=== PATIENT | female | born 1955 | race Caucasian/White ===

== ENCOUNTER 2019-02-14 23:35 | Inpatient (IN) | payer MEDICARE ==
[~2019-02-14] VITALS: Ht 152.4 cm; Wt 71.3 kg
[2019-02-15] MEDS ORDERED: MAG HYDROX/AL HYDROX/SIMETH 30 ML ORAL.SUSP PO PRN (00:15)
[2019-02-15] MEDS ORDERED: METHYL SALICYLATE/MENTHOL TOPICAL OINTMENT 57GM TUBE. TP PRN (00:15)
[2019-02-15] MEDS ORDERED: MAGNESIUM HYDROXIDE 2,400 MG/30 ML ORAL.SUSP. PO PRN (00:15)
[2019-02-15] MEDS ORDERED: ACETAMINOPHEN 325 MG TABLET PO PRN (00:15)
[2019-02-15 00:24] VITALS: BP 159/78
[2019-02-15 05:59] VITALS: BP 149/72
[2019-02-15] MEDS: HALOPERIDOL LACT 5 MG/ML VIAL. IM SCH (09:51)
[2019-02-15 13:02] LABS: BASO % 0 % (0-3); EOS % 0 % (0-3); LYMPH % 21 % (24-48); MEAN CORPUSCULAR HEMOGLOBIN 31 pg (25-35); MEAN CORPUSCULAR HGB CONC 33 g/dL (31-37); MEAN CORPUSCULAR VOLUME 92 fL (79-100); MONO # 0.5 x10^3/uL (0.0-1.1); MONO % 5 % (0-9); NEUT # 7.1 x10^3uL (1.8-7.7); NEUT % 74 % (31-73); PLATELET COUNT 295 x10^3/uL (140-400); RED BLOOD COUNT 4.56 x10^6/uL (3.50-5.40); RED CELL DISTRIBUTION WIDTH 13.3 % (11.5-14.5); WHITE BLOOD COUNT 9.6 x10^3/uL (4.0-11.0)
[2019-02-15 13:10] LABS: ALBUMIN 3.8 g/dL (3.4-5.0); CALCIUM 9.4 mg/dL (8.5-10.1); CREATININE 0.7 mg/dL (0.6-1.0); GFR 84.8; MAGNESIUM 2.2 mg/dL (1.8-2.4); POTASSIUM 3.9 mmol/L (3.5-5.1); TOTAL BILIRUBIN 0.3 mg/dL (0.2-1.0); TOTAL PROTEIN 7.8 g/dL (6.4-8.2)
[2019-02-15 16:07] LABS: BILIRUBIN,URINE NEG (NEG); CLARITY,URINE CLEAR; COLOR,URINE YELLOW; GLUCOSE,URINE NEG (NEG)
[2019-02-15 16:08] LABS: BACTERIA,URINE 0 /HPF (0-FEW); NITRITE,URINE NEG (NEG); RBC,URINE OCC /HPF (0-2); SQUAMOUS EPITHELIAL CELL,UR FEW /LPF; UROBILINOGEN,URINE 0.2 mg/dL (0.2 mg/dL)
[2019-02-15 16:24] VITALS: BP 156/88
[2019-02-15 17:06] LABS: THYROXINE 7.8 ug/dL (4.5-12.0)
[2019-02-15 21:03] LABS: THYROID STIM HORMONE (TSH) 1.295 uIU/mL (0.358-3.740)
--- NOTE | 2019-02-15 21:27 | HP ---
ADMIT DATE: 02/14/2019 This note covers elements not covered in my initial note of 02/15. IDENTIFYING DATA: The patient is a 63-year-old female referred to us from [facility] Emergency Room after she presented there from home via EMS after the police was called as the patient was withholding medications from her elderly mother. It was deemed that the patient was a potential danger and there is an order restraining her from returning to the home. She does have a history of schizoaffective disorder, bipolar type and has not been taking her psychotropics for several months and not going for her treatment to the [facility]. She has also failed a prior inpatient hospitalization at [facility], Psychiatry Unit and they refused to take her back because of her noncompliance with treatment and they felt they were unable to care for her given her level of psychosis, agitation, elopement. The patient was refusing to allow home health to enter the house, was found to have a large quantity of matches at the bottom of the stairs and the family were unsure of the intent. She was delusional, paranoid, making sexually inappropriate behaviors in the ambulance on the way there. CHIEF COMPLAINT: "No." I sat with the patient in her room for some time, but she is paranoid, psychotic, had a fixed stare, refused to answer any questions. I had also been called as an emergency early this morning as the patient was extremely psychotic, unmanageable. Her sister, Talita White, is her guardian. We got a consent from her and the patient requested intramuscular medications and she was started on Haldol 5 mg IM, Ativan 0.5 mg IM daily since oral psychotropics have been ineffective. HISTORY OF PRESENT ILLNESS: The patient has a long history of schizoaffective disorder, bipolar type treated at the [facility]. Those records will be requested, but at the time of this dictation, I have reviewed records from [facility]. In the past when she was hospitalized there at one point, she was treated on Seroquel, Effexor, Depakote and lithium, but as noted, she is noncompliant with the psychotropics recently. She has had significant sleep and appetite changes and behaviors that have been deemed dangerous as noted above. Reportedly, there is an order of protection and no trespassing order filed against the patient by the sister and the parents DPOA that she cannot return home. PAST MEDICAL HISTORY: Noncontributory. ALLERGIES: CODEINE, SULFADIAZINE and she is allergic to MILK-CONTAINING PRODUCTS and MONOSODIUM GLUTAMATE. CURRENT PSYCHOTROPICS: As noted, Haldol 5 mg IM daily started this morning together with Ativan 0.5 mg IM daily. PAST PSYCHIATRIC HISTORY: She has had several stays at other psych facilities including [facility], [facility], [facility]. Records will be requested from all of these. FAMILY HISTORY: Noncontributory. SOCIAL HISTORY: No history of alcohol, drug abuse, physical, sexual or elder abuse. She is not known to be a perpetrator from the information I have at this time. ASSETS: Supportive sister who is her guardian, medically reasonably healthy. REACTION TO HOSPITALIZATION: The patient resistive, but not forthcoming talking about her response to this. MENTAL STATUS EXAMINATION: The patient was seen individually on evening of 02/15. She refused to answer orientation questions, sat across the room for me for an extended period of time, refusing to answer question with a fixed stare, seemed paranoid, psychotic. No active suicidal or homicidal ideation. Attention span is short. Language function is intact. Intellect is average. Insight is poor. Judgment is impaired. IMPRESSION: Schizoaffective disorder, bipolar type mixed with psychotic features; anxiety disorder, unspecified; impulse control disorder, unspecified. Rest diagnoses as above. PLAN: Admit to Geropsychiatry Unit at [facility]. I will see the patient daily individually from a psychiatric standpoint. Request past records. Continue the IM medications for now. Consider Depo preparations. Estimated length of stay 10-12 days. DISPOSITION: Since she cannot return home, placement will need to be arranged. QIANA MARTEL MD DR: KOSTA/kuldip JOB#: [id number] / [id number]
--- NOTE | 2019-02-15 22:29 | PDOC ---
Exam Note: Johny Note: Please also refer to the separate dictated note~for this date of service dictated separately. Discussed the patient with Nursing staff reviewed the chart.~Reviewed interim history and current functioning. Reviewed vital signs,~Labs/ Radiology~and current medications noted below. Continue current treatment with the changes noted in the dictated addendum note Assessment: Vital Signs/I&O: Vital Signs Date Time Temp Pulse Resp B/P (MAP) Pulse Ox O2 Delivery O2 Flow Rate FiO2 02/15/19 16:24 97.8 104 20 156/88 (110) 98 02/15/19 05:59 Room Air Labs: Laboratory Tests Test 02/15/19 12:40 02/15/19 14:20 White Blood Count 9.6 x10^3/uL (4.0-11.0) Red Blood Count 4.56 x10^6/uL (3.50-5.40) Hemoglobin 14.0 g/dL (12.0-15.5) Hematocrit 42.0 % (36.0-47.0) Mean Corpuscular Volume 92 fL (79-100) Mean Corpuscular Hemoglobin 31 pg (25-35) Mean Corpuscular Hemoglobin Concent 33 g/dL (31-37) Red Cell Distribution Width 13.3 % (11.5-14.5) Platelet Count 295 x10^3/uL (140-400) Neutrophils (%) (Auto) 74 % (31-73) H Lymphocytes (%) (Auto) 21 % (24-48) L Monocytes (%) (Auto) 5 % (0-9) Eosinophils (%) (Auto) 0 % (0-3) Basophils (%) (Auto) 0 % (0-3) Neutrophils # (Auto) 7.1 x10^3uL (1.8-7.7) Lymphocytes # (Auto) 2.0 x10^3/uL (1.0-4.8) Monocytes # (Auto) 0.5 x10^3/uL (0.0-1.1) Eosinophils # (Auto) 0.0 x10^3/uL (0.0-0.7) Basophils # (Auto) 0.0 x10^3/uL (0.0-0.2) Sodium Level 139 mmol/L (136-145) Potassium Level 3.9 mmol/L (3.5-5.1) Chloride Level 103 mmol/L (98-107) Carbon Dioxide Level 26 mmol/L (21-32) Anion Gap 10 (6-14) Blood Urea Nitrogen 13 mg/dL (7-20) Creatinine 0.7 mg/dL (0.6-1.0) Estimated GFR (Cockcroft-Gault) 84.8 BUN/Creatinine Ratio 19 (6-20) Glucose Level 153 mg/dL (70-99) H Calcium Level 9.4 mg/dL (8.5-10.1) Magnesium Level 2.2 mg/dL (1.8-2.4) Iron Level 46 ug/dL (50-170) L Total Iron Binding Capacity 359 ug/dL (250-450) Iron Saturation 13 % (15-34) L Total Bilirubin 0.3 mg/dL (0.2-1.0) Aspartate Amino Transferase (AST) 21 U/L (15-37) Alanine Aminotransferase (ALT) 34 U/L (14-59) Alkaline Phosphatase 122 U/L (46-116) H Total Protein 7.8 g/dL (6.4-8.2) Albumin 3.8 g/dL (3.4-5.0) Albumin/Globulin Ratio 1.0 (1.0-1.7) Triglycerides Level 80 mg/dL (0-150) Cholesterol Level 212 mg/dL (0-200) H LDL Cholesterol, Calculated 145 mg/dL (0-100) H VLDL Cholesterol, Calculated 16 mg/dL (0-40) Non-HDL Cholesterol Calculated 161 mg/dL (0-129) H HDL Cholesterol 51 mg/dL (40-60) Cholesterol/HDL Ratio 4.0 Thyroid Stimulating Hormone (TSH) 1.295 uIU/mL (0.358-3.740) Thyroxine (T4) 7.8 ug/dL (4.5-12.0) Total Triiodothyronine (TT3) 133 ng/dL (71-180) Urine Collection Type Unknown Urine Color Yellow Urine Clarity Clear Urine pH 7.0 Urine Specific Ogden 1.020 Urine Protein Neg (NEG-TRACE) Urine Glucose (UA) Neg mg/dL (NEG) Urine Ketones (Stick) 15 mg/dL (NEG) Urine Blood Trace (NEG) Urine Nitrite Neg (NEG) Urine Bilirubin Neg (NEG) Urine Urobilinogen Dipstick 0.2 mg/dL (0.2 mg/dL) Urine Leukocyte Esterase Neg (NEG) Urine RBC Occ /HPF (0-2) Urine WBC 1-4 /HPF (0-4) Urine Squamous Epithelial Cells Few /LPF Urine Bacteria 0 /HPF (0-FEW) Current Medications: Meds: Current Medications Medications (Trade) Dose Ordered Sig/Victorino Route PRN Reason Start Time Stop Time Status Last Admin Dose Admin Haloperidol Lactate (Haldol) 5 mg DAILY IM 02/15/19 09:45 02/15/19 09:55 Lorazepam (Ativan Inj) 0.5 mg DAILY IM 02/15/19 09:45 02/15/19 09:55 I have reviewed the current psychotropics carefully including drug interactions. Risk benefit ratio favors no change other than as noted in my dictated progress note. Diagnosis: Problems: (1) Anxiety disorder (2) Bipolar affective disorder, mixed (3) Bipolar affective, mixed, sev w/ psych (4) Major depressive disorder, recurrent episode (5) Impulse control disorder QIANA MARTEL MD Feb 15, 2019 22:29
[2019-02-16 01:10] LABS: HEMOGLOBIN A1C 5.7 % (4.8-5.6)
[2019-02-16 05:42] VITALS: BP 141/73
[2019-02-16] MEDS: HALOPERIDOL LACT 5 MG/ML VIAL. IM SCH (09:21)
[2019-02-16 16:06] VITALS: BP 153/86
[2019-02-16] MEDS: CHOLECALCIFEROL (VITAMIN D3) 50,000 UNIT CAPSULE PO SCH (17:05)
--- NOTE | 2019-02-17 00:21 | CONS ---
DATE OF CONSULTATION: REASON FOR CONSULTATION: Medical management. HISTORY OF PRESENT ILLNESS: The patient is a 63-year-old female patient who was admitted on account of not taking her medication for several months, withholding medication from elderly mother, not allow home health to enter the house, found to have large quantity of matches at the bottom of the stairs, family unsure of the intent. She is delusional, paranoid, making sexually inappropriate behaviors in the Emergency Room, in ambulance on the way here, all this in a background of schizoaffective disorder with psychosis and bipolar disorder, mixed. PAST MEDICAL HISTORY: Unobtainable. The patient refused to answer any question. PAST PSYCHIATRIC HISTORY: Significant for schizophrenia, bipolar with depression. PAST SURGICAL HISTORY: Unobtainable as the patient is refusing to answer any questions. ALLERGIES: She is allergic to MONOSODIUM GLUTAMATE, MILK CONTAINING PRODUCTS, CODEINE AND SULFADIAZINE. We actually do not know the medication that she takes at home. Apparently, she has been admitted to different psychiatric units before. She apparently was admitted to [facility], [facility] and another center in [place] for inpatient psychiatric treatment, although I do not have any records from there. FAMILY HISTORY: Unobtainable. SOCIAL HISTORY: She apparently lives with her elderly mother. She is not forthcoming with any information. PHYSICAL EXAMINATION: GENERAL: On examining her today, she was sitting comfortably in her chair, in no apparent respiratory distress. There was no pallor, jaundice, cyanosis or thyromegaly. No jugular venous distention. No limb edema. VITAL SIGNS: Her heart rate was 80, blood pressure 153/86, temperature was 98.1, respiratory rate was 20 and oxygen saturation was 97%. She seemed to be medically stable. NEUROLOGIC: She walks without an assistance or assistive devices. LABORATORY DATA: Showed that her serum sodium was 139, potassium 3.9, chloride 103, bicarbonate 26, anion gap of 10, BUN 13, creatinine 0.7, estimated GFR was 84 mL per minute. Her glucose was 153, calcium was 9.4, magnesium 2.2. Her total bilirubin, AST, ALT, alkaline phosphatase were normal. Total protein was 7.8, albumin was 3.8. Her white cell count was 9600, hemoglobin 14, hematocrit 42, MCV 92 and platelet count 295,000. Her serum triglycerides were 80, total cholesterol 212, LDL cholesterol 145, VLDL was 16, HDL cholesterol 51, cholesterol to HDL cholesterol ratio was 4. Her 25-hydroxy vitamin D was 24, which is low. Her TSH, total T4 and total T3 are all within normal ranges. Her serum iron is slightly low at 46, TIBC is high at 359 and iron saturation was 13%. Her hemoglobin A1c was 5.7%. Her urinalysis showed the urine was yellow, clear with a pH of 7, specific gravity of 1.020. The urine was negative for protein, glucose. It was trace of ketones, trace of blood, negative for nitrite and leukocyte esterase. There are occasional rbc's, 1-4 wbc's and very few bacteria. Her treponema pallidum antibodies are nonreactive. IMPRESSION: In summary, this is a 63-year-old female patient who was admitted on account of not taking her medication for several months, withholding medication from elderly mother, not allow home health to enter house, found to have large quantity of matches at the bottom of the stairs, family unsure of the intent. She is delusional, paranoid, making sexually inappropriate behavior in the Emergency Room and in ambulance the way here. All this in a background of schizoaffective disorder with psychosis, bipolar disorder, mixed. It is difficult to obtain any information from her. She is not forthcoming with any information. She apparently was admitted in different places at [facility] or [facility] in [facility]. We would order medical record from all these centers to get more information about her medically apart from vitamin D deficiency and she is otherwise stable. Her blood sugar was slightly high; however, this is random blood sugar, not fasting particular. I will obviously follow all her lab works and obviously once medical record become available, I will review them and make any necessary recommendation. Thank you, Dr. Madsen for allowing me to participate in the care of this patient. EMILIANO OROZCO MD DR: SANDY/kuldip JOB#: [id number] / [id number]
[2019-02-17 05:43] VITALS: BP 142/75
--- NOTE | 2019-02-17 08:50 | PDOC ---
Exam Note: Johny Note: Late entry for DOS 02/16/2019. Please also refer to the separate dictated note~for this date of service dictated separately.~Patient seen individually. Discussed the patient with Nursing staff reviewed the chart.~Reviewed interim history and current functioning. Reviewed vital signs,~Labs/ Radiology~and current medications noted below. Continue current treatment with the changes noted in the dictated addendum note Assessment: Vital Signs/I&O: Vital Signs Date Time Temp Pulse Resp B/P (MAP) Pulse Ox O2 Delivery O2 Flow Rate FiO2 02/17/19 05:43 97.4 110 20 142/75 (97) 100 Room Air I & O 02/16/19 02/16/19 02/17/19 14:59 22:59 06:59 Intake Total 600 ml 240 ml 100 ml Balance 600 ml 240 ml 100 ml Current Medications: Meds: Current Medications Medications (Trade) Dose Ordered Sig/Victorino Route PRN Reason Start Time Stop Time Status Last Admin Dose Admin Vitamin D (Vitamin D3) 50,000 unit WEEKLY PO 02/16/19 16:45 02/16/19 17:05 I have reviewed the current psychotropics carefully including drug interactions. Risk benefit ratio favors no change other than as noted in my dictated progress note. Diagnosis: Problems: (1) Anxiety disorder (2) Bipolar affective disorder, mixed (3) Bipolar affective, mixed, sev w/ psych (4) Major depressive disorder, recurrent episode (5) Impulse control disorder QIANA MARTEL MD Feb 17, 2019 08:50
[2019-02-17] MEDS: HALOPERIDOL LACT 5 MG/ML VIAL. IM SCH (09:07)
[2019-02-17] MEDS ORDERED: CHOLECALCIFEROL (VITAMIN D3) 50,000 UNIT CAPSULE PO ONE (13:00)
[2019-02-17 15:43] VITALS: BP 141/79
[2019-02-17] MEDS: risperiDONE ORAL 1 MG/ML 30ml BOTTLE. SL SCH (20:33)
--- NOTE | 2019-02-17 22:24 | PDOC ---
Exam Note: Johny Note: Please also refer to the separate dictated note~for this date of service dictated separately.~Patient seen individually. Discussed the patient with Nursing staff reviewed the chart.~Reviewed interim history and current functioning. Reviewed vital signs,~Labs/ Radiology~and current medications noted below. Continue current treatment with the changes noted in the dictated addendum note Assessment: Vital Signs/I&O: Vital Signs Date Time Temp Pulse Resp B/P (MAP) Pulse Ox O2 Delivery O2 Flow Rate FiO2 02/17/19 15:43 97.8 101 20 141/79 (99) 98 Room Air I & O 02/16/19 02/16/19 02/17/19 15:00 23:00 07:00 Intake Total 600 ml 240 ml 100 ml Balance 600 ml 240 ml 100 ml Current Medications: Meds: Current Medications Medications (Trade) Dose Ordered Sig/Victorino Route PRN Reason Start Time Stop Time Status Last Admin Dose Admin Vitamin D (Vitamin D3) 50,000 unit 1X ONCE PO 02/17/19 13:00 02/17/19 13:01 DC 02/17/19 13:26 Risperidone (RisperDAL) 1 mg QHS SL 02/17/19 21:00 02/17/19 20:34 I have reviewed the current psychotropics carefully including drug interactions. Risk benefit ratio favors no change other than as noted in my dictated progress note. Diagnosis: Problems: (1) Anxiety disorder (2) Bipolar affective disorder, mixed (3) Bipolar affective, mixed, sev w/ psych (4) Major depressive disorder, recurrent episode (5) Impulse control disorder QIANA MARTEL MD Feb 17, 2019 22:23
--- NOTE | 2019-02-18 00:52 | PN ---
DATE: 02/16/2019 PSYCHIATRIC PROGRESS NOTE This late entry, 02/16, covers elements not covered in my initial note. SUBJECTIVE: I met with the patient in the evening of 02/16. Per nursing report, the patient remains quite delusional and psychotic. She made a statement to the nursing staff "I can't take medications, I'm ." Nursing staff reassured her that this was her perception rather than reality. When nursing staff asked orientation questions as I did, she responded back "do you know where you are." Most of the morning, she was staring at the wall looking out of the window, quite psychotic, but much more interactive and talkative as I met with her in the evening. She slept 7 hours previous night, did receive her IM Haldol and Ativan. REVIEW OF SYSTEMS: No CV, , pulmonary, eye, ENT system symptoms on review. I met with her at length in her room. MENTAL STATUS EXAM: Oriented to herself and situation. Speech much more verbal with me, less paranoid. Abstraction fair, computation impaired, language function intact, attention span short. Mood and affect withdrawn. I reviewed past records from [facility] and a diagnosis of schizoaffective disorder, bipolar type, with psychotic features, and treatment at different times on Seroquel, Effexor, Depakote, lithium, amongst others. No active suicidal or homicidal ideation. Still psychotic as I assessed in the evening. LABORATORY DATA: Reviewed. IMPRESSION: Schizoaffective disorder, bipolar type, mixed with psychotic features; anxiety disorder, unspecified; impulse control disorder, unspecified. PLAN: Continue Haldol and Ativan IM scheduled daily given the reasons noted previously. May consider Risperdal Consta given her significant noncompliance with treatment. We will consider starting her on Depakote as well as she is more cooperative with taking her psychotropics. We will await past psychiatric records from [facility]. I have carefully evaluated her psychotropics, drug interactions, risk/benefit ratio correlating it with past treatments. We will make further changes as clinically indicated. QIANA MARTEL MD DR: KOSTA/kuldip JOB#: [id number] / [id number]
[2019-02-18 06:27] VITALS: BP 129/79
[2019-02-18] MEDS: HALOPERIDOL LACT 5 MG/ML VIAL. IM SCH (09:31)
[2019-02-18 15:48] VITALS: BP 136/75
[2019-02-18] MEDS: risperiDONE ORAL 1 MG/ML 30ml BOTTLE. SL SCH (20:46)
--- NOTE | 2019-02-18 21:55 | PDOC ---
Exam Note: Johny Note: Please also refer to the separate dictated note~for this date of service dictated separately.~Patient seen individually. Discussed the patient with Nursing staff reviewed the chart.~Reviewed interim history and current functioning. Reviewed vital signs,~Labs/ Radiology~and current medications noted below. Continue current treatment with the changes noted in the dictated addendum note Assessment: Vital Signs/I&O: Vital Signs Date Time Temp Pulse Resp B/P (MAP) Pulse Ox O2 Delivery O2 Flow Rate FiO2 02/18/19 15:48 96.9 106 18 136/75 (95) 98 02/17/19 15:43 Room Air I & O 02/17/19 02/17/19 02/18/19 15:00 23:00 07:00 Intake Total 720 ml 240 ml 0 ml Balance 720 ml 240 ml 0 ml Current Medications: I have reviewed the current psychotropics carefully including drug interactions. Risk benefit ratio favors no change other than as noted in my dictated progress note. Diagnosis: Problems: (1) Anxiety disorder (2) Bipolar affective disorder, mixed (3) Bipolar affective, mixed, sev w/ psych (4) Major depressive disorder, recurrent episode (5) Impulse control disorder QIANA MARTEL MD Feb 18, 2019 21:55
--- NOTE | 2019-02-19 00:57 | PN ---
DATE: 02/17/2019 This late entry, 02/17/2019, covers elements not covered in my initial note. SUBJECTIVE: I met with the patient in the evening of 02/17/2019. The patient slept 5-1/2 hours previous night. She did come out and sit in the day room, which is quite an improvement for her, attended groups, but only spoken monosyllabic responses. She is still delusional, psychotic, believes she is , and refused vitamin D. Later, when nursing staff stated they might have to syringe it for her, she accepted it. She still receives IM Haldol 5 mg, Ativan 0.5 mg daily, and I have reviewed her past psychiatric records from the [facility] Psychiatry service and past treatments included Invega Sustenna and Haldol Decanoate 100 mg IM and then Zyprexa 10 mg daily along with lithium and Depakote as mood stabilizers at different times. REVIEW OF SYSTEMS: No CV, , pulmonary, eye, ENT system symptoms on review. Reliability somewhat poor due to her paranoia. I met with her at some length in her room. MENTAL STATUS EXAM: Oriented to herself and situation, though she is quite dismissive in questions of orientation I asked of her. Abstraction fair, computation impaired, language function intact, attention span short. Mood and affect somewhat withdrawn, still paranoid, psychotic, but better than before. Verbally little more interactive. LABORATORY DATA: Reviewed. IMPRESSION: Schizoaffective disorder, bipolar type, mixed with psychotic features; psychotic disorder, unspecified; mild cognitive impairment. Rest unchanged. PLAN: We will go ahead and start Risperdal 1 mg daily. Continue the scheduled Haldol IM and Ativan IM for now. Consider Depakote as a mood stabilizer, increase the Risperdal gradually as tolerated and ultimately stop the daily IM Haldol, Ativan and consider Risperdal Consta at some point depending on her compliance with oral psychotropics. MAN Suri MARTEL MD DR: KOSTA/kuldip JOB#: [id number] / [id number]
[2019-02-19 06:10] VITALS: BP 138/81
[2019-02-19] MEDS: HALOPERIDOL LACT 5 MG/ML VIAL. IM SCH (09:28)
[2019-02-19 15:48] VITALS: BP 131/72
[2019-02-19] MEDS: risperiDONE ORAL 1 MG/ML 30ml BOTTLE. SL SCH (20:38)
--- NOTE | 2019-02-19 22:07 | PDOC ---
Exam Note: Johny Note: Please also refer to the separate dictated note~for this date of service dictated separately.~Patient seen individually. Discussed the patient with Nursing staff reviewed the chart.~Reviewed interim history and current functioning. Reviewed vital signs,~Labs/ Radiology~and current medications noted below. Continue current treatment with the changes noted in the dictated addendum note Assessment: Vital Signs/I&O: Vital Signs Date Time Temp Pulse Resp B/P (MAP) Pulse Ox O2 Delivery O2 Flow Rate FiO2 02/19/19 15:48 97.4 104 18 131/72 (91) 98 Room Air I & O 02/18/19 02/18/19 02/19/19 15:00 23:00 07:00 Intake Total 600 ml 360 ml 0 ml Balance 600 ml 360 ml 0 ml Current Medications: I have reviewed the current psychotropics carefully including drug interactions. Risk benefit ratio favors no change other than as noted in my dictated progress note. Diagnosis: Problems: (1) Anxiety disorder (2) Bipolar affective disorder, mixed (3) Bipolar affective, mixed, sev w/ psych (4) Major depressive disorder, recurrent episode (5) Impulse control disorder QIANA MARTEL MD Feb 19, 2019 22:07
[2019-02-20 05:22] VITALS: BP 125/81
[2019-02-20] MEDS: HALOPERIDOL LACT 5 MG/ML VIAL. IM SCH (07:56)
[2019-02-20] MEDS: risperiDONE MICROSPHERES 25 MG/2 ML DISP.SYRIN. IM SCH (09:00)
[2019-02-20 15:29] VITALS: BP 131/80
[2019-02-20] MEDS: risperiDONE ORAL 1 MG/ML 30ml BOTTLE. SL SCH (20:44)
[2019-02-20] MEDS: DIVALPROEX ER 500 MG TAB.ER.24H PO SCH ×2 (20:44→20:47)
[2019-02-20] MEDS: DIVALPROEX 125 MG CAP.SPRINK PO SCH (21:07)
--- NOTE | 2019-02-20 22:12 | PDOC ---
Exam Note: Johny Note: Please also refer to the separate dictated note~for this date of service dictated separately.~Patient seen individually. Discussed the patient with Nursing staff reviewed the chart.~Reviewed interim history and current functioning. Reviewed vital signs,~Labs/ Radiology~and current medications noted below. Continue current treatment with the changes noted in the dictated addendum note Assessment: Vital Signs/I&O: Vital Signs Date Time Temp Pulse Resp B/P (MAP) Pulse Ox O2 Delivery O2 Flow Rate FiO2 02/20/19 15:29 98.4 111 22 131/80 (97) 98 02/20/19 05:22 Room Air I & O 02/19/19 02/19/19 02/20/19 15:00 23:00 07:00 Intake Total 1200 ml 240 ml 0 ml Balance 1200 ml 240 ml 0 ml Current Medications: Meds: Current Medications Medications (Trade) Dose Ordered Sig/Victorino Route PRN Reason Start Time Stop Time Status Last Admin Dose Admin Risperidone (RisperDAL CONSTA) 25 mg Q2WKS IM 02/20/19 09:00 02/20/19 09:59 Divalproex Sodium (Depakote Er) 500 mg QHS PO 02/20/19 21:00 02/20/19 20:50 DC 02/20/19 20:44 Divalproex Sodium (Depakote Sprinkles) 500 mg HS PO 02/20/19 21:00 02/20/19 21:07 I have reviewed the current psychotropics carefully including drug interactions. Risk benefit ratio favors no change other than as noted in my dictated progress note. Diagnosis: Problems: (1) Anxiety disorder (2) Bipolar affective disorder, mixed (3) Bipolar affective, mixed, sev w/ psych (4) Major depressive disorder, recurrent episode (5) Impulse control disorder QIANA MARTEL MD Feb 20, 2019 22:12
--- NOTE | 2019-02-20 22:50 | PN ---
DATE: 02/18/2019 This late entry, 02/18/2019, covers elements not covered in my initial note. SUBJECTIVE: I met with the patient in the evening of 02/18/2019. The patient slept 8-1/4 hours previous night. She has been somewhat withdrawn, isolative in her room, spending time with another patient, staring at floor at times, psychotic. At one point, she was found on the floor, doing yoga. When I questioned her on this, she states she learned it in [place]. She took her bedtime Risperdal with encouragement. REVIEW OF SYSTEMS: No CV, , pulmonary, eye, ENT system symptoms on review. MENTAL STATUS EXAM: Oriented to herself and situation. Speech has some latency, coherent, often responses monosyllabic. Abstraction fair, computation impaired, language function intact, attention span short. Mood and affect somewhat withdrawn. LABORATORY DATA: Reviewed. IMPRESSION: Unchanged from initial note. PLAN: No change from initial note. QIANA MARTEL MD DR: KOSTA/kuldip JOB#: [id number] / [id number]
--- NOTE | 2019-02-20 23:00 | PN ---
DATE: 02/19/2019 This last entry 02/19 covers elements not covered in my initial note. SUBJECTIVE: I met with the patient evening of 02/19. The patient was also staffed at treatment team meeting with the entire team in the morning. Average sleep is about 6-1/4 hours, appetite 75-100%. She is reluctantly intermittently compliant with her psychotropics. She remains psychotic, somewhat withdrawn, less so than before. REVIEW OF SYSTEMS: No CV, , pulmonary, eye, ENT system symptoms on review. MENTAL STATUS EXAM: Oriented to herself, situation. Speech moderate latency, often responses monosyllabic. Abstraction fair. Computation impaired. Language function intact. Mood and affect is withdrawn. LABORATORY DATA: Reviewed. IMPRESSION: Unchanged from initial note. PLAN: No change from initial note. MAN Suri MARTEL MD DR: KOSTA/kuldip JOB#: [id number] / [id number]
[2019-02-21 05:41] VITALS: BP 144/75
[2019-02-21] MEDS: HALOPERIDOL LACT 5 MG/ML VIAL. IM SCH (08:11)
[2019-02-21 15:50] VITALS: BP 120/63
[2019-02-21] MEDS: DIVALPROEX 125 MG CAP.SPRINK PO SCH (19:54)
[2019-02-21] MEDS: risperiDONE ORAL 1 MG/ML 30ml BOTTLE. SL SCH (19:54)
--- NOTE | 2019-02-21 22:01 | PDOC ---
Exam Note: Johny Note: Please also refer to the separate dictated note~for this date of service dictated separately.~Patient seen individually. Discussed the patient with Nursing staff reviewed the chart.~Reviewed interim history and current functioning. Reviewed vital signs,~Labs/ Radiology~and current medications noted below. Continue current treatment with the changes noted in the dictated addendum note Assessment: Vital Signs/I&O: Vital Signs Date Time Temp Pulse Resp B/P (MAP) Pulse Ox O2 Delivery O2 Flow Rate FiO2 02/21/19 15:50 97.2 100 18 120/63 (82) 99 02/20/19 05:22 Room Air I & O 02/20/19 02/20/19 02/21/19 15:00 23:00 07:00 Intake Total 720 ml 480 ml 0 ml Balance 720 ml 480 ml 0 ml Current Medications: I have reviewed the current psychotropics carefully including drug interactions. Risk benefit ratio favors no change other than as noted in my dictated progress note. Diagnosis: Problems: (1) Anxiety disorder (2) Bipolar affective disorder, mixed (3) Bipolar affective, mixed, sev w/ psych (4) Major depressive disorder, recurrent episode (5) Impulse control disorder QIANA MARTEL MD Feb 21, 2019 22:01
[2019-02-22 06:40] VITALS: BP 120/75
[2019-02-22] MEDS: HALOPERIDOL LACT 5 MG/ML VIAL. IM SCH (07:49)
[2019-02-22 16:05] VITALS: BP 121/78
[2019-02-22] MEDS ORDERED: DIVALPROEX ER 250 MG TAB.ER.24H. PO SCH (21:00)
--- NOTE | 2019-02-22 21:05 | PDOC ---
Exam Note: Johny Note: Please also refer to the separate dictated note~for this date of service dictated separately.~Patient seen individually. Discussed the patient with Nursing staff reviewed the chart.~Reviewed interim history and current functioning. Reviewed vital signs,~Labs/ Radiology~and current medications noted below. Continue current treatment with the changes noted in the dictated addendum note Assessment: Vital Signs/I&O: Vital Signs Date Time Temp Pulse Resp B/P (MAP) Pulse Ox O2 Delivery O2 Flow Rate FiO2 02/22/19 16:05 98.4 108 20 121/78 (92) 98 Room Air I & O 02/21/19 02/21/19 02/22/19 14:59 22:59 06:59 Intake Total 600 ml 240 ml Balance 600 ml 240 ml Current Medications: I have reviewed the current psychotropics carefully including drug interactions. Risk benefit ratio favors no change other than as noted in my dictated progress note. Diagnosis: Problems: (1) Anxiety disorder (2) Bipolar affective disorder, mixed (3) Bipolar affective, mixed, sev w/ psych (4) Major depressive disorder, recurrent episode (5) Impulse control disorder QIANA MARTEL MD Feb 22, 2019 21:05
[2019-02-22] MEDS: risperiDONE ORAL 1 MG/ML 30ml BOTTLE. SL SCH (21:35)
--- NOTE | 2019-02-22 22:28 | PN ---
DATE: 02/20/2019 PSYCHIATRIC PROGRESS NOTE This late entry, 02/20/2019, covers elements not covered in my initial note. SUBJECTIVE: I met with the patient in the evening of 02/20/2019. The patient slept 7-1/4 hours previous night. She has been coming out for her meals, which is an improvement. Did receive her Risperdal Consta on 02/20/2019, slept 7-1/4 hours. REVIEW OF SYSTEMS: No CV, , pulmonary, eye, ENT system symptoms on review. MENTAL STATUS EXAM: Oriented to herself and situation. Speech moderate latency, often responses monosyllabic. Abstraction fair, computation impaired, language function intact. Mood and affect withdrawn, still spends much time in her room, but less so than before. LABORATORY DATA: Reviewed. IMPRESSION: Unchanged from initial note. PLAN: Start Depakote 500 mg p.o. at bedtime. Check CBC, CMP, valproic acid level in 3 days. Continue rest of the psychotropics. QIANA MARTEL MD DR: KOSTA/kuldip JOB#: [id number] / [id number]
--- NOTE | 2019-02-22 22:30 | PN ---
DATE: 02/21/2019 PSYCHIATRIC PROGRESS NOTE This late entry of 02/21/2019 covers the elements not covered in my initial note. SUBJECTIVE: I met with the patient in the evening of 02/21/2019. The patient slept 7-1/2 hours previous night. The patient remains somewhat withdrawn, took her Depakote in pudding, received IM Haldol and Ativan earlier in the day on 02/21/2019. REVIEW OF SYSTEMS: No CV, , pulmonary, eye system symptoms on review. MENTAL STATUS EXAM: Oriented to herself and situation. Speech moderate latency, often responses monosyllabic. Abstraction fair, computation impaired, language function intact, attention span short. Mood and affect withdrawn, but less so than before. LABORATORY DATA: Reviewed. IMPRESSION: Schizoaffective disorder, bipolar type, mixed with psychotic features; psychotic disorder, unspecified. Rest unchanged, mild cognitive impairment. PLAN: Continue current psychotropics including the Risperdal Consta, oral Risperdal 1 mg at bedtime, may stop the IM Haldol and Ativan in due course. Continue Depakote. Adjust to reach therapeutic level with full set of labs and valproic acid level on 02/23/2019. QIANA MARTEL MD DR: KOSTA/kuldip JOB#: [id number] / [id number]
[2019-02-23 06:39] VITALS: BP 121/71
[2019-02-23] MEDS: HALOPERIDOL LACT 5 MG/ML VIAL. IM SCH (08:48)
[2019-02-23] MEDS: CHOLECALCIFEROL (VITAMIN D3) 50,000 UNIT CAPSULE PO SCH (08:49)
[2019-02-23 09:49] LABS: ALBUMIN 3.2 g/dL (3.4-5.0); ALBUMIN/GLOBULIN RATIO 0.8 (1.0-1.7); CALCIUM 9.6 mg/dL (8.5-10.1); CREATININE 0.9 mg/dL (0.6-1.0); GFR 63.4; POTASSIUM 3.9 mmol/L (3.5-5.1); TOTAL BILIRUBIN 0.3 mg/dL (0.2-1.0); TOTAL PROTEIN 7.1 g/dL (6.4-8.2)
[2019-02-23 09:50] LABS: BASO % 0 % (0-3); EOS % 0 % (0-3); HEMATOCRIT 41.1 % (36.0-47.0); HEMOGLOBIN 13.9 g/dL (12.0-15.5); LYMPH # 1.6 x10^3/uL (1.0-4.8); LYMPH % 22 % (24-48); MEAN CORPUSCULAR HEMOGLOBIN 31 pg (25-35); MEAN CORPUSCULAR HGB CONC 34 g/dL (31-37); MEAN CORPUSCULAR VOLUME 92 fL (79-100); MONO # 0.4 x10^3/uL (0.0-1.1); MONO % 5 % (0-9); NEUT # 5.3 x10^3uL (1.8-7.7); NEUT % 72 % (31-73); PLATELET COUNT 274 x10^3/uL (140-400); RED BLOOD COUNT 4.45 x10^6/uL (3.50-5.40); RED CELL DISTRIBUTION WIDTH 13.4 % (11.5-14.5); WHITE BLOOD COUNT 7.3 x10^3/uL (4.0-11.0)
[2019-02-23 10:17] LABS: VAL ACID 33 mcg/mL (50-100)
[2019-02-23 15:50] VITALS: BP 141/83
[2019-02-23] MEDS: risperiDONE ORAL 1 MG/ML 30ml BOTTLE. SL SCH (20:20)
[2019-02-23] MEDS: DIVALPROEX ER 500 MG TAB.ER.24H PO SCH (20:27)
--- NOTE | 2019-02-23 22:25 | PDOC ---
Exam Note: Johny Note: Please also refer to the separate dictated note~for this date of service dictated separately.~Patient seen individually. Discussed the patient with Nursing staff reviewed the chart.~Reviewed interim history and current functioning. Reviewed vital signs,~Labs/ Radiology~and current medications noted below. Continue current treatment with the changes noted in the dictated addendum note Assessment: Vital Signs/I&O: Vital Signs Date Time Temp Pulse Resp B/P (MAP) Pulse Ox O2 Delivery O2 Flow Rate FiO2 02/23/19 15:50 97.4 120 20 141/83 (102) 98 02/23/19 06:39 Room Air I & O 02/22/19 02/22/19 02/23/19 14:59 22:59 06:59 Intake Total 480 ml 240 ml 100 ml Balance 480 ml 240 ml 100 ml Labs: Laboratory Tests Test 02/23/19 09:15 White Blood Count 7.3 x10^3/uL (4.0-11.0) Red Blood Count 4.45 x10^6/uL (3.50-5.40) Hemoglobin 13.9 g/dL (12.0-15.5) Hematocrit 41.1 % (36.0-47.0) Mean Corpuscular Volume 92 fL (79-100) Mean Corpuscular Hemoglobin 31 pg (25-35) Mean Corpuscular Hemoglobin Concent 34 g/dL (31-37) Red Cell Distribution Width 13.4 % (11.5-14.5) Platelet Count 274 x10^3/uL (140-400) Neutrophils (%) (Auto) 72 % (31-73) Lymphocytes (%) (Auto) 22 % (24-48) L Monocytes (%) (Auto) 5 % (0-9) Eosinophils (%) (Auto) 0 % (0-3) Basophils (%) (Auto) 0 % (0-3) Neutrophils # (Auto) 5.3 x10^3uL (1.8-7.7) Lymphocytes # (Auto) 1.6 x10^3/uL (1.0-4.8) Monocytes # (Auto) 0.4 x10^3/uL (0.0-1.1) Eosinophils # (Auto) 0.0 x10^3/uL (0.0-0.7) Basophils # (Auto) 0.0 x10^3/uL (0.0-0.2) Sodium Level 136 mmol/L (136-145) Potassium Level 3.9 mmol/L (3.5-5.1) Chloride Level 102 mmol/L (98-107) Carbon Dioxide Level 24 mmol/L (21-32) Anion Gap 10 (6-14) Blood Urea Nitrogen 17 mg/dL (7-20) Creatinine 0.9 mg/dL (0.6-1.0) Estimated GFR (Cockcroft-Gault) 63.4 BUN/Creatinine Ratio 19 (6-20) Glucose Level 166 mg/dL (70-99) H Calcium Level 9.6 mg/dL (8.5-10.1) Total Bilirubin 0.3 mg/dL (0.2-1.0) Aspartate Amino Transferase (AST) 10 U/L (15-37) L Alanine Aminotransferase (ALT) 18 U/L (14-59) Alkaline Phosphatase 125 U/L (46-116) H Total Protein 7.1 g/dL (6.4-8.2) Albumin 3.2 g/dL (3.4-5.0) L Albumin/Globulin Ratio 0.8 (1.0-1.7) L Valproic Acid Level 33 mcg/mL (50-100) L Valproic Acid Last Dose Date 02/22/19 Valproic Acid Last Dose Time 2100 Current Medications: Meds: Current Medications Medications (Trade) Dose Ordered Sig/Victorino Route PRN Reason Start Time Stop Time Status Last Admin Dose Admin Divalproex Sodium (Depakote Er) 1,000 mg QHS PO 02/23/19 21:00 02/23/19 20:27 I have reviewed the current psychotropics carefully including drug interactions. Risk benefit ratio favors no change other than as noted in my dictated progress note. Diagnosis: Problems: (1) Anxiety disorder (2) Bipolar affective disorder, mixed (3) Bipolar affective, mixed, sev w/ psych (4) Major depressive disorder, recurrent episode (5) Impulse control disorder (6) Mild cognitive impairment (7) Schizoaffective disorder, bipolar type QIANA MARTEL MD Feb 23, 2019 22:25
--- NOTE | 2019-02-23 23:32 | PN ---
DATE: 02/22/2019 PSYCHIATRIC PROGRESS NOTE This late entry 02/22/2019 covers elements not covered in my initial note. SUBJECTIVE: I met with the patient in the evening of 02/22/2019. The patient slept 7 hours previous night. She remains somewhat withdrawn in her room and that is where I met with her, but comes out for meals. REVIEW OF SYSTEMS: No CV, , pulmonary, eye, ENT system symptoms on review. Reliability varies. MENTAL STATUS EXAM: Oriented to herself and situation. Speech moderate latency, often responses monosyllabic. Abstraction fair, computation impaired, and language function intact. Mood and affect withdrawn. She is still paranoid, less so than before. Denies active hallucinations. LABORATORY DATA: Reviewed. IMPRESSION: Schizoaffective disorder, bipolar type, mixed with psychotic features; anxiety disorder, unspecified; mild cognitive impairment. PLAN: We will continue Depakote ER 250 mg 2 at night. Check CBC, CMP, valproic acid level in 3 days. Maintain daily Haldol, Ativan IM and Risperdal 1 mg at bedtime, Zyprexa p.r.n. for now. MAN Suri MARTEL MD DR: KOSTA/kuldip JOB#: [id number] / [id number]
[2019-02-24 06:18] VITALS: BP 114/75
[2019-02-24] MEDS: HALOPERIDOL LACT 5 MG/ML VIAL. IM SCH (08:29)
[2019-02-24 16:10] VITALS: BP 119/76
[2019-02-24] MEDS: DIVALPROEX ER 500 MG TAB.ER.24H PO SCH (20:25)
[2019-02-24] MEDS: risperiDONE ORAL 1 MG/ML 30ml BOTTLE. SL SCH (20:38)
--- NOTE | 2019-02-24 21:11 | PN ---
DATE: 02/23/2019 PROGRESS NOTE This late entry February 23 covers elements not covered in my initial note. SUBJECTIVE: I met with the patient evening of February 23. The patient slept 9-3/4 hours previous night. She refused her vitamin D initially, but took it later. Appetite is reasonable. She did receive IM Haldol, Ativan. Valproic acid level is 33 on Depakote ER 500 mg at bedtime. REVIEW OF SYSTEMS: No CV, , pulmonary, eye, ENT system symptoms on review. MENTAL STATUS EXAMINATION: The patient is oriented to herself and situation. Speech of moderate latency, often responses monosyllabic. At time, she stares with a blank stare, questionably still psychotic. Computation impaired. Language function intact. Attention span short. Mood and affect still depressed, withdrawn. LABORATORY DATA: Valproic acid level is 33 on Depakote ER 500 mg p.o. at bedtime. Labs reviewed. IMPRESSION: Schizoaffective disorder, bipolar type, mixed with psychotic features; anxiety disorder, unspecified; mild cognitive impairment. PLAN: Increase Depakote ER from 500 mg to 1 gram p.o. at bedtime. Check CBC, CMP, valproic acid level, ammonia level in 3 days. Adjust Depakote to reach therapeutic level. Continue rest of the psychotropics. QIANA MARTEL MD DR: KOSTA/kuldip JOB#: [id number] / [id number]
--- NOTE | 2019-02-24 21:55 | PDOC ---
Exam Note: Johny Note: Please also refer to the separate dictated note~for this date of service dictated separately.~Patient seen individually. Discussed the patient with Nursing staff reviewed the chart.~Reviewed interim history and current functioning. Reviewed vital signs,~Labs/ Radiology~and current medications noted below. Continue current treatment with the changes noted in the dictated addendum note Assessment: Vital Signs/I&O: Vital Signs Date Time Temp Pulse Resp B/P (MAP) Pulse Ox O2 Delivery O2 Flow Rate FiO2 02/24/19 16:10 97.6 101 18 119/76 (90) 98 02/24/19 06:18 Room Air I & O 02/23/19 02/23/19 02/24/19 15:00 23:00 07:00 Intake Total 480 ml 240 ml Balance 480 ml 240 ml Current Medications: Meds: Current Medications Medications (Trade) Dose Ordered Sig/Victorino Route PRN Reason Start Time Stop Time Status Last Admin Dose Admin Risperidone (RisperDAL) 1.5 mg QHS SL 02/24/19 21:00 02/24/19 20:38 I have reviewed the current psychotropics carefully including drug interactions. Risk benefit ratio favors no change other than as noted in my dictated progress note. Diagnosis: Problems: (1) Anxiety disorder (2) Bipolar affective disorder, mixed (3) Bipolar affective, mixed, sev w/ psych (4) Major depressive disorder, recurrent episode (5) Impulse control disorder (6) Mild cognitive impairment (7) Schizoaffective disorder, bipolar type QIANA MARTEL MD Feb 24, 2019 21:55
[2019-02-25 05:51] VITALS: BP 129/75
[2019-02-25 15:51] VITALS: BP 143/71
[2019-02-25] MEDS: DIVALPROEX ER 500 MG TAB.ER.24H PO SCH (20:38)
[2019-02-25] MEDS: risperiDONE ORAL 1 MG/ML 30ml BOTTLE. SL SCH (20:38)
--- NOTE | 2019-02-25 21:28 | PDOC ---
Exam Note: Johny Note: Please also refer to the separate dictated note~for this date of service dictated separately.~Patient seen individually. Discussed the patient with Nursing staff reviewed the chart.~Reviewed interim history and current functioning. Reviewed vital signs,~Labs/ Radiology~and current medications noted below. Continue current treatment with the changes noted in the dictated addendum note Assessment: Vital Signs/I&O: Vital Signs Date Time Temp Pulse Resp B/P (MAP) Pulse Ox O2 Delivery O2 Flow Rate FiO2 02/25/19 15:51 98.8 110 16 143/71 (95) 99 02/24/19 06:18 Room Air I & O 02/24/19 02/24/19 02/25/19 15:00 23:00 07:00 Intake Total 960 ml 580 ml Balance 960 ml 580 ml Current Medications: I have reviewed the current psychotropics carefully including drug interactions. Risk benefit ratio favors no change other than as noted in my dictated progress note. Diagnosis: Problems: (1) Anxiety disorder (2) Bipolar affective disorder, mixed (3) Bipolar affective, mixed, sev w/ psych (4) Major depressive disorder, recurrent episode (5) Impulse control disorder (6) Mild cognitive impairment (7) Schizoaffective disorder, bipolar type QIANA MARTEL MD Feb 25, 2019 21:28
--- NOTE | 2019-02-25 23:27 | PN ---
DATE: 02/24/2019 This late entry of 02/24/2019 covers elements not covered in my initial note. SUBJECTIVE: I met with the patient in the evening of 02/24/2019. The patient slept 8-3/4 hours previous night. She spent much time in her room, comes out for meals and snacks. She is alert, oriented per nursing report. Still paranoid, suspicious, less so than before. I met with her at length in her room. She is talking about wanting to be discharged. Social service staff is coordinating with family. REVIEW OF SYSTEMS: No CV, , pulmonary, eye, ENT system symptoms on review. MENTAL STATUS EXAMINATION: Alert, oriented. Speech has some latency, coherent, often responses monosyllabic. Abstraction fair, computation impaired. Language function intact. Attention span short. Mood and affect still withdrawn. LABORATORY DATA: Reviewed. ASSESSMENT: Schizoaffective disorder, bipolar type, mixed with psychotic features, in partial remission. Rest unchanged. PLAN: We will go ahead and discontinue the daily scheduled Haldol and Ativan IM, increase the Risperdal solution from 1 mg at bedtime to 1.5 mg at bedtime, Depakote ER is 1000 mg at bedtime with CBC, CMP, and valproic acid level to be checked on the , and then adjust to reach therapeutic level. MAN Suri MARTEL MD DR: KOSTA/kuldip JOB#: [id number] / [id number]
[2019-02-26 05:45] VITALS: BP 138/76
[2019-02-26 06:54] LABS: BASO % 0 % (0-3); EOS # 0.1 x10^3/uL (0.0-0.7); EOS % 1 % (0-3); HEMATOCRIT 39.3 % (36.0-47.0); HEMOGLOBIN 13.2 g/dL (12.0-15.5); LYMPH # 2.7 x10^3/uL (1.0-4.8); LYMPH % 44 % (24-48); MEAN CORPUSCULAR HEMOGLOBIN 31 pg (25-35); MEAN CORPUSCULAR HGB CONC 34 g/dL (31-37); MEAN CORPUSCULAR VOLUME 92 fL (79-100); MONO # 0.4 x10^3/uL (0.0-1.1); MONO % 7 % (0-9); NEUT # 2.8 x10^3uL (1.8-7.7); NEUT % 47 % (31-73); PLATELET COUNT 244 x10^3/uL (140-400); RED BLOOD COUNT 4.26 x10^6/uL (3.50-5.40); RED CELL DISTRIBUTION WIDTH 13.4 % (11.5-14.5)
[2019-02-26 06:55] LABS: ALBUMIN 2.8 g/dL (3.4-5.0); ALBUMIN/GLOBULIN RATIO 0.8 (1.0-1.7); ALK PHOS 105 U/L (46-116); ALT (SGPT) 13 U/L (14-59); ANION GAP 7 (6-14); AST (SGOT) 10 U/L (15-37); BLOOD UREA NITROGEN 10 mg/dL (7-20); BUN/CREATININE RATIO 13 (6-20); CARBON DIOXIDE 28 mmol/L (21-32); CHLORIDE 103 mmol/L (98-107); CREATININE 0.8 mg/dL (0.6-1.0); GFR 72.7; GLUCOSE 89 mg/dL (70-99); POTASSIUM 4.3 mmol/L (3.5-5.1); SODIUM 138 mmol/L (136-145); TOTAL BILIRUBIN 0.4 mg/dL (0.2-1.0); TOTAL PROTEIN 6.4 g/dL (6.4-8.2)
[2019-02-26 07:00] LABS: VAL ACID 88 mcg/mL (50-100)
[2019-02-26 16:32] VITALS: BP 149/81
[2019-02-26] MEDS: risperiDONE ORAL 1 MG/ML 30ml BOTTLE. SL SCH (20:35)
[2019-02-26] MEDS: DIVALPROEX ER 500 MG TAB.ER.24H PO SCH (20:35)
--- NOTE | 2019-02-26 21:35 | PDOC ---
Exam Note: Johny Note: Please also refer to the separate dictated note~for this date of service dictated separately.~Patient seen individually. Discussed the patient with Nursing staff reviewed the chart.~Reviewed interim history and current functioning. Reviewed vital signs,~Labs/ Radiology~and current medications noted below. Continue current treatment with the changes noted in the dictated addendum note Assessment: Vital Signs/I&O: Vital Signs Date Time Temp Pulse Resp B/P (MAP) Pulse Ox O2 Delivery O2 Flow Rate FiO2 02/26/19 16:32 97.7 97 19 149/81 (103) 99 Room Air I & O 02/25/19 02/25/19 02/26/19 15:00 23:00 07:00 Intake Total 1080 ml 240 ml Balance 1080 ml 240 ml Labs: Laboratory Tests Test 02/26/19 06:22 White Blood Count 6.0 x10^3/uL (4.0-11.0) Red Blood Count 4.26 x10^6/uL (3.50-5.40) Hemoglobin 13.2 g/dL (12.0-15.5) Hematocrit 39.3 % (36.0-47.0) Mean Corpuscular Volume 92 fL (79-100) Mean Corpuscular Hemoglobin 31 pg (25-35) Mean Corpuscular Hemoglobin Concent 34 g/dL (31-37) Red Cell Distribution Width 13.4 % (11.5-14.5) Platelet Count 244 x10^3/uL (140-400) Neutrophils (%) (Auto) 47 % (31-73) Lymphocytes (%) (Auto) 44 % (24-48) Monocytes (%) (Auto) 7 % (0-9) Eosinophils (%) (Auto) 1 % (0-3) Basophils (%) (Auto) 0 % (0-3) Neutrophils # (Auto) 2.8 x10^3uL (1.8-7.7) Lymphocytes # (Auto) 2.7 x10^3/uL (1.0-4.8) Monocytes # (Auto) 0.4 x10^3/uL (0.0-1.1) Eosinophils # (Auto) 0.1 x10^3/uL (0.0-0.7) Basophils # (Auto) 0.0 x10^3/uL (0.0-0.2) Sodium Level 138 mmol/L (136-145) Potassium Level 4.3 mmol/L (3.5-5.1) Chloride Level 103 mmol/L (98-107) Carbon Dioxide Level 28 mmol/L (21-32) Anion Gap 7 (6-14) Blood Urea Nitrogen 10 mg/dL (7-20) Creatinine 0.8 mg/dL (0.6-1.0) Estimated GFR (Cockcroft-Gault) 72.7 BUN/Creatinine Ratio 13 (6-20) Glucose Level 89 mg/dL (70-99) Calcium Level 9.0 mg/dL (8.5-10.1) Total Bilirubin 0.4 mg/dL (0.2-1.0) Aspartate Amino Transferase (AST) 10 U/L (15-37) L Alanine Aminotransferase (ALT) 13 U/L (14-59) L Alkaline Phosphatase 105 U/L (46-116) Ammonia 22 mcmol/L (11-34) Total Protein 6.4 g/dL (6.4-8.2) Albumin 2.8 g/dL (3.4-5.0) L Albumin/Globulin Ratio 0.8 (1.0-1.7) L Valproic Acid Level 88 mcg/mL (50-100) Valproic Acid Last Dose Date 02/25/2019 Valproic Acid Last Dose Time 2100 Current Medications: I have reviewed the current psychotropics carefully including drug interactions. Risk benefit ratio favors no change other than as noted in my dictated progress note. Diagnosis: Problems: (1) Anxiety disorder (2) Bipolar affective disorder, mixed (3) Bipolar affective, mixed, sev w/ psych (4) Major depressive disorder, recurrent episode (5) Impulse control disorder (6) Mild cognitive impairment (7) Schizoaffective disorder, bipolar type QIANA MARTEL MD Feb 26, 2019 21:35
[2019-02-26] MEDS: VALPROATE ACID 250 MG/5 ML ORAL SOLUTION PO SCH (22:54)
[2019-02-27 05:40] VITALS: BP 103/66
[2019-02-27 16:24] VITALS: BP 119/74
[2019-02-27] MEDS: VALPROATE ACID 250 MG/5 ML ORAL SOLUTION PO SCH (19:32)
[2019-02-27] MEDS: risperiDONE ORAL 1 MG/ML 30ml BOTTLE. SL SCH (19:36)
--- NOTE | 2019-02-27 21:38 | PDOC ---
Exam Note: Johny Note: Please also refer to the separate dictated note~for this date of service dictated separately.~Patient seen individually. Discussed the patient with Nursing staff reviewed the chart.~Reviewed interim history and current functioning. Reviewed vital signs,~Labs/ Radiology~and current medications noted below. Continue current treatment with the changes noted in the dictated addendum note Assessment: Vital Signs/I&O: Vital Signs Date Time Temp Pulse Resp B/P (MAP) Pulse Ox O2 Delivery O2 Flow Rate FiO2 02/27/19 16:24 99.1 96 18 119/74 (89) 96 02/26/19 16:32 Room Air I & O 02/26/19 02/26/19 02/27/19 15:00 23:00 07:00 Intake Total 480 ml 240 ml 100 ml Balance 480 ml 240 ml 100 ml Current Medications: I have reviewed the current psychotropics carefully including drug interactions. Risk benefit ratio favors no change other than as noted in my dictated progress note. Diagnosis: Problems: (1) Anxiety disorder (2) Bipolar affective disorder, mixed (3) Bipolar affective, mixed, sev w/ psych (4) Major depressive disorder, recurrent episode (5) Impulse control disorder (6) Mild cognitive impairment (7) Schizoaffective disorder, bipolar type QIANA MARTEL MD Feb 27, 2019 21:38
--- NOTE | 2019-02-27 23:09 | PN ---
DATE: 02/26/2019 PROGRESS NOTE This late entry 02/26/2019 covers elements, not covered in my initial note. SUBJECTIVE: I met with the patient evening of 02/26/2019. Staffed at a treatment team meeting with the entire team in the morning. Had appetite 50-75%, sleeping about 8 hours, withdrawn, spends much time in her room. Social service staff is looking for level 2 placement. Per social service staffed at treatment team meeting they shared that patient's parents have moved to [place], patient is unaware of this. Valproic acid level is 88 therapeutic. Sister is her guardian. REVIEW OF SYSTEMS: No CV, , pulmonary, eye, ENT system symptoms on review. Reliability varies. MENTAL STATUS EXAM: Oriented to herself and situation. Speech has some latency, coherent, often responses monosyllabic. Abstraction fair, computation impaired, language function intact, attention span short. Mood and affect withdrawn, but less psychotic. LABORATORY DATA: Reviewed. IMPRESSION: Unchanged from initial note. PLAN: No change from initial note. Valproic acid level therapeutic at 88. Continue Depakote at current dosage, Risperdal Consta was last received on 02/20/2019, 25 mg IM. We will continue every 2 weeks. Rest unchanged and the daily Haldol IM, Ativan IM have been discontinued. QIANA MARTEL MD DR: KOSTA/kuldip JOB#: [id number] / [id number]
--- NOTE | 2019-02-28 01:33 | PN ---
DATE: 02/25/2019 PSYCHIATRIC PROGRESS NOTE This late entry 02/25/2019 covers elements not covered in my initial note. SUBJECTIVE: I met with the patient evening of 02/25/2019. The patient slept 8 hours previous night, somewhat withdrawn, comes out for meals, otherwise back in her room, verbal responses monosyllabic. REVIEW OF SYSTEMS: No CV, , pulmonary, eye, ENT system symptoms on review. MENTAL STATUS EXAM: Oriented to herself and situation. Speech has some latency, often responses monosyllabic. Abstraction fair, computation impaired. Language function intact. No suicidal or homicidal ideation. Appears less psychotic. LABORATORY DATA: Reviewed. IMPRESSION: Unchanged from initial note. PLAN: Valproic acid level subtherapeutic at 33 and is being adjusted. She has difficulty taking the Depakote ER 1000 mg at bedtime due to the size of the capsule, we will change to Depakote 500 mg twice a day after the next lab draw and then adjust to re-therapeutic level. Rest unchanged for now. QIANA MARTEL MD DR: KOSTA/kuldip JOB#: [id number] / [id number]
[2019-02-28 06:14] VITALS: BP 105/69
[2019-02-28 16:03] VITALS: BP 123/75
[2019-02-28] MEDS: risperiDONE ORAL 1 MG/ML 30ml BOTTLE. SL SCH (20:54)
[2019-02-28] MEDS: VALPROATE ACID 250 MG/5 ML ORAL SOLUTION PO SCH (20:54)
--- NOTE | 2019-02-28 22:55 | PDOC ---
Exam Note: Johny Note: Please also refer to the separate dictated note~for this date of service dictated separately.~Patient seen individually. Discussed the patient with Nursing staff reviewed the chart.~Reviewed interim history and current functioning. Reviewed vital signs,~Labs/ Radiology~and current medications noted below. Continue current treatment with the changes noted in the dictated addendum note Assessment: Vital Signs/I&O: Vital Signs Date Time Temp Pulse Resp B/P (MAP) Pulse Ox O2 Delivery O2 Flow Rate FiO2 02/28/19 16:03 97.9 96 16 123/75 (91) 99 02/26/19 16:32 Room Air I & O 02/27/19 02/27/19 02/28/19 15:00 23:00 07:00 Intake Total 600 ml 240 ml Balance 600 ml 240 ml Current Medications: I have reviewed the current psychotropics carefully including drug interactions. Risk benefit ratio favors no change other than as noted in my dictated progress note. Diagnosis: Problems: (1) Anxiety disorder (2) Bipolar affective disorder, mixed (3) Bipolar affective, mixed, sev w/ psych (4) Major depressive disorder, recurrent episode (5) Impulse control disorder (6) Mild cognitive impairment (7) Schizoaffective disorder, bipolar type QIANA MARTEL MD Feb 28, 2019 22:54
[2019-03-01 05:58] VITALS: BP 126/77
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
[2019-03-01 15:50] VITALS: BP 133/79
[2019-03-01] MEDS: VALPROATE ACID 250 MG/5 ML ORAL SOLUTION PO SCH (19:55)
[2019-03-01] MEDS: risperiDONE ORAL 1 MG/ML 30ml BOTTLE. SL SCH (20:01)
--- NOTE | 2019-03-01 21:31 | PDOC ---
Exam Note: Johny Note: Please also refer to the separate dictated note~for this date of service dictated separately.~Patient seen individually. Discussed the patient with Nursing staff reviewed the chart.~Reviewed interim history and current functioning. Reviewed vital signs,~Labs/ Radiology~and current medications noted below. Continue current treatment with the changes noted in the dictated addendum note Assessment: Vital Signs/I&O: Vital Signs Date Time Temp Pulse Resp B/P (MAP) Pulse Ox O2 Delivery O2 Flow Rate FiO2 03/01/19 15:50 98.1 109 20 133/79 (97) 97 Room Air I & O 02/28/19 02/28/19 03/01/19 15:00 23:00 07:00 Intake Total 720 ml 240 ml 120 ml Balance 720 ml 240 ml 120 ml Current Medications: I have reviewed the current psychotropics carefully including drug interactions. Risk benefit ratio favors no change other than as noted in my dictated progress note. Diagnosis: Problems: (1) Anxiety disorder (2) Bipolar affective disorder, mixed (3) Bipolar affective, mixed, sev w/ psych (4) Major depressive disorder, recurrent episode (5) Impulse control disorder (6) Mild cognitive impairment (7) Schizoaffective disorder, bipolar type QIANA MARTEL MD Mar 01, 2019 21:31
--- NOTE | 2019-03-02 00:01 | PN ---
DATE: 02/28/2019 This late entry 02/28/2019 covers the elements not covered in my initial note. SUBJECTIVE: I met with the patient evening of 02/28/2019. The patient slept 8-1/2 hours previous night. She is withdrawn, spends much time in her room, but compliant with medications, less paranoid. REVIEW OF SYSTEMS: No CV, , pulmonary, eye system symptoms on review. MENTAL STATUS EXAM: Reasonably oriented. Speech has some latency, coherent. Abstraction fair, computation impaired, language function intact, attention span short. Mood and affect somewhat withdrawn. LABORATORY DATA: Reviewed. IMPRESSION: Unchanged from initial note. PLAN: No change from initial note. MAN Suri MARTEL MD DR: KOSTA/kuldip JOB#: [id number] / [id number]
--- NOTE | 2019-03-02 00:10 | PN ---
DATE: 02/27/2019 PROGRESS NOTE This late entry 02/27/2019 covers elements not covered in my initial note. SUBJECTIVE: I met with the patient evening of 02/27/2019. The patient slept 5-1/4 hours previous night. She remains isolative in her room, does yoga, though it is unclear whether this is part of her psychosis, but otherwise she has been doing better. I met with her in her room. REVIEW OF SYSTEMS: No CV, , pulmonary, eye, ENT system symptoms on review. MENTAL STATUS EXAM: Oriented reasonably. Speech has some latency, coherent. Abstraction fair, computation impaired, language function intact, attention span short. Mood and affect somewhat withdrawn, less depressed. LABORATORY DATA: Reviewed. IMPRESSION: Unchanged from initial note. PLAN: No change from initial note. MAN Suri MARTEL MD DR: KOSTA/kuldip JOB#: [id number] / [id number]
[2019-03-02 05:56] VITALS: BP 109/72
[2019-03-02] MEDS: CHOLECALCIFEROL (VITAMIN D3) 50,000 UNIT CAPSULE PO SCH (10:48)
[2019-03-02 16:03] VITALS: BP 127/77
[2019-03-02] MEDS: risperiDONE ORAL 1 MG/ML 30ml BOTTLE. SL SCH (20:28)
[2019-03-02] MEDS: VALPROATE ACID 250 MG/5 ML ORAL SOLUTION PO SCH (20:29)
--- NOTE | 2019-03-02 21:36 | PDOC ---
Exam Note: Johny Note: Please also refer to the separate dictated note~for this date of service dictated separately.~Patient seen individually. Discussed the patient with Nursing staff reviewed the chart.~Reviewed interim history and current functioning. Reviewed vital signs,~Labs/ Radiology~and current medications noted below. Continue current treatment with the changes noted in the dictated addendum note Assessment: Vital Signs/I&O: Vital Signs Date Time Temp Pulse Resp B/P (MAP) Pulse Ox O2 Delivery O2 Flow Rate FiO2 03/02/19 16:03 97.8 108 18 127/77 (94) 97 03/01/19 15:50 Room Air I & O 03/01/19 03/01/19 03/02/19 14:59 22:59 06:59 Intake Total 1080 ml 360 ml Balance 1080 ml 360 ml Current Medications: I have reviewed the current psychotropics carefully including drug interactions. Risk benefit ratio favors no change other than as noted in my dictated progress note. Diagnosis: Problems: (1) Anxiety disorder (2) Bipolar affective disorder, mixed (3) Bipolar affective, mixed, sev w/ psych (4) Major depressive disorder, recurrent episode (5) Impulse control disorder (6) Mild cognitive impairment (7) Schizoaffective disorder, bipolar type QIANA MARTEL MD Mar 02, 2019 21:36
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
[2019-03-03 05:55] VITALS: BP 128/74
[2019-03-03 15:41] VITALS: BP 121/79
[2019-03-03] MEDS: VALPROATE ACID 250 MG/5 ML ORAL SOLUTION PO SCH (20:58)
[2019-03-03] MEDS: risperiDONE ORAL 1 MG/ML 30ml BOTTLE. SL SCH (20:59)
--- NOTE | 2019-03-03 21:47 | PDOC ---
Exam Note: Johny Note: Please also refer to the separate dictated note~for this date of service dictated separately.~Patient seen individually. Discussed the patient with Nursing staff reviewed the chart.~Reviewed interim history and current functioning. Reviewed vital signs,~Labs/ Radiology~and current medications noted below. Continue current treatment with the changes noted in the dictated addendum note Assessment: Vital Signs/I&O: Vital Signs Date Time Temp Pulse Resp B/P (MAP) Pulse Ox O2 Delivery O2 Flow Rate FiO2 03/03/19 15:41 97.7 88 20 121/79 (93) 99 Room Air I & O 03/02/19 03/02/19 03/03/19 14:59 22:59 06:59 Intake Total 480 ml 600 ml Balance 480 ml 600 ml Current Medications: I have reviewed the current psychotropics carefully including drug interactions. Risk benefit ratio favors no change other than as noted in my dictated progress note. Diagnosis: Problems: (1) Anxiety disorder (2) Bipolar affective disorder, mixed (3) Bipolar affective, mixed, sev w/ psych (4) Major depressive disorder, recurrent episode (5) Impulse control disorder (6) Mild cognitive impairment (7) Schizoaffective disorder, bipolar type QIANA MARTEL MD Mar 03, 2019 21:47
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
[2019-03-04 06:03] VITALS: BP 99/60
[2019-03-04 16:20] VITALS: BP 113/67
[2019-03-04] MEDS: risperiDONE ORAL 1 MG/ML 30ml BOTTLE. SL SCH (20:14)
[2019-03-04] MEDS: VALPROATE ACID 250 MG/5 ML ORAL SOLUTION PO SCH (20:14)
--- NOTE | 2019-03-04 21:40 | PDOC ---
Exam Note: Johny Note: Please also refer to the separate dictated note~for this date of service dictated separately.~Patient seen individually. Discussed the patient with Nursing staff reviewed the chart.~Reviewed interim history and current functioning. Reviewed vital signs,~Labs/ Radiology~and current medications noted below. Continue current treatment with the changes noted in the dictated addendum note Assessment: Vital Signs/I&O: Vital Signs Date Time Temp Pulse Resp B/P (MAP) Pulse Ox O2 Delivery O2 Flow Rate FiO2 03/04/19 16:20 98.0 105 16 113/67 (82) 97 03/04/19 06:03 Room Air I & O 03/03/19 03/03/19 03/04/19 14:59 22:59 06:59 Intake Total 840 ml 480 ml Balance 840 ml 480 ml Current Medications: I have reviewed the current psychotropics carefully including drug interactions. Risk benefit ratio favors no change other than as noted in my dictated progress note. Diagnosis: Problems: (1) Anxiety disorder (2) Bipolar affective disorder, mixed (3) Bipolar affective, mixed, sev w/ psych (4) Major depressive disorder, recurrent episode (5) Impulse control disorder (6) Mild cognitive impairment (7) Schizoaffective disorder, bipolar type QIANA MARTEL MD Mar 04, 2019 21:40
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
[2019-03-05 06:29] VITALS: BP 100/63
[2019-03-05 16:24] VITALS: BP 122/83
[2019-03-05] MEDS: VALPROATE ACID 250 MG/5 ML ORAL SOLUTION PO SCH ×2 (19:15→21:49)
[2019-03-05] MEDS: risperiDONE ORAL 1 MG/ML 30ml BOTTLE. SL SCH (21:00)
--- NOTE | 2019-03-05 21:46 | PDOC ---
Exam Note: Johny Note: Please also refer to the separate dictated note~for this date of service dictated separately.~Patient seen individually. Discussed the patient with Nursing staff reviewed the chart.~Reviewed interim history and current functioning. Reviewed vital signs,~Labs/ Radiology~and current medications noted below. Continue current treatment with the changes noted in the dictated addendum note Assessment: Vital Signs/I&O: Vital Signs Date Time Temp Pulse Resp B/P (MAP) Pulse Ox O2 Delivery O2 Flow Rate FiO2 03/05/19 16:24 98.6 87 16 122/83 (96) 98 Room Air I & O 03/04/19 03/04/19 03/05/19 14:59 22:59 06:59 Intake Total 840 ml 360 ml 200 ml Balance 840 ml 360 ml 200 ml Current Medications: I have reviewed the current psychotropics carefully including drug interactions. Risk benefit ratio favors no change other than as noted in my dictated progress note. Diagnosis: Problems: (1) Anxiety disorder (2) Bipolar affective disorder, mixed (3) Bipolar affective, mixed, sev w/ psych (4) Major depressive disorder, recurrent episode (5) Impulse control disorder (6) Mild cognitive impairment (7) Schizoaffective disorder, bipolar type QIANA MARTEL MD Mar 05, 2019 21:46
[2019-03-06 06:08] VITALS: BP 120/73
[2019-03-06 06:21] LABS: BASO % 0 % (0-3); EOS # 0.1 x10^3/uL (0.0-0.7); EOS % 1 % (0-3); HEMATOCRIT 39.3 % (36.0-47.0); LYMPH # 3.1 x10^3/uL (1.0-4.8); LYMPH % 48 % (24-48); MEAN CORPUSCULAR HEMOGLOBIN 31 pg (25-35); MEAN CORPUSCULAR HGB CONC 33 g/dL (31-37); MEAN CORPUSCULAR VOLUME 93 fL (79-100); MONO # 0.5 x10^3/uL (0.0-1.1); MONO % 7 % (0-9); NEUT # 2.9 x10^3uL (1.8-7.7); NEUT % 44 % (31-73); PLATELET COUNT 205 x10^3/uL (140-400); RED BLOOD COUNT 4.22 x10^6/uL (3.50-5.40); RED CELL DISTRIBUTION WIDTH 13.1 % (11.5-14.5); WHITE BLOOD COUNT 6.6 x10^3/uL (4.0-11.0)
[2019-03-06 06:25] LABS: ALBUMIN 2.7 g/dL (3.4-5.0); ALBUMIN/GLOBULIN RATIO 0.8 (1.0-1.7); CALCIUM 8.8 mg/dL (8.5-10.1); CREATININE 0.7 mg/dL (0.6-1.0); GFR 84.8; POTASSIUM 4.4 mmol/L (3.5-5.1); TOTAL BILIRUBIN 0.2 mg/dL (0.2-1.0)
[2019-03-06] MEDS: risperiDONE MICROSPHERES 25 MG/2 ML DISP.SYRIN. IM SCH (10:08)
[2019-03-06 16:39] VITALS: BP 136/81
[2019-03-06] MEDS: VALPROATE ACID 250 MG/5 ML ORAL SOLUTION PO SCH (19:24)
[2019-03-06] MEDS: risperiDONE ORAL 1 MG/ML 30ml BOTTLE. SL SCH (19:24)
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
--- NOTE | 2019-03-06 20:29 | PN ---
DATE: 03/05/2019 PSYCHIATRIC PROGRESS NOTE This late entry 03/05/2019 covers elements not covered in my initial note. SUBJECTIVE: I met with the patient evening of 03/05/2019 at length and staffed at a treatment team meeting with the entire team in the morning. The patient's sister, Qian, attended the conference. We had a lengthy discussion about the events on the unit. Patient's psychotropics, her compliance being in line of sight. Sister had questions on potential side effects from her psychotropics. We discussed extrapyramidal symptoms, possible tardive dyskinesia on antipsychotics and hepatic side effects on the Depakote. She slept 8 hours previous night. She has been coming out more. Less paranoid. REVIEW OF SYSTEMS: No CV, , pulmonary, eye, ENT system symptoms on review. Reliability fair. MENTAL STATUS EXAM: Oriented reasonably. Speech is coherent, has some latency. Abstraction fair, computation impaired, language function intact, attention span short. Mood and affect is improved. She was more verbal, interactive, always refers to me by my name correctly. LABORATORY DATA: Reviewed. IMPRESSION: Bipolar disorder, mixed with psychotic features, in partial remission. Rest unchanged. PLAN: Continue psychotropics from initial note. QIANA MARTEL MD DR: KOSTA/kuldip JOB#: [id number] / [id number]
--- NOTE | 2019-03-06 21:49 | PDOC ---
Exam Note: Johny Note: Please also refer to the separate dictated note~for this date of service dictated separately.~Patient seen individually. Discussed the patient with Nursing staff reviewed the chart.~Reviewed interim history and current functioning. Reviewed vital signs,~Labs/ Radiology~and current medications noted below. Continue current treatment with the changes noted in the dictated addendum note Assessment: Vital Signs/I&O: Vital Signs Date Time Temp Pulse Resp B/P (MAP) Pulse Ox O2 Delivery O2 Flow Rate FiO2 03/06/19 16:39 98.4 78 22 136/81 (99) 98 Room Air I & O 03/05/19 03/05/19 03/06/19 15:00 23:00 07:00 Intake Total 600 ml 240 ml Balance 600 ml 240 ml Labs: Laboratory Tests Test 03/06/19 05:59 White Blood Count 6.6 x10^3/uL (4.0-11.0) Red Blood Count 4.22 x10^6/uL (3.50-5.40) Hemoglobin 13.0 g/dL (12.0-15.5) Hematocrit 39.3 % (36.0-47.0) Mean Corpuscular Volume 93 fL (79-100) Mean Corpuscular Hemoglobin 31 pg (25-35) Mean Corpuscular Hemoglobin Concent 33 g/dL (31-37) Red Cell Distribution Width 13.1 % (11.5-14.5) Platelet Count 205 x10^3/uL (140-400) Neutrophils (%) (Auto) 44 % (31-73) Lymphocytes (%) (Auto) 48 % (24-48) Monocytes (%) (Auto) 7 % (0-9) Eosinophils (%) (Auto) 1 % (0-3) Basophils (%) (Auto) 0 % (0-3) Neutrophils # (Auto) 2.9 x10^3uL (1.8-7.7) Lymphocytes # (Auto) 3.1 x10^3/uL (1.0-4.8) Monocytes # (Auto) 0.5 x10^3/uL (0.0-1.1) Eosinophils # (Auto) 0.1 x10^3/uL (0.0-0.7) Basophils # (Auto) 0.0 x10^3/uL (0.0-0.2) Sodium Level 138 mmol/L (136-145) Potassium Level 4.4 mmol/L (3.5-5.1) Chloride Level 106 mmol/L (98-107) Carbon Dioxide Level 28 mmol/L (21-32) Anion Gap 4 (6-14) L Blood Urea Nitrogen 10 mg/dL (7-20) Creatinine 0.7 mg/dL (0.6-1.0) Estimated GFR (Cockcroft-Gault) 84.8 BUN/Creatinine Ratio 14 (6-20) Glucose Level 89 mg/dL (70-99) Calcium Level 8.8 mg/dL (8.5-10.1) Total Bilirubin 0.2 mg/dL (0.2-1.0) Aspartate Amino Transferase (AST) 7 U/L (15-37) L Alanine Aminotransferase (ALT) 12 U/L (14-59) L Alkaline Phosphatase 87 U/L (46-116) Total Protein 6.0 g/dL (6.4-8.2) L Albumin 2.7 g/dL (3.4-5.0) L Albumin/Globulin Ratio 0.8 (1.0-1.7) L Current Medications: I have reviewed the current psychotropics carefully including drug interactions. Risk benefit ratio favors no change other than as noted in my dictated progress note. Diagnosis: Problems: (1) Anxiety disorder (2) Bipolar affective disorder, mixed (3) Bipolar affective, mixed, sev w/ psych (4) Major depressive disorder, recurrent episode (5) Impulse control disorder (6) Mild cognitive impairment (7) Schizoaffective disorder, bipolar type QIANA MARTEL MD Mar 06, 2019 21:49
[2019-03-07 05:45] VITALS: BP 116/67
[2019-03-07 15:41] VITALS: BP 121/73
[2019-03-07] MEDS: risperiDONE ORAL 1 MG/ML 30ml BOTTLE. SL SCH (19:28)
[2019-03-07] MEDS: VALPROATE ACID 250 MG/5 ML ORAL SOLUTION PO SCH (19:29)
--- NOTE | 2019-03-07 22:45 | PDOC ---
Exam Note: Johny Note: Please also refer to the separate dictated note~for this date of service dictated separately.~Patient seen individually. Discussed the patient with Nursing staff reviewed the chart.~Reviewed interim history and current functioning. Reviewed vital signs,~Labs/ Radiology~and current medications noted below. Continue current treatment with the changes noted in the dictated addendum note Assessment: Vital Signs/I&O: Vital Signs Date Time Temp Pulse Resp B/P (MAP) Pulse Ox O2 Delivery O2 Flow Rate FiO2 03/07/19 15:41 97.4 86 18 121/73 (89) 98 03/06/19 16:39 Room Air I & O 03/06/19 03/06/19 03/07/19 15:00 23:00 07:00 Intake Total 720 ml 600 ml Balance 720 ml 600 ml Current Medications: I have reviewed the current psychotropics carefully including drug interactions. Risk benefit ratio favors no change other than as noted in my dictated progress note. Diagnosis: Problems: (1) Anxiety disorder (2) Bipolar affective disorder, mixed (3) Bipolar affective, mixed, sev w/ psych (4) Major depressive disorder, recurrent episode (5) Impulse control disorder (6) Mild cognitive impairment (7) Schizoaffective disorder, bipolar type QIANA MARTEL MD Mar 07, 2019 22:45
[2019-03-08 06:01] VITALS: BP 104/64
[2019-03-08 15:45] VITALS: BP 90/56
[2019-03-08] MEDS: VALPROATE ACID 250 MG/5 ML ORAL SOLUTION PO SCH (18:55)
[2019-03-08] MEDS: risperiDONE ORAL 1 MG/ML 30ml BOTTLE. SL SCH (18:55)
--- NOTE | 2019-03-08 21:00 | PDOC ---
Exam Note: Johny Note: Please also refer to the separate dictated note~for this date of service dictated separately.~Patient seen individually. Discussed the patient with Nursing staff reviewed the chart.~Reviewed interim history and current functioning. Reviewed vital signs,~Labs/ Radiology~and current medications noted below. Continue current treatment with the changes noted in the dictated addendum note Assessment: Vital Signs/I&O: Vital Signs Date Time Temp Pulse Resp B/P (MAP) Pulse Ox O2 Delivery O2 Flow Rate FiO2 03/08/19 15:45 97.3 82 16 90/56 (67) 99 03/06/19 16:39 Room Air I & O 03/07/19 03/07/19 03/08/19 15:00 23:00 07:00 Intake Total 360 ml 240 ml 120 ml Balance 360 ml 240 ml 120 ml Current Medications: I have reviewed the current psychotropics carefully including drug interactions. Risk benefit ratio favors no change other than as noted in my dictated progress note. Diagnosis: Problems: (1) Schizoaffective disorder, bipolar type (2) Mild cognitive impairment (3) Impulse control disorder (4) Major depressive disorder, recurrent episode (5) Bipolar affective, mixed, sev w/ psych (6) Anxiety disorder QIANA MARTEL MD Mar 08, 2019 21:00
--- NOTE | 2019-03-09 00:58 | PN ---
DATE: 03/06/2019 PSYCHIATRIC PROGRESS NOTE This late entry, 03/06/2019, covers elements not covered in my initial note. SUBJECTIVE: I met with the patient in the evening of 03/06/2019. She slept 6-1/2 hours previous night. She is more appropriate, laughing more interactive, less paranoid. Compliant with her psychotropics. Valproic acid level is therapeutic at 88. REVIEW OF SYSTEMS: No CV, , pulmonary, eye system symptoms on review. MENTAL STATUS EXAM: Reasonably oriented. Speech is coherent, abstraction fair, computation impaired, language function intact, attention span short. Mood and affect somewhat withdrawn, but improved. LABORATORY DATA: Reviewed. IMPRESSION: Unchanged from initial note. PLAN: No change from initial note. MAN Suri MARTEL MD DR: KOSTA/kuldip JOB#: [id number] / [id number]
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
[2019-03-09 05:45] VITALS: BP 111/68
[2019-03-09] MEDS: CHOLECALCIFEROL (VITAMIN D3) 50,000 UNIT CAPSULE PO SCH (07:48)
[2019-03-09 16:33] VITALS: BP 109/71
--- NOTE | 2019-03-09 19:20 | PDOC ---
Exam Note: Johny Note: Please also refer to the separate dictated note~for this date of service dictated separately.~Patient seen individually. Discussed the patient with Nursing staff reviewed the chart.~Reviewed interim history and current functioning. Reviewed vital signs,~Labs/ Radiology~and current medications noted below. Continue current treatment with the changes noted in the dictated addendum note Assessment: Vital Signs/I&O: Vital Signs Date Time Temp Pulse Resp B/P (MAP) Pulse Ox O2 Delivery O2 Flow Rate FiO2 03/09/19 16:33 98.3 84 20 109/71 (84) 98 03/06/19 16:39 Room Air I & O 03/08/19 03/08/19 03/09/19 15:00 23:00 07:00 Intake Total 720 ml 240 ml 240 ml Balance 720 ml 240 ml 240 ml Current Medications: I have reviewed the current psychotropics carefully including drug interactions. Risk benefit ratio favors no change other than as noted in my dictated progress note. Diagnosis: Problems: (1) Schizoaffective disorder, bipolar type (2) Mild cognitive impairment (3) Impulse control disorder (4) Major depressive disorder, recurrent episode (5) Bipolar affective, mixed, sev w/ psych (6) Bipolar affective disorder, mixed (7) Anxiety disorder QIANA MARTEL MD Mar 09, 2019 19:20
[2019-03-09] MEDS: VALPROATE ACID 250 MG/5 ML ORAL SOLUTION PO SCH (20:28)
[2019-03-09] MEDS: risperiDONE ORAL 1 MG/ML 30ml BOTTLE. SL SCH (20:28)
[2019-03-10 05:39] VITALS: BP 113/68
--- NOTE | 2019-03-10 18:47 | PDOC ---
Exam Note: Johny Note: Please also refer to the separate dictated note~for this date of service dictated separately.~Patient seen individually. Discussed the patient with Nursing staff reviewed the chart.~Reviewed interim history and current functioning. Reviewed vital signs,~Labs/ Radiology~and current medications noted below. Continue current treatment with the changes noted in the dictated addendum note Assessment: Vital Signs/I&O: Vital Signs Date Time Temp Pulse Resp B/P (MAP) Pulse Ox O2 Delivery O2 Flow Rate FiO2 03/10/19 05:39 97.3 79 16 113/68 (83) 98 Room Air I & O 03/09/19 03/09/19 03/10/19 15:00 23:00 07:00 Intake Total 960 ml 360 ml Balance 960 ml 360 ml Current Medications: I have reviewed the current psychotropics carefully including drug interactions. Risk benefit ratio favors no change other than as noted in my dictated progress note. Diagnosis: Problems: (1) Schizoaffective disorder, bipolar type (2) Mild cognitive impairment (3) Impulse control disorder (4) Major depressive disorder, recurrent episode (5) Bipolar affective, mixed, sev w/ psych (6) Bipolar affective disorder, mixed (7) Anxiety disorder QIANA MARTEL MD Mar 10, 2019 18:47
[2019-03-10] MEDS: VALPROATE ACID 250 MG/5 ML ORAL SOLUTION PO SCH (20:11)
[2019-03-10] MEDS: risperiDONE ORAL 1 MG/ML 30ml BOTTLE. SL SCH (20:13)
[2019-03-10 23:14] VITALS: BP 113/66
--- NOTE | 2019-03-10 23:28 | PN ---
DATE: 03/08/2019 PSYCHIATRIC PROGRESS NOTE This late entry 03/08/2019 covers elements not covered in my initial note. SUBJECTIVE: I met with the patient evening of 03/08/2019. She has been coming out more to the common areas, slept 8 hours previous night. Per nursing report, doing better. REVIEW OF SYSTEMS: No CV, , pulmonary, eye, ENT system symptoms on review. MENTAL STATUS EXAM: Oriented reasonably. Speech is coherent, abstraction fair, computation impaired, language function intact, attention span short. Mood and affect is improved. LABORATORY DATA: Reviewed. IMPRESSION: Unchanged from initial note. PLAN: No change from initial note. MAN Suri MARTEL MD DR: KOSTA/kuldip JOB#: [id number] / [id number]
--- NOTE | 2019-03-10 23:41 | PN ---
DATE: 03/09/2019 PSYCHIATRIC PROGRESS NOTE This late entry 03/09/2019 covers elements not covered in my initial note. SUBJECTIVE: I met with the patient evening of 03/09/2019. The patient slept 7-1/4 hours previous night. Early in the morning, she was somewhat loud with nursing staff, stating she had no medical problems, but later in the day, she was very appropriate and interactive. REVIEW OF SYSTEMS: No CV, , pulmonary, eye system symptoms on review. Does complain of being a little cold and bears an extra cover on her. MENTAL STATUS EXAMINATION: Oriented reasonably. Speech is coherent, abstraction fair, computation impaired, language function intact, attention span short. Mood and affect was improved. LABORATORY DATA: Reviewed. IMPRESSION: Unchanged from initial note. PLAN: No change from initial note. MAN Suri MARTEL MD DR: KOSTA/kuldip JOB#: [id number] / [id number]
[2019-03-11 05:46] VITALS: BP 112/70
[2019-03-11 16:19] VITALS: BP 103/67
[2019-03-11] MEDS: VALPROATE ACID 250 MG/5 ML ORAL SOLUTION PO SCH (19:33)
[2019-03-11] MEDS: risperiDONE ORAL 1 MG/ML 30ml BOTTLE. SL SCH (19:34)
--- NOTE | 2019-03-11 21:52 | PDOC ---
Exam Note: Johny Note: Please also refer to the separate dictated note~for this date of service dictated separately.~Patient seen individually. Discussed the patient with Nursing staff reviewed the chart.~Reviewed interim history and current functioning. Reviewed vital signs,~Labs/ Radiology~and current medications noted below. Continue current treatment with the changes noted in the dictated addendum note Assessment: Vital Signs/I&O: Vital Signs Date Time Temp Pulse Resp B/P (MAP) Pulse Ox O2 Delivery O2 Flow Rate FiO2 03/11/19 16:19 97.5 82 16 103/67 (79) 97 03/10/19 05:39 Room Air I & O 03/10/19 03/10/19 03/11/19 15:00 23:00 07:00 Intake Total 960 ml 600 ml 200 ml Balance 960 ml 600 ml 200 ml Current Medications: I have reviewed the current psychotropics carefully including drug interactions. Risk benefit ratio favors no change other than as noted in my dictated progress note. Diagnosis: Problems: (1) Anxiety disorder (2) Bipolar affective disorder, mixed (3) Bipolar affective, mixed, sev w/ psych (4) Major depressive disorder, recurrent episode (5) Impulse control disorder (6) Mild cognitive impairment (7) Schizoaffective disorder, bipolar type QIANA MARTEL MD Mar 11, 2019 21:52
--- NOTE | 2019-03-12 02:35 | PN ---
DATE: 03/10/2019 PSYCHIATRIC PROGRESS NOTE This late entry 03/10/2019 covers the elements not covered in my initial note. SUBJECTIVE: I met with the patient in the evening of 03/10/2019. The patient slept 7-3/4 hours previous night. She has been coming out more to the group area, which is an improvement. She is more interactive verbally as I met with her individually. REVIEW OF SYSTEMS: No CV, , pulmonary, eye, ENT system symptoms on review. Reliability fair. MENTAL STATUS EXAM: Oriented to herself and situation. Speech has some latency, coherent. Abstraction fair, computation impaired, language function intact, and attention span short. Mood and affect somewhat withdrawn. LABORATORY DATA: Reviewed. IMPRESSION: Unchanged from initial note. PLAN: No change from initial note. MAN Suri MARTEL MD DR: KOSTA/kuldip JOB#: [id number] / [id number]
[2019-03-12 06:37] VITALS: BP 108/50
[2019-03-12 07:45] VITALS: BP 120/62
[2019-03-12 15:55] VITALS: BP 100/67
[2019-03-12] MEDS: risperiDONE ORAL 1 MG/ML 30ml BOTTLE. SL SCH (19:21)
[2019-03-12] MEDS: VALPROATE ACID 250 MG/5 ML ORAL SOLUTION PO SCH (19:22)
--- NOTE | 2019-03-12 21:07 | PDOC ---
Exam Note: Johny Note: Please also refer to the separate dictated note~for this date of service dictated separately.~Patient seen individually. Discussed the patient with Nursing staff reviewed the chart.~Reviewed interim history and current functioning. Reviewed vital signs,~Labs/ Radiology~and current medications noted below. Continue current treatment with the changes noted in the dictated addendum note Assessment: Vital Signs/I&O: Vital Signs Date Time Temp Pulse Resp B/P (MAP) Pulse Ox O2 Delivery O2 Flow Rate FiO2 03/12/19 15:55 97.4 89 18 100/67 (78) 96 03/12/19 07:45 Room Air I & O 03/11/19 03/11/19 03/12/19 14:59 22:59 06:59 Intake Total 840 ml 240 ml Balance 840 ml 240 ml Current Medications: Meds: Current Medications Medications (Trade) Dose Ordered Sig/Victorino Route PRN Reason Start Time Stop Time Status Last Admin Dose Admin Risperidone (RisperDAL) 1.75 mg QHS SL 03/12/19 21:00 03/12/19 19:22 I have reviewed the current psychotropics carefully including drug interactions. Risk benefit ratio favors no change other than as noted in my dictated progress note. Diagnosis: Problems: (1) Anxiety disorder (2) Bipolar affective disorder, mixed (3) Bipolar affective, mixed, sev w/ psych (4) Major depressive disorder, recurrent episode (5) Impulse control disorder (6) Mild cognitive impairment (7) Schizoaffective disorder, bipolar type QIANA MARTEL MD Mar 12, 2019 21:07
[2019-03-13 06:28] VITALS: BP 106/69
[2019-03-13 15:49] VITALS: BP 112/72
[2019-03-13] MEDS: VALPROATE ACID 250 MG/5 ML ORAL SOLUTION PO SCH (19:44)
[2019-03-13] MEDS: risperiDONE ORAL 1 MG/ML 30ml BOTTLE. SL SCH (19:44)
--- NOTE | 2019-03-13 22:00 | PDOC ---
Exam Note: Johny Note: Please also refer to the separate dictated note~for this date of service dictated separately.~Patient seen individually. Discussed the patient with Nursing staff reviewed the chart.~Reviewed interim history and current functioning. Reviewed vital signs,~Labs/ Radiology~and current medications noted below. Continue current treatment with the changes noted in the dictated addendum note Assessment: Vital Signs/I&O: Vital Signs Date Time Temp Pulse Resp B/P (MAP) Pulse Ox O2 Delivery O2 Flow Rate FiO2 03/13/19 15:49 97.4 80 20 112/72 (85) 97 03/13/19 06:28 Room Air I & O 03/12/19 03/12/19 03/13/19 14:59 22:59 06:59 Intake Total 720 ml 480 ml 120 ml Balance 720 ml 480 ml 120 ml Current Medications: I have reviewed the current psychotropics carefully including drug interactions. Risk benefit ratio favors no change other than as noted in my dictated progress note. Diagnosis: Problems: (1) Anxiety disorder (2) Bipolar affective disorder, mixed (3) Bipolar affective, mixed, sev w/ psych (4) Major depressive disorder, recurrent episode (5) Impulse control disorder (6) Mild cognitive impairment (7) Schizoaffective disorder, bipolar type QIANA MARTEL MD Mar 13, 2019 22:00
--- NOTE | 2019-03-14 02:04 | PN ---
DATE: 03/11/2019 PSYCHIATRIC PROGRESS NOTE This late entry 03/11/2019 covers elements not covered in my initial note. SUBJECTIVE: I met with the patient in the evening of 03/11/2019. The patient slept 7 hours previous night. She has been coming out more to the day room and little more interactive, verbal as I met with her. She denies psychotic symptoms. REVIEW OF SYSTEMS: No CV, , pulmonary, eye system symptoms on review. Apparently, screening person that comes to talk to her, but she is not very interactive with that person. MENTAL STATUS EXAM: Oriented reasonably. Speech is coherent, has some latency. Abstraction fair, computation impaired, language function intact, attention span fair. Mood and affect is improved. She minimized her lack of interaction with the screeners, as I processed this with her. LABORATORY DATA: Reviewed. IMPRESSION: Unchanged from initial note. PLAN: No change from initial note. MAN Suri MARTEL MD DR: KOSTA/kuldip JOB#: [id number] / [id number]
[2019-03-14 06:00] VITALS: BP 130/72
[2019-03-14 07:04] LABS: BASO # 0.1 x10^3/uL (0.0-0.2); BASO % 1 % (0-3); EOS # 0.1 x10^3/uL (0.0-0.7); EOS % 1 % (0-3); HEMATOCRIT 42.8 % (36.0-47.0); HEMOGLOBIN 14.4 g/dL (12.0-15.5); LYMPH % 41 % (24-48); MEAN CORPUSCULAR HEMOGLOBIN 31 pg (25-35); MEAN CORPUSCULAR HGB CONC 34 g/dL (31-37); MEAN CORPUSCULAR VOLUME 93 fL (79-100); MONO # 0.6 x10^3/uL (0.0-1.1); MONO % 8 % (0-9); NEUT # 3.7 x10^3uL (1.8-7.7); NEUT % 50 % (31-73); PLATELET COUNT 200 x10^3/uL (140-400); RED BLOOD COUNT 4.59 x10^6/uL (3.50-5.40); RED CELL DISTRIBUTION WIDTH 13.3 % (11.5-14.5); WHITE BLOOD COUNT 7.4 x10^3/uL (4.0-11.0)
[2019-03-14 07:23] LABS: ALBUMIN/GLOBULIN RATIO 0.8 (1.0-1.7); CALCIUM 9.3 mg/dL (8.5-10.1); CREATININE 0.8 mg/dL (0.6-1.0); GFR 72.7; POTASSIUM 4.3 mmol/L (3.5-5.1); TOTAL BILIRUBIN 0.1 mg/dL (0.2-1.0); TOTAL PROTEIN 6.6 g/dL (6.4-8.2)
--- NOTE | 2019-03-14 11:50 | PN ---
DATE: 03/12/2019 PSYCHIATRIC PROGRESS NOTE This late entry 03/12/2019 covers elements not covered in my initial note. SUBJECTIVE: I met with the patient evening of 03/12/2019. Staffed at a treatment team meeting with the entire team in the morning. Appetite 50-75%, slept 7-3/4 hours. Reportedly, she refused to be interviewed by the level to assess her, but when I addressed this with the patient individually, she denied refusing this whatsoever. She is spending more time in the day room, remains line of sight with nursing staff, little paranoid, but much improved. REVIEW OF SYSTEMS: No CV, , pulmonary, eye, ENT system symptoms on review. Reliability fair. MENTAL STATUS EXAMINATION: Oriented reasonably. Speech has some latency, coherent. She almost always refers to me by my name. She seemed to remember it. Abstraction fair, computation impaired, language function intact, attention span fair. Mood and affect is improved. LABORATORY DATA: Reviewed. IMPRESSION: Unchanged from initial note. PLAN: Increase Risperdal from 1.5 mg at bedtime to 1.75 mg at bedtime. Rest unchanged for now. MAN Suri MARTEL MD DR: KOSTA/kuldip JOB#: [id number] / [id number]
[2019-03-14 15:58] VITALS: BP 114/74
[2019-03-14] MEDS: VALPROATE ACID 250 MG/5 ML ORAL SOLUTION PO SCH (21:17)
[2019-03-14] MEDS: risperiDONE ORAL 1 MG/ML 30ml BOTTLE. SL SCH (21:18)
--- NOTE | 2019-03-14 22:40 | PDOC ---
Exam Note: Johny Note: Please also refer to the separate dictated note~for this date of service dictated separately.~Patient seen individually. Discussed the patient with Nursing staff reviewed the chart.~Reviewed interim history and current functioning. Reviewed vital signs,~Labs/ Radiology~and current medications noted below. Continue current treatment with the changes noted in the dictated addendum note Assessment: Vital Signs/I&O: Vital Signs Date Time Temp Pulse Resp B/P (MAP) Pulse Ox O2 Delivery O2 Flow Rate FiO2 03/14/19 15:58 97.6 68 20 114/74 (87) 98 03/14/19 06:00 Room Air I & O 03/13/19 03/13/19 03/14/19 15:00 23:00 07:00 Intake Total 960 ml 240 ml Balance 960 ml 240 ml Labs: Laboratory Tests Test 03/14/19 06:00 03/14/19 06:20 Sodium Level 139 mmol/L (136-145) Potassium Level 4.3 mmol/L (3.5-5.1) Chloride Level 103 mmol/L (98-107) Carbon Dioxide Level 28 mmol/L (21-32) Anion Gap 8 (6-14) Blood Urea Nitrogen 10 mg/dL (7-20) Creatinine 0.8 mg/dL (0.6-1.0) Estimated GFR (Cockcroft-Gault) 72.7 BUN/Creatinine Ratio 13 (6-20) Glucose Level 87 mg/dL (70-99) Calcium Level 9.3 mg/dL (8.5-10.1) Total Bilirubin 0.1 mg/dL (0.2-1.0) L Aspartate Amino Transferase (AST) 7 U/L (15-37) L Alanine Aminotransferase (ALT) 12 U/L (14-59) L Alkaline Phosphatase 86 U/L (46-116) Total Protein 6.6 g/dL (6.4-8.2) Albumin 3.0 g/dL (3.4-5.0) L Albumin/Globulin Ratio 0.8 (1.0-1.7) L White Blood Count 7.4 x10^3/uL (4.0-11.0) Red Blood Count 4.59 x10^6/uL (3.50-5.40) Hemoglobin 14.4 g/dL (12.0-15.5) Hematocrit 42.8 % (36.0-47.0) Mean Corpuscular Volume 93 fL (79-100) Mean Corpuscular Hemoglobin 31 pg (25-35) Mean Corpuscular Hemoglobin Concent 34 g/dL (31-37) Red Cell Distribution Width 13.3 % (11.5-14.5) Platelet Count 200 x10^3/uL (140-400) Neutrophils (%) (Auto) 50 % (31-73) Lymphocytes (%) (Auto) 41 % (24-48) Monocytes (%) (Auto) 8 % (0-9) Eosinophils (%) (Auto) 1 % (0-3) Basophils (%) (Auto) 1 % (0-3) Neutrophils # (Auto) 3.7 x10^3uL (1.8-7.7) Lymphocytes # (Auto) 3.0 x10^3/uL (1.0-4.8) Monocytes # (Auto) 0.6 x10^3/uL (0.0-1.1) Eosinophils # (Auto) 0.1 x10^3/uL (0.0-0.7) Basophils # (Auto) 0.1 x10^3/uL (0.0-0.2) Current Medications: I have reviewed the current psychotropics carefully including drug interactions. Risk benefit ratio favors no change other than as noted in my dictated progress note. Diagnosis: Problems: (1) Anxiety disorder (2) Bipolar affective disorder, mixed (3) Bipolar affective, mixed, sev w/ psych (4) Major depressive disorder, recurrent episode (5) Impulse control disorder (6) Mild cognitive impairment (7) Schizoaffective disorder, bipolar type QIANA MARTEL MD Mar 14, 2019 22:40
[2019-03-15 05:43] VITALS: BP 105/64
[2019-03-15 16:05] VITALS: BP 125/65
[2019-03-15] MEDS: VALPROATE ACID 250 MG/5 ML ORAL SOLUTION PO SCH (21:26)
[2019-03-15] MEDS: risperiDONE ORAL 1 MG/ML 30ml BOTTLE. SL SCH (21:28)
--- NOTE | 2019-03-15 22:17 | PN ---
DATE: 03/13/2019 PSYCHIATRIC PROGRESS NOTE This late entry of 03/13/2019 covers the elements not covered in my initial note. SUBJECTIVE: I met with the patient in the evening of 03/13/2019. The patient slept 8-1/4 hours previous night. She seems to be doing better, spending much more time in the general lounge area rather than isolating in her room. She complained of feeling a little cold. REVIEW OF SYSTEMS: No CV, , pulmonary, eye, ENT system symptoms on review. MENTAL STATUS EXAM: Reasonably oriented. Speech is coherent, abstraction fair, computation impaired, language function intact, attention span short. Mood and affect a little withdrawn, but much improved. LABORATORY DATA: Reviewed. IMPRESSION: Unchanged from initial note. PLAN: No change from initial note. MAN Suri MARTEL MD DR: KOSTA/kuldip JOB#: [id number] / [id number]
--- NOTE | 2019-03-15 22:21 | PN ---
DATE: 03/14/2019 PSYCHIATRIC PROGRESS NOTE This late entry 03/14/2019 covers elements not covered in my initial note. SUBJECTIVE: I met with the patient evening of 03/14/2019. The patient slept 8 hours previous night. Overall, she has been spending more time in the group area, a little anxious at times, withdrawn at other times, but not in her room. REVIEW OF SYSTEMS: No CV, , pulmonary, eye, ENT system symptoms on review. MENTAL STATUS EXAM: Reasonably oriented. Speech has some latency, coherent. Abstraction fair, computation impaired, language function intact, attention span short. Mood and affect is improved. LABORATORY DATA: Reviewed. IMPRESSION: Unchanged from initial note. PLAN: No change from initial note. Placement is being actively pursued per social service staff and from a psychiatric standpoint, she can transition to the placement as soon as this is arranged and this has been so for the past few days. QIANA MARTEL MD DR: KOSTA/kuldip JOB#: [id number] / [id number]
--- NOTE | 2019-03-15 22:23 | PDOC ---
Exam Note: Johny Note: Please also refer to the separate dictated note~for this date of service dictated separately.~Patient seen individually. Discussed the patient with Nursing staff reviewed the chart.~Reviewed interim history and current functioning. Reviewed vital signs,~Labs/ Radiology~and current medications noted below. Continue current treatment with the changes noted in the dictated addendum note Assessment: Vital Signs/I&O: Vital Signs Date Time Temp Pulse Resp B/P (MAP) Pulse Ox O2 Delivery O2 Flow Rate FiO2 03/15/19 16:05 98.3 85 16 125/65 (85) 99 03/14/19 06:00 Room Air I & O 03/14/19 03/14/19 03/15/19 15:00 23:00 07:00 Intake Total 1200 ml 480 ml 120 ml Balance 1200 ml 480 ml 120 ml Current Medications: I have reviewed the current psychotropics carefully including drug interactions. Risk benefit ratio favors no change other than as noted in my dictated progress note. Diagnosis: Problems: (1) Anxiety disorder (2) Bipolar affective disorder, mixed (3) Bipolar affective, mixed, sev w/ psych (4) Major depressive disorder, recurrent episode (5) Impulse control disorder (6) Mild cognitive impairment (7) Schizoaffective disorder, bipolar type QIANA MARTEL MD Mar 15, 2019 22:23
[2019-03-16 05:50] VITALS: BP 124/73
[2019-03-16] MEDS: CHOLECALCIFEROL (VITAMIN D3) 50,000 UNIT CAPSULE PO SCH (08:02)
[2019-03-16 15:34] VITALS: BP 96/64
[2019-03-16] MEDS: risperiDONE ORAL 1 MG/ML 30ml BOTTLE. SL SCH (19:19)
[2019-03-16] MEDS: VALPROATE ACID 250 MG/5 ML ORAL SOLUTION PO SCH (19:20)
--- NOTE | 2019-03-16 21:44 | PDOC ---
Exam Note: Johny Note: Please also refer to the separate dictated note~for this date of service dictated separately.~Patient seen individually. Discussed the patient with Nursing staff reviewed the chart.~Reviewed interim history and current functioning. Reviewed vital signs,~Labs/ Radiology~and current medications noted below. Continue current treatment with the changes noted in the dictated addendum note Assessment: Vital Signs/I&O: Vital Signs Date Time Temp Pulse Resp B/P (MAP) Pulse Ox O2 Delivery O2 Flow Rate FiO2 03/16/19 15:34 97.4 82 16 96/64 (75) 97 03/14/19 06:00 Room Air I & O 03/15/19 03/15/19 03/16/19 15:00 23:00 07:00 Intake Total 600 ml 600 ml Balance 600 ml 600 ml Current Medications: I have reviewed the current psychotropics carefully including drug interactions. Risk benefit ratio favors no change other than as noted in my dictated progress note. Diagnosis: Problems: (1) Anxiety disorder (2) Bipolar affective disorder, mixed (3) Bipolar affective, mixed, sev w/ psych (4) Major depressive disorder, recurrent episode (5) Impulse control disorder (6) Mild cognitive impairment (7) Schizoaffective disorder, bipolar type QIANA MARTEL MD Mar 16, 2019 21:44
--- NOTE | 2019-03-17 01:07 | PN ---
DATE: 03/15/2019 PSYCHIATRIC PROGRESS NOTE This late entry 03/15/2019 covers elements not covered in my initial note. SUBJECTIVE: I met with the patient evening of 03/15/2019. The patient slept 6 hours previous night. She does come out to the common areas and interacts with others, less withdrawn. REVIEW OF SYSTEMS: No CV, , pulmonary, eye, ENT system symptoms on review. MENTAL STATUS EXAM: The patient is reasonably oriented. Speech is coherent, has some latency. Abstraction fair, computation impaired, language function intact. Attention span improved. Mood and affect is improved. LABORATORY DATA: Reviewed. IMPRESSION: Unchanged from initial note. PLAN: No change from initial note. QIANA MARTEL MD DR: KOSTA/kuldip JOB#: [id number] / [id number]
[2019-03-17 05:46] VITALS: BP 121/76
[2019-03-17 16:05] VITALS: BP 94/54
[2019-03-17] MEDS: VALPROATE ACID 250 MG/5 ML ORAL SOLUTION PO SCH (19:25)
[2019-03-17] MEDS: risperiDONE ORAL 1 MG/ML 30ml BOTTLE. SL SCH (19:26)
--- NOTE | 2019-03-17 21:44 | PDOC ---
Exam Note: Johny Note: Please also refer to the separate dictated note~for this date of service dictated separately.~Patient seen individually. Discussed the patient with Nursing staff reviewed the chart.~Reviewed interim history and current functioning. Reviewed vital signs,~Labs/ Radiology~and current medications noted below. Continue current treatment with the changes noted in the dictated addendum note Assessment: Vital Signs/I&O: Vital Signs Date Time Temp Pulse Resp B/P (MAP) Pulse Ox O2 Delivery O2 Flow Rate FiO2 03/17/19 16:05 97.5 84 20 94/54 (67) 97 03/17/19 05:46 Room Air I & O 03/16/19 03/16/19 03/17/19 15:00 23:00 07:00 Intake Total 720 ml 360 ml Balance 720 ml 360 ml Current Medications: I have reviewed the current psychotropics carefully including drug interactions. Risk benefit ratio favors no change other than as noted in my dictated progress note. Diagnosis: Problems: (1) Anxiety disorder (2) Bipolar affective disorder, mixed (3) Bipolar affective, mixed, sev w/ psych (4) Major depressive disorder, recurrent episode (5) Impulse control disorder (6) Mild cognitive impairment (7) Schizoaffective disorder, bipolar type QIANA MARTEL MD Mar 17, 2019 21:44
--- NOTE | 2019-03-17 23:24 | PN ---
DATE: 03/16/2019 PSYCHIATRIC PROGRESS NOTE This late entry, 03/16, covers the elements not covered in my initial note. SUBJECTIVE: I met with the patient on the evening of 03/16. The patient slept 7 hours previous night. She remains in line of sight with nursing staff for her own safety given the incident that happened earlier in the hospitalization. That patient has since left the unit, however. The patient is spending more time in the dayroom, little more interactive. REVIEW OF SYSTEMS: No CV, , pulmonary, eye, ENT systems symptoms on review. MENTAL STATUS EXAM: Reasonably oriented. Speech is coherent, abstraction fair, computation impaired, language function intact, attention span fair. Mood and affect is improved. LABORATORY DATA: Reviewed. IMPRESSION: Unchanged from initial note. PLAN: No change from initial note. MAN Suri MARTEL MD DR: KOSTA/kuldip JOB#: [id number] / [id number]
[2019-03-18 05:47] VITALS: BP 129/76
[2019-03-18 15:42] VITALS: BP 117/71
[2019-03-18] MEDS: risperiDONE ORAL 1 MG/ML 30ml BOTTLE. SL SCH (19:08)
[2019-03-18] MEDS: VALPROATE ACID 250 MG/5 ML ORAL SOLUTION PO SCH (19:08)
--- NOTE | 2019-03-18 21:06 | PDOC ---
Exam Note: Johny Note: Please also refer to the separate dictated note~for this date of service dictated separately.~Patient seen individually. Discussed the patient with Nursing staff reviewed the chart.~Reviewed interim history and current functioning. Reviewed vital signs,~Labs/ Radiology~and current medications noted below. Continue current treatment with the changes noted in the dictated addendum note Assessment: Vital Signs/I&O: Vital Signs Date Time Temp Pulse Resp B/P (MAP) Pulse Ox O2 Delivery O2 Flow Rate FiO2 03/18/19 15:42 98.6 75 16 117/71 (86) 98 03/17/19 05:46 Room Air I & O 03/17/19 03/17/19 03/18/19 14:59 22:59 06:59 Intake Total 960 ml 480 ml Balance 960 ml 480 ml Current Medications: I have reviewed the current psychotropics carefully including drug interactions. Risk benefit ratio favors no change other than as noted in my dictated progress note. Diagnosis: Problems: (1) Anxiety disorder (2) Bipolar affective disorder, mixed (3) Bipolar affective, mixed, sev w/ psych (4) Major depressive disorder, recurrent episode (5) Impulse control disorder (6) Mild cognitive impairment (7) Schizoaffective disorder, bipolar type QIANA MARTEL MD Mar 18, 2019 21:06
--- NOTE | 2019-03-19 00:35 | PN ---
DATE: 03/17/2019 PSYCHIATRIC PROGRESS NOTE This late entry 03/17/2019 covers elements not covered in my initial note. SUBJECTIVE: I met with the patient in the evening of 03/17/2019. The patient slept 7-3/4 hours previous night. She has been coming out of the day room, still withdrawn, somewhat flat in her affect, not very verbal, but quite interactive as I met with her. REVIEW OF SYSTEMS: No CV, , pulmonary, eye, ENT system symptoms on review. Reliability fair. MENTAL STATUS EXAM: Reasonably oriented. Speech is coherent, abstraction fair, computation impaired, language function intact, attention span short. Mood and affect withdrawn. LABORATORY DATA: Reviewed. IMPRESSION: Unchanged from initial note. PLAN: No change from initial note. MAN Suri MARTEL MD DR: KOSTA/kuldip JOB#: [id number] / [id number]
[2019-03-19 05:23] VITALS: BP 108/67
[2019-03-19 15:45] VITALS: BP 121/76
[2019-03-19] MEDS: VALPROATE ACID 250 MG/5 ML ORAL SOLUTION PO SCH (19:39)
[2019-03-19] MEDS: risperiDONE ORAL 1 MG/ML 30ml BOTTLE. SL SCH (19:39)
--- NOTE | 2019-03-19 21:58 | PDOC ---
Exam Note: Johny Note: Please also refer to the separate dictated note~for this date of service dictated separately.~Patient seen individually. Discussed the patient with Nursing staff reviewed the chart.~Reviewed interim history and current functioning. Reviewed vital signs,~Labs/ Radiology~and current medications noted below. Continue current treatment with the changes noted in the dictated addendum note Assessment: Vital Signs/I&O: Vital Signs Date Time Temp Pulse Resp B/P (MAP) Pulse Ox O2 Delivery O2 Flow Rate FiO2 03/19/19 15:45 97.9 79 17 121/76 (91) 98 Room Air I & O 03/18/19 03/18/19 03/19/19 14:59 22:59 06:59 Intake Total 600 ml 360 ml Balance 600 ml 360 ml Current Medications: I have reviewed the current psychotropics carefully including drug interactions. Risk benefit ratio favors no change other than as noted in my dictated progress note. Diagnosis: Problems: (1) Anxiety disorder (2) Bipolar affective disorder, mixed (3) Bipolar affective, mixed, sev w/ psych (4) Major depressive disorder, recurrent episode (5) Impulse control disorder (6) Mild cognitive impairment (7) Schizoaffective disorder, bipolar type QIANA MARTEL MD Mar 19, 2019 21:58
[2019-03-20 06:00] VITALS: BP 111/72
[2019-03-20] MEDS: risperiDONE MICROSPHERES 25 MG/2 ML DISP.SYRIN. IM SCH (09:00)
[2019-03-20 16:53] VITALS: BP 120/70
[2019-03-20] MEDS: VALPROATE ACID 250 MG/5 ML ORAL SOLUTION PO SCH (19:42)
[2019-03-20] MEDS: risperiDONE ORAL 1 MG/ML 30ml BOTTLE. SL SCH (19:42)
--- NOTE | 2019-03-20 20:14 | PN ---
DATE: 03/18/2019 PSYCHIATRIC PROGRESS NOTE This late entry 03/18/2019, covers the elements not covered in my initial note. SUBJECTIVE: I met with the patient in the evening of 03/18/2019. The patient slept 8-1/4 hours previous night. For the most part, she is doing well. She is still withdrawn, but comes out to the day room, spends much of the day there, which is an improvement for her. REVIEW OF SYSTEMS: No CV, , pulmonary, eye, ENT system symptoms on review. Reliability is fair. MENTAL STATUS EXAM: Oriented to herself and situation. Speech is coherent, has some latency. Abstraction fair, computation impaired, language function intact, attention span short. Mood and affect still withdrawn, but improved. LABORATORY DATA: Reviewed. IMPRESSION: Unchanged from initial note. PLAN: No change from initial note. MAN Suri MARTEL MD DR: KOSTA/kuldip JOB#: [id number] / [id number]
--- NOTE | 2019-03-20 21:43 | PDOC ---
Exam Note: Johny Note: Please also refer to the separate dictated note~for this date of service dictated separately.~Patient seen individually. Discussed the patient with Nursing staff reviewed the chart.~Reviewed interim history and current functioning. Reviewed vital signs,~Labs/ Radiology~and current medications noted below. Continue current treatment with the changes noted in the dictated addendum note Assessment: Vital Signs/I&O: Vital Signs Date Time Temp Pulse Resp B/P (MAP) Pulse Ox O2 Delivery O2 Flow Rate FiO2 03/20/19 16:53 98.2 81 18 120/70 (87) 98 03/19/19 15:45 Room Air I & O 03/19/19 03/19/19 03/20/19 14:59 22:59 06:59 Intake Total 960 ml 480 ml Balance 960 ml 480 ml Current Medications: I have reviewed the current psychotropics carefully including drug interactions. Risk benefit ratio favors no change other than as noted in my dictated progress note. Diagnosis: Problems: (1) Anxiety disorder (2) Bipolar affective disorder, mixed (3) Bipolar affective, mixed, sev w/ psych (4) Major depressive disorder, recurrent episode (5) Impulse control disorder (6) Mild cognitive impairment (7) Schizoaffective disorder, bipolar type QIANA MARTEL MD Mar 20, 2019 21:43
--- NOTE | 2019-03-20 23:04 | PN ---
DATE: 03/19/2019 PSYCHIATRIC PROGRESS NOTE This late entry 03/19/2019 covers elements not covered in my initial note. SUBJECTIVE: I met with the patient evening of 03/19/2019 and staffed at a treatment team meeting with the entire team in the morning. Overall, the patient has been coming out to groups and activities, less withdrawn, psychotic symptoms are much stabilized. REVIEW OF SYSTEMS: No CV, , pulmonary, eye, ENT system symptoms on review. MENTAL STATUS EXAM: Oriented reasonably. Speech has some latency, often responses monosyllabic, coherent. Abstraction fair, computation impaired, language function intact, attention span short. Mood and affect little withdrawn, but much improved, very verbally interactive, always recognizes me and calls me by my name accurately. LABORATORY DATA: Reviewed. IMPRESSION: Unchanged from initial note. PLAN: No change from initial note. MAN Suri MARTEL MD DR: KOSTA/kuldip JOB#: [id number] / [id number]
[2019-03-21 05:41] VITALS: BP 111/63
[2019-03-21 10:42] LABS: BASO # 0.1 x10^3/uL (0.0-0.2); BASO % 1 % (0-3); EOS % 0 % (0-3); HEMATOCRIT 41.1 % (36.0-47.0); HEMOGLOBIN 13.8 g/dL (12.0-15.5); LYMPH # 1.7 x10^3/uL (1.0-4.8); LYMPH % 23 % (24-48); MEAN CORPUSCULAR HEMOGLOBIN 31 pg (25-35); MEAN CORPUSCULAR HGB CONC 34 g/dL (31-37); MEAN CORPUSCULAR VOLUME 93 fL (79-100); MONO # 0.6 x10^3/uL (0.0-1.1); MONO % 8 % (0-9); NEUT # 5.2 x10^3uL (1.8-7.7); NEUT % 68 % (31-73); PLATELET COUNT 188 x10^3/uL (140-400); RED BLOOD COUNT 4.43 x10^6/uL (3.50-5.40); RED CELL DISTRIBUTION WIDTH 13.7 % (11.5-14.5); WHITE BLOOD COUNT 7.6 x10^3/uL (4.0-11.0)
[2019-03-21 10:55] LABS: ALBUMIN 2.8 g/dL (3.4-5.0); ALBUMIN/GLOBULIN RATIO 0.8 (1.0-1.7); CALCIUM 8.9 mg/dL (8.5-10.1); CREATININE 0.8 mg/dL (0.6-1.0); GFR 72.7; POTASSIUM 4.1 mmol/L (3.5-5.1); TOTAL BILIRUBIN 0.2 mg/dL (0.2-1.0); TOTAL PROTEIN 6.3 g/dL (6.4-8.2)
[2019-03-21 15:25] VITALS: BP 111/60
[2019-03-21] MEDS: risperiDONE ORAL 1 MG/ML 30ml BOTTLE. SL SCH (19:27)
[2019-03-21] MEDS: VALPROATE ACID 250 MG/5 ML ORAL SOLUTION PO SCH (19:27)
--- NOTE | 2019-03-21 19:55 | PDOC ---
Exam Note: Johny Note: Please also refer to the separate dictated note~for this date of service dictated separately.~Patient seen individually. Discussed the patient with Nursing staff reviewed the chart.~Reviewed interim history and current functioning. Reviewed vital signs,~Labs/ Radiology~and current medications noted below. Continue current treatment with the changes noted in the dictated addendum note Assessment: Vital Signs/I&O: Vital Signs Date Time Temp Pulse Resp B/P (MAP) Pulse Ox O2 Delivery O2 Flow Rate FiO2 03/21/19 15:25 98.4 70 16 111/60 (77) 96 03/21/19 05:41 Room Air I & O 03/20/19 03/20/19 03/21/19 15:00 23:00 07:00 Intake Total 960 ml 480 ml Balance 960 ml 480 ml Labs: Laboratory Tests Test 03/21/19 10:30 White Blood Count 7.6 x10^3/uL (4.0-11.0) Red Blood Count 4.43 x10^6/uL (3.50-5.40) Hemoglobin 13.8 g/dL (12.0-15.5) Hematocrit 41.1 % (36.0-47.0) Mean Corpuscular Volume 93 fL (79-100) Mean Corpuscular Hemoglobin 31 pg (25-35) Mean Corpuscular Hemoglobin Concent 34 g/dL (31-37) Red Cell Distribution Width 13.7 % (11.5-14.5) Platelet Count 188 x10^3/uL (140-400) Neutrophils (%) (Auto) 68 % (31-73) Lymphocytes (%) (Auto) 23 % (24-48) L Monocytes (%) (Auto) 8 % (0-9) Eosinophils (%) (Auto) 0 % (0-3) Basophils (%) (Auto) 1 % (0-3) Neutrophils # (Auto) 5.2 x10^3uL (1.8-7.7) Lymphocytes # (Auto) 1.7 x10^3/uL (1.0-4.8) Monocytes # (Auto) 0.6 x10^3/uL (0.0-1.1) Eosinophils # (Auto) 0.0 x10^3/uL (0.0-0.7) Basophils # (Auto) 0.1 x10^3/uL (0.0-0.2) Sodium Level 137 mmol/L (136-145) Potassium Level 4.1 mmol/L (3.5-5.1) Chloride Level 103 mmol/L (98-107) Carbon Dioxide Level 26 mmol/L (21-32) Anion Gap 8 (6-14) Blood Urea Nitrogen 13 mg/dL (7-20) Creatinine 0.8 mg/dL (0.6-1.0) Estimated GFR (Cockcroft-Gault) 72.7 BUN/Creatinine Ratio 16 (6-20) Glucose Level 103 mg/dL (70-99) H Calcium Level 8.9 mg/dL (8.5-10.1) Total Bilirubin 0.2 mg/dL (0.2-1.0) Aspartate Amino Transferase (AST) 9 U/L (15-37) L Alanine Aminotransferase (ALT) 9 U/L (14-59) L Alkaline Phosphatase 73 U/L (46-116) Total Protein 6.3 g/dL (6.4-8.2) L Albumin 2.8 g/dL (3.4-5.0) L Albumin/Globulin Ratio 0.8 (1.0-1.7) L Current Medications: I have reviewed the current psychotropics carefully including drug interactions. Risk benefit ratio favors no change other than as noted in my dictated progress note. Diagnosis: Problems: (1) Anxiety disorder (2) Bipolar affective disorder, mixed (3) Bipolar affective, mixed, sev w/ psych (4) Major depressive disorder, recurrent episode (5) Impulse control disorder (6) Mild cognitive impairment (7) Schizoaffective disorder, bipolar type QIANA MARTEL MD Mar 21, 2019 19:55
[2019-03-22 05:56] VITALS: BP 117/77
[2019-03-22 16:06] VITALS: BP 117/76
[2019-03-22] MEDS: VALPROATE ACID 250 MG/5 ML ORAL SOLUTION PO SCH (19:20)
[2019-03-22] MEDS: risperiDONE ORAL 1 MG/ML 30ml BOTTLE. SL SCH (19:21)
--- NOTE | 2019-03-22 21:41 | PDOC ---
Exam Note: Johny Note: Please also refer to the separate dictated note~for this date of service dictated separately.~Patient seen individually. Discussed the patient with Nursing staff reviewed the chart.~Reviewed interim history and current functioning. Reviewed vital signs,~Labs/ Radiology~and current medications noted below. Continue current treatment with the changes noted in the dictated addendum note Assessment: Vital Signs/I&O: Vital Signs Date Time Temp Pulse Resp B/P (MAP) Pulse Ox O2 Delivery O2 Flow Rate FiO2 03/22/19 16:06 98.0 77 20 117/76 (90) 97 03/21/19 05:41 Room Air I & O 03/21/19 03/21/19 03/22/19 15:00 23:00 07:00 Intake Total 960 ml 600 ml Balance 960 ml 600 ml Current Medications: I have reviewed the current psychotropics carefully including drug interactions. Risk benefit ratio favors no change other than as noted in my dictated progress note. Diagnosis: Problems: (1) Anxiety disorder (2) Bipolar affective disorder, mixed (3) Bipolar affective, mixed, sev w/ psych (4) Major depressive disorder, recurrent episode (5) Impulse control disorder (6) Mild cognitive impairment (7) Schizoaffective disorder, bipolar type QIANA MARTEL MD Mar 22, 2019 21:41
--- NOTE | 2019-03-22 21:42 | PN ---
DATE: 03/20/2019 PSYCHIATRIC PROGRESS NOTE This late entry 03/20/2019 covers elements not covered in my initial note. SUBJECTIVE: I met with the patient evening of 03/20/2019. The patient slept 8-3/4 hours previous night. She has received Risperdal Consta and tolerated this well. She is coming out more to the day room, less isolative. REVIEW OF SYSTEMS: No CV, , pulmonary, eye, ENT system symptoms on review. Reliability fair. MENTAL STATUS EXAM: Reasonably oriented. Speech has some latency, coherent. Abstraction fair, computation impaired, language function intact. Mood and affect still withdrawn, but improved. LABORATORY DATA: Reviewed. IMPRESSION: Unchanged from initial note. PLAN: No change from initial note. MAN Suri MARTEL MD DR: KOSTA/kuldip JOB#: [id number] / [id number]
--- NOTE | 2019-03-23 03:09 | PN ---
DATE: 03/21/2019 PSYCHIATRIC PROGRESS NOTE This late entry 03/21/2019 covers elements not covered in my initial note. SUBJECTIVE: I met with the patient evening of 03/21/2019. The patient slept reasonably the previous night. She is a little more interactive comes out of her room much more. There was a question whether one of the patient had attempted to leave the unit and she was well aware of this. Assisting the nursing staff with this. REVIEW OF SYSTEMS: No CV, , pulmonary, eye, ENT system symptoms on review. MENTAL STATUS EXAM: Reasonably oriented. Speech has some latency, coherent. Abstraction fair, computation impaired, language function intact. Mood and affect is improved. LABORATORY DATA: Reviewed. IMPRESSION: Unchanged from initial note. PLAN: No change from initial note. MAN Suri MARTEL MD DR: KOSTA/kuldip JOB#: [id number] / [id number]
[2019-03-23 06:10] VITALS: BP 104/66
[2019-03-23] MEDS: CHOLECALCIFEROL (VITAMIN D3) 50,000 UNIT CAPSULE PO SCH (09:46)
[2019-03-23 16:21] VITALS: BP 107/65
[2019-03-23] MEDS: VALPROATE ACID 250 MG/5 ML ORAL SOLUTION PO SCH (19:41)
[2019-03-23] MEDS: risperiDONE ORAL 1 MG/ML 30ml BOTTLE. SL SCH (19:45)
--- NOTE | 2019-03-23 21:38 | PDOC ---
Exam Note: Johny Note: Please also refer to the separate dictated note~for this date of service dictated separately.~Patient seen individually. Discussed the patient with Nursing staff reviewed the chart.~Reviewed interim history and current functioning. Reviewed vital signs,~Labs/ Radiology~and current medications noted below. Continue current treatment with the changes noted in the dictated addendum note Assessment: Vital Signs/I&O: Vital Signs Date Time Temp Pulse Resp B/P (MAP) Pulse Ox O2 Delivery O2 Flow Rate FiO2 03/23/19 16:21 97.8 80 16 107/65 (79) 98 03/21/19 05:41 Room Air I & O 03/22/19 03/22/19 03/23/19 15:00 23:00 07:00 Intake Total 840 ml 240 ml 120 ml Balance 840 ml 240 ml 120 ml Current Medications: I have reviewed the current psychotropics carefully including drug interactions. Risk benefit ratio favors no change other than as noted in my dictated progress note. Diagnosis: Problems: (1) Anxiety disorder (2) Bipolar affective disorder, mixed (3) Bipolar affective, mixed, sev w/ psych (4) Major depressive disorder, recurrent episode (5) Impulse control disorder (6) Mild cognitive impairment (7) Schizoaffective disorder, bipolar type QIANA MARTEL MD Mar 23, 2019 21:38
--- NOTE | 2019-03-23 22:04 | PN ---
DATE: 03/22/2019 PSYCHIATRIC PROGRESS NOTE This late entry of 03/22/2019 covers the elements not covered in my initial note. SUBJECTIVE: I met with the patient on the evening of 03/22/2019. The patient slept 8-3/4 hours previous night. We are awaiting a level 2 screen and overall, the patient remains fairly stable. REVIEW OF SYSTEMS: No CV, , pulmonary, eye, ENT system symptoms on review. MENTAL STATUS EXAM: Reasonably oriented. Speech is coherent, abstraction fair, computation impaired, language function intact, attention span short. Mood and affect somewhat withdrawn, but improved. LABORATORY DATA: Reviewed. IMPRESSION: Unchanged from initial note. PLAN: No change from initial note. MAN Suri MARTEL MD DR: KOSTA/kuldip JOB#: [id number] / [id number]
[2019-03-24 05:57] VITALS: BP 113/72
[2019-03-24 15:47] VITALS: BP 131/73
[2019-03-24] MEDS: VALPROATE ACID 250 MG/5 ML ORAL SOLUTION PO SCH (20:25)
[2019-03-24] MEDS: risperiDONE ORAL 1 MG/ML 30ml BOTTLE. SL SCH (20:25)
--- NOTE | 2019-03-24 21:55 | PDOC ---
Exam Note: Johny Note: Please also refer to the separate dictated note~for this date of service dictated separately.~Patient seen individually. Discussed the patient with Nursing staff reviewed the chart.~Reviewed interim history and current functioning. Reviewed vital signs,~Labs/ Radiology~and current medications noted below. Continue current treatment with the changes noted in the dictated addendum note Assessment: Vital Signs/I&O: Vital Signs Date Time Temp Pulse Resp B/P (MAP) Pulse Ox O2 Delivery O2 Flow Rate FiO2 03/24/19 15:47 98.1 74 20 131/73 (92) 97 Room Air I & O 03/23/19 03/23/19 03/24/19 15:00 23:00 07:00 Intake Total 600 ml 360 ml Balance 600 ml 360 ml Current Medications: I have reviewed the current psychotropics carefully including drug interactions. Risk benefit ratio favors no change other than as noted in my dictated progress note. Diagnosis: Problems: (1) Anxiety disorder (2) Bipolar affective disorder, mixed (3) Bipolar affective, mixed, sev w/ psych (4) Major depressive disorder, recurrent episode (5) Impulse control disorder (6) Mild cognitive impairment (7) Schizoaffective disorder, bipolar type QIANA MARTEL MD Mar 24, 2019 21:55
--- NOTE | 2019-03-25 00:11 | PN ---
DATE: 03/23/2019 PSYCHIATRIC PROGRESS NOTE This late entry 03/23/2019, covers elements not covered in my initial note. SUBJECTIVE: I met with the patient evening of 03/23/2019. The patient slept 6 hours previous night. She has been attending groups, I met with her in her room in the evening. REVIEW OF SYSTEMS: No CV, , pulmonary, eye, ENT system symptoms on review. MENTAL STATUS EXAMINATION: Oriented reasonably. Speech is coherent, abstraction fair, computation impaired, language function intact. Mood and affect is improved, generally less withdrawn. Level 2 screening is awaited prior to discharge. LABORATORY DATA: Reviewed. IMPRESSION: Unchanged from initial note. PLAN: No change from initial note. QIANA MARTEL MD DR: KOSTA/kuldip JOB#: [id number] / [id number]
[2019-03-25 05:57] VITALS: BP 121/74
[2019-03-25 15:46] VITALS: BP 147/87
[2019-03-25] MEDS: VALPROATE ACID 250 MG/5 ML ORAL SOLUTION PO SCH (19:34)
[2019-03-25] MEDS: risperiDONE ORAL 1 MG/ML 30ml BOTTLE. SL SCH (19:35)
--- NOTE | 2019-03-25 21:59 | PDOC ---
Exam Note: Johny Note: Please also refer to the separate dictated note~for this date of service dictated separately.~Patient seen individually. Discussed the patient with Nursing staff reviewed the chart.~Reviewed interim history and current functioning. Reviewed vital signs,~Labs/ Radiology~and current medications noted below. Continue current treatment with the changes noted in the dictated addendum note Assessment: Vital Signs/I&O: Vital Signs Date Time Temp Pulse Resp B/P (MAP) Pulse Ox O2 Delivery O2 Flow Rate FiO2 03/25/19 15:46 97.4 92 16 147/87 (107) 98 03/24/19 15:47 Room Air I & O 03/24/19 03/24/19 03/25/19 15:00 23:00 07:00 Intake Total 1080 ml 240 ml Balance 1080 ml 240 ml Current Medications: I have reviewed the current psychotropics carefully including drug interactions. Risk benefit ratio favors no change other than as noted in my dictated progress note. Diagnosis: Problems: (1) Anxiety disorder (2) Bipolar affective disorder, mixed (3) Bipolar affective, mixed, sev w/ psych (4) Major depressive disorder, recurrent episode (5) Impulse control disorder (6) Mild cognitive impairment (7) Schizoaffective disorder, bipolar type QIANA MARTEL MD Mar 25, 2019 21:59
--- NOTE | 2019-03-25 22:22 | PN ---
DATE: 03/24/2019 PSYCHIATRIC PROGRESS NOTE This late entry 03/24/2019 covers elements not covered in my initial note. SUBJECTIVE: I met with the patient in the evening of 03/24/2019. Donald Peña RN, the patient slept 7-1/2 hours previous night. She has done reasonably well during the day, a little isolative to her room at times and that is where I met with her in the evening of 03/24/2019. REVIEW OF SYSTEMS: No CV, , pulmonary, eye, ENT system symptoms on review. MENTAL STATUS EXAM: Oriented reasonably. Speech is coherent, abstraction fair, computation impaired, language function intact, attention span short. Mood and affect somewhat withdrawn. She is much less psychotic. LABORATORY DATA: Reviewed. IMPRESSION: Unchanged from initial note. PLAN: No change from initial note. MAN Suri MARTEL MD DR: KOSTA/kuldip JOB#: [id number] / [id number]
[2019-03-26 05:42] VITALS: BP 111/68
[2019-03-26 16:35] VITALS: BP 154/80
[2019-03-26] MEDS: risperiDONE ORAL 1 MG/ML 30ml BOTTLE. SL SCH (20:15)
[2019-03-26] MEDS: VALPROATE ACID 250 MG/5 ML ORAL SOLUTION PO SCH (20:16)
--- NOTE | 2019-03-26 21:39 | PDOC ---
Exam Note: Johny Note: Please also refer to the separate dictated note~for this date of service dictated separately.~Patient seen individually. Discussed the patient with Nursing staff reviewed the chart.~Reviewed interim history and current functioning. Reviewed vital signs,~Labs/ Radiology~and current medications noted below. Continue current treatment with the changes noted in the dictated addendum note Assessment: Vital Signs/I&O: Vital Signs Date Time Temp Pulse Resp B/P (MAP) Pulse Ox O2 Delivery O2 Flow Rate FiO2 03/26/19 16:35 97.4 88 16 154/80 (104) 96 03/24/19 15:47 Room Air I & O 03/25/19 03/25/19 03/26/19 14:59 22:59 06:59 Intake Total 840 ml 240 ml 0 ml Balance 840 ml 240 ml 0 ml Current Medications: I have reviewed the current psychotropics carefully including drug interactions. Risk benefit ratio favors no change other than as noted in my dictated progress note. Diagnosis: Problems: (1) Anxiety disorder (2) Bipolar affective disorder, mixed (3) Bipolar affective, mixed, sev w/ psych (4) Major depressive disorder, recurrent episode (5) Impulse control disorder (6) Mild cognitive impairment (7) Schizoaffective disorder, bipolar type QIANA MARTEL MD Mar 26, 2019 21:39
[2019-03-27 05:46] VITALS: BP 105/50
[2019-03-27 17:00] VITALS: BP 142/84
[2019-03-27] MEDS: VALPROATE ACID 250 MG/5 ML ORAL SOLUTION PO SCH (19:33)
--- NOTE | 2019-03-27 22:01 | PDOC ---
Exam Note: Johny Note: Please also refer to the separate dictated note~for this date of service dictated separately.~Patient seen individually. Discussed the patient with Nursing staff reviewed the chart.~Reviewed interim history and current functioning. Reviewed vital signs,~Labs/ Radiology~and current medications noted below. Continue current treatment with the changes noted in the dictated addendum note Assessment: Vital Signs/I&O: Vital Signs Date Time Temp Pulse Resp B/P (MAP) Pulse Ox O2 Delivery O2 Flow Rate FiO2 03/27/19 17:00 97.4 84 16 142/84 (103) 96 03/24/19 15:47 Room Air I & O 03/26/19 03/26/19 03/27/19 15:00 23:00 07:00 Intake Total 600 ml 360 ml 200 ml Balance 600 ml 360 ml 200 ml Current Medications: I have reviewed the current psychotropics carefully including drug interactions. Risk benefit ratio favors no change other than as noted in my dictated progress note. Diagnosis: Problems: (1) Anxiety disorder (2) Bipolar affective disorder, mixed (3) Bipolar affective, mixed, sev w/ psych (4) Major depressive disorder, recurrent episode (5) Impulse control disorder (6) Mild cognitive impairment (7) Schizoaffective disorder, bipolar type QIANA MARTEL MD Mar 27, 2019 22:01
[2019-03-28 05:31] VITALS: BP 110/74
--- NOTE | 2019-03-28 08:44 | PN ---
DATE: 03/25/2019 PSYCHIATRIC PROGRESS NOTE This late entry 03/25/2019 covers elements not covered in my initial note. SUBJECTIVE: I met with the patient evening of 03/25/2019 and staffed at a treatment team meeting earlier in the day. The patient slept 7 hours. Appetite 75-100%, somewhat withdrawn, waiting for the information from the [facility] for placement options per social service staff. REVIEW OF SYSTEMS: No CV, , pulmonary, eye, ENT system symptoms on review, met with her in her room. MENTAL STATUS EXAMINATION: The patient is reasonably oriented. Speech is coherent, abstraction fair, computation impaired, language function intact, much less paranoid. Mood and affect was improved. She does have some tremulousness. We will monitor this. PLAN: She is on the Risperdal Consta. We may stop the oral Risperdal, but we will see for another day and then decide. QIANA MARTEL MD DR: KOSTA/kuldip JOB#: [id number] / [id number]
[2019-03-28 15:53] VITALS: BP 123/76
--- NOTE | 2019-03-28 19:37 | PN ---
DATE: 03/26/2019 PSYCHIATRIC PROGRESS NOTE This late entry 03/26/2019 covers elements not covered in my initial note. SUBJECTIVE: I met with the patient in the evening. The patient slept 7-1/4 hours previous night. Overall, at times, she is withdrawn, but comes out to groups. She does have some questionable abnormal mouth movements and whole body movements, restlessness, questionable akathisia. REVIEW OF SYSTEMS: No CV, , pulmonary, eye, ENT system symptoms on review. MENTAL STATUS EXAM: Reasonably oriented. Speech coherent. Abstraction fair. Computation somewhat impaired. Language function intact. Mood and affect improved, but slightly withdrawn. She talked at length individually that she has a lot of financial assets and her sister should not be making decisions for her, that she does not have to go to a facility, that she can afford in-home care, that is what is needed for her, wanting to get back home. She will discuss with Margot Bennett, creative services coordinator about this. Social service issues. No active suicidal or homicidal ideation. No clear psychotic symptoms. LABORATORY DATA: Reviewed. IMPRESSION: Unchanged from initial note. PLAN: Given the questionable abnormal body movements and akathisia, we will stop the Risperdal oral 1.75 mg at bedtime. She remains on Risperdal Consta 25 mg q. 2 weeks, last given 03/20/2019. Maintain Depakene 1000 mg at bedtime, level is 88, therapeutic, Zyprexa p.r.n. QIANA MARTEL MD DR: KOSTA/kuldip JOB#: [id number] / [id number]
[2019-03-28] MEDS: VALPROATE ACID 250 MG/5 ML ORAL SOLUTION PO SCH (20:47)
--- NOTE | 2019-03-28 23:00 | PDOC ---
Exam Note: Johny Note: Please also refer to the separate dictated note~for this date of service dictated separately.~Patient seen individually. Discussed the patient with Nursing staff reviewed the chart.~Reviewed interim history and current functioning. Reviewed vital signs,~Labs/ Radiology~and current medications noted below. Continue current treatment with the changes noted in the dictated addendum note Assessment: Vital Signs/I&O: Vital Signs Date Time Temp Pulse Resp B/P (MAP) Pulse Ox O2 Delivery O2 Flow Rate FiO2 03/28/19 15:53 98.5 81 20 123/76 (92) 97 03/24/19 15:47 Room Air I & O 03/27/19 03/27/19 03/28/19 15:00 23:00 07:00 Intake Total 720 ml 360 ml 0 ml Balance 720 ml 360 ml 0 ml Current Medications: I have reviewed the current psychotropics carefully including drug interactions. Risk benefit ratio favors no change other than as noted in my dictated progress note. Diagnosis: Problems: (1) Anxiety disorder (2) Bipolar affective disorder, mixed (3) Bipolar affective, mixed, sev w/ psych (4) Major depressive disorder, recurrent episode (5) Impulse control disorder (6) Mild cognitive impairment (7) Schizoaffective disorder, bipolar type QIANA MARTEL MD Mar 28, 2019 23:00
--- NOTE | 2019-03-29 01:44 | PN ---
DATE: 03/27/2019 PSYCHIATRIC PROGRESS NOTE This late entry of 03/27/2019 covers elements not covered in my initial note. SUBJECTIVE: I met with the patient on the evening of 03/27/2019. The patient slept 6-3/4 hours the previous night. Her mouth movements and body movements are much improved, and she is tolerating coming off the oral Risperdal 1.75 mg as she remains on Risperdal Consta. REVIEW OF SYSTEMS: No CV, , pulmonary, eye, ENT system symptoms on review. MENTAL STATUS EXAMINATION: The patient is reasonably oriented. Speech is coherent, abstraction fair, computation impaired, language function intact, attention span short. Mood and affect is still withdrawn, but improved. LABORATORY DATA: Reviewed. IMPRESSION: Unchanged from initial note. PLAN: No change from initial note. MAN Suri MARTEL MD DR: KOSTA/kuldip JOB#: [id number] / [id number]
[2019-03-29 06:13] VITALS: BP 111/72
[2019-03-29 07:15] LABS: BASO # 0.1 x10^3/uL (0.0-0.2); BASO % 1 % (0-3); EOS # 0.1 x10^3/uL (0.0-0.7); EOS % 1 % (0-3); HEMOGLOBIN 14.7 g/dL (12.0-15.5); LYMPH # 2.4 x10^3/uL (1.0-4.8); LYMPH % 38 % (24-48); MEAN CORPUSCULAR HEMOGLOBIN 31 pg (25-35); MEAN CORPUSCULAR HGB CONC 33 g/dL (31-37); MEAN CORPUSCULAR VOLUME 92 fL (79-100); MONO # 0.6 x10^3/uL (0.0-1.1); MONO % 9 % (0-9); NEUT # 3.2 x10^3uL (1.8-7.7); NEUT % 51 % (31-73); PLATELET COUNT 193 x10^3/uL (140-400); RED BLOOD COUNT 4.78 x10^6/uL (3.50-5.40); RED CELL DISTRIBUTION WIDTH 13.9 % (11.5-14.5); WHITE BLOOD COUNT 6.3 x10^3/uL (4.0-11.0)
[2019-03-29 07:32] LABS: ALBUMIN 3.1 g/dL (3.4-5.0); ALBUMIN/GLOBULIN RATIO 0.8 (1.0-1.7); CALCIUM 9.1 mg/dL (8.5-10.1); CREATININE 0.8 mg/dL (0.6-1.0); GFR 72.7; POTASSIUM 4.5 mmol/L (3.5-5.1); TOTAL BILIRUBIN 0.3 mg/dL (0.2-1.0); TOTAL PROTEIN 6.8 g/dL (6.4-8.2)
[2019-03-29 15:53] VITALS: BP 141/85
[2019-03-29] MEDS: VALPROATE ACID 250 MG/5 ML ORAL SOLUTION PO SCH (19:46)
--- NOTE | 2019-03-29 21:36 | PDOC ---
Exam Note: Johny Note: Please also refer to the separate dictated note~for this date of service dictated separately.~Patient seen individually. Discussed the patient with Nursing staff reviewed the chart.~Reviewed interim history and current functioning. Reviewed vital signs,~Labs/ Radiology~and current medications noted below. Continue current treatment with the changes noted in the dictated addendum note Assessment: Vital Signs/I&O: Vital Signs Date Time Temp Pulse Resp B/P (MAP) Pulse Ox O2 Delivery O2 Flow Rate FiO2 03/29/19 15:53 97.4 88 18 141/85 (103) 96 03/24/19 15:47 Room Air I & O 03/28/19 03/28/19 03/29/19 15:00 23:00 07:00 Intake Total 1080 ml 240 ml Balance 1080 ml 240 ml Labs: Laboratory Tests Test 03/29/19 06:52 White Blood Count 6.3 x10^3/uL (4.0-11.0) Red Blood Count 4.78 x10^6/uL (3.50-5.40) Hemoglobin 14.7 g/dL (12.0-15.5) Hematocrit 44.0 % (36.0-47.0) Mean Corpuscular Volume 92 fL (79-100) Mean Corpuscular Hemoglobin 31 pg (25-35) Mean Corpuscular Hemoglobin Concent 33 g/dL (31-37) Red Cell Distribution Width 13.9 % (11.5-14.5) Platelet Count 193 x10^3/uL (140-400) Neutrophils (%) (Auto) 51 % (31-73) Lymphocytes (%) (Auto) 38 % (24-48) Monocytes (%) (Auto) 9 % (0-9) Eosinophils (%) (Auto) 1 % (0-3) Basophils (%) (Auto) 1 % (0-3) Neutrophils # (Auto) 3.2 x10^3uL (1.8-7.7) Lymphocytes # (Auto) 2.4 x10^3/uL (1.0-4.8) Monocytes # (Auto) 0.6 x10^3/uL (0.0-1.1) Eosinophils # (Auto) 0.1 x10^3/uL (0.0-0.7) Basophils # (Auto) 0.1 x10^3/uL (0.0-0.2) Sodium Level 138 mmol/L (136-145) Potassium Level 4.5 mmol/L (3.5-5.1) Chloride Level 103 mmol/L (98-107) Carbon Dioxide Level 26 mmol/L (21-32) Anion Gap 9 (6-14) Blood Urea Nitrogen 13 mg/dL (7-20) Creatinine 0.8 mg/dL (0.6-1.0) Estimated GFR (Cockcroft-Gault) 72.7 BUN/Creatinine Ratio 16 (6-20) Glucose Level 90 mg/dL (70-99) Calcium Level 9.1 mg/dL (8.5-10.1) Total Bilirubin 0.3 mg/dL (0.2-1.0) Aspartate Amino Transferase (AST) 8 U/L (15-37) L Alanine Aminotransferase (ALT) 9 U/L (14-59) L Alkaline Phosphatase 73 U/L (46-116) Total Protein 6.8 g/dL (6.4-8.2) Albumin 3.1 g/dL (3.4-5.0) L Albumin/Globulin Ratio 0.8 (1.0-1.7) L Current Medications: I have reviewed the current psychotropics carefully including drug interactions. Risk benefit ratio favors no change other than as noted in my dictated progress note. Diagnosis: Problems: (1) Anxiety disorder (2) Bipolar affective disorder, mixed (3) Bipolar affective, mixed, sev w/ psych (4) Major depressive disorder, recurrent episode (5) Impulse control disorder (6) Mild cognitive impairment (7) Schizoaffective disorder, bipolar type QIANA MARTEL MD Mar 29, 2019 21:36
[2019-03-30 06:06] VITALS: BP 110/63
[2019-03-30] MEDS: CHOLECALCIFEROL (VITAMIN D3) 50,000 UNIT CAPSULE PO SCH (11:46)
[2019-03-30 16:00] VITALS: BP 121/76
[2019-03-30] MEDS: VALPROATE ACID 250 MG/5 ML ORAL SOLUTION PO SCH (19:53)
--- NOTE | 2019-03-30 21:39 | PDOC ---
Exam Note: Johny Note: Please also refer to the separate dictated note~for this date of service dictated separately.~Patient seen individually. Discussed the patient with Nursing staff reviewed the chart.~Reviewed interim history and current functioning. Reviewed vital signs,~Labs/ Radiology~and current medications noted below. Continue current treatment with the changes noted in the dictated addendum note Assessment: Vital Signs/I&O: Vital Signs Date Time Temp Pulse Resp B/P (MAP) Pulse Ox O2 Delivery O2 Flow Rate FiO2 03/30/19 16:00 98.8 89 16 121/76 (91) 96 03/24/19 15:47 Room Air I & O 03/29/19 03/29/19 03/30/19 15:00 23:00 07:00 Intake Total 720 ml 360 ml Balance 720 ml 360 ml Current Medications: I have reviewed the current psychotropics carefully including drug interactions. Risk benefit ratio favors no change other than as noted in my dictated progress note. Diagnosis: Problems: (1) Anxiety disorder (2) Bipolar affective disorder, mixed (3) Bipolar affective, mixed, sev w/ psych (4) Major depressive disorder, recurrent episode (5) Impulse control disorder (6) Mild cognitive impairment (7) Schizoaffective disorder, bipolar type QIANA MARTEL MD Mar 30, 2019 21:39
--- NOTE | 2019-03-31 01:50 | PN ---
DATE: 03/29/2019 PSYCHIATRIC PROGRESS NOTE This late entry 03/29/2019 covers the elements not covered in my initial note. SUBJECTIVE: I met with the patient in the evening of 03/29/2019. The patient slept 9 hours previous night. She remains withdrawn, spends much time in her room, but quite appropriate, very interactive, as I met with her. REVIEW OF SYSTEMS: No CV, , pulmonary, eye, ENT system symptoms on review. Reliability is fair. MENTAL STATUS EXAM: Reasonably oriented. Speech is coherent, abstraction fair, computation impaired, language function intact. Mood and affect is improved. LABORATORY DATA: Reviewed. IMPRESSION: Unchanged from initial note. PLAN: No change from initial note. QIANA MARTEL MD DR: KOSTA/kuldip JOB#: [id number] / [id number]
--- NOTE | 2019-03-31 01:57 | PN ---
DATE: 03/28/2019 PSYCHIATRIC PROGRESS NOTE This late entry, 03/28, covers elements not covered in my initial note. SUBJECTIVE: I met with the patient evening of 03/28. The patient slept 8 hours previous night. She has been withdrawn, but denies any psychotic symptoms despite stopping the oral Risperdal. She remains on Risperdal Consta. She had many questions about discharge plans and we will discuss with social service staff about this. REVIEW OF SYSTEMS: No CV, , pulmonary, eye, ENT system symptoms on review. The abnormal mouth movements, body movements seem to have resolved since we stopped the Risperdal. MENTAL STATUS EXAM: Reasonably oriented. Speech is coherent, abstraction fair, computation impaired, language function intact. Mood and affect is improved. LABORATORY DATA: Reviewed. IMPRESSION: Unchanged from initial note. PLAN: No change from initial note. MAN Suri MARTEL MD DR: KOSTA/kuldip JOB#: [id number] / [id number]
[2019-03-31 06:37] VITALS: BP 116/55
[2019-03-31 16:53] VITALS: BP 143/83
[2019-03-31] MEDS: VALPROATE ACID 250 MG/5 ML ORAL SOLUTION PO SCH (21:15)
--- NOTE | 2019-03-31 22:01 | PDOC ---
Exam Note: Johny Note: Please also refer to the separate dictated note~for this date of service dictated separately.~Patient seen individually. Discussed the patient with Nursing staff reviewed the chart.~Reviewed interim history and current functioning. Reviewed vital signs,~Labs/ Radiology~and current medications noted below. Continue current treatment with the changes noted in the dictated addendum note Assessment: Vital Signs/I&O: Vital Signs Date Time Temp Pulse Resp B/P (MAP) Pulse Ox O2 Delivery O2 Flow Rate FiO2 03/31/19 16:53 97.9 90 16 143/83 (103) 95 I & O 03/30/19 03/30/19 03/31/19 15:00 23:00 07:00 Intake Total 960 ml 240 ml 100 ml Balance 960 ml 240 ml 100 ml Current Medications: I have reviewed the current psychotropics carefully including drug interactions. Risk benefit ratio favors no change other than as noted in my dictated progress note. Diagnosis: Problems: (1) Anxiety disorder (2) Bipolar affective disorder, mixed (3) Bipolar affective, mixed, sev w/ psych (4) Major depressive disorder, recurrent episode (5) Impulse control disorder (6) Mild cognitive impairment (7) Schizoaffective disorder, bipolar type QIANA MARTEL MD Mar 31, 2019 22:01
--- NOTE | 2019-03-31 23:04 | PN ---
DATE: 03/30/2019 PSYCHIATRIC PROGRESS NOTE This late entry 03/30/2019 covers elements not covered in my initial note. SUBJECTIVE: I met with the patient in the evening. Overall, patient remains somewhat withdrawn, but very interactive, verbal appropriate as I met with her in her room. She slept well. REVIEW OF SYSTEMS: No CV, , pulmonary, eye, ENT system symptoms on review. Reliability fair. MENTAL STATUS EXAM: Oriented to herself and situation. Speech is coherent, abstraction fair, computation impaired, language function intact, attention span short. Mood and affect slightly withdrawn, but no psychotic symptoms noted. LABORATORY DATA: Reviewed. IMPRESSION: Unchanged from initial note. PLAN: No change from initial note. QIANA MARTEL MD DR: KOSTA/kuldip JOB#: [id number] / [id number]
[2019-04-01 06:36] VITALS: BP 137/78
[2019-04-01 17:07] VITALS: BP 125/77
[2019-04-01] MEDS: VALPROATE ACID 250 MG/5 ML ORAL SOLUTION PO SCH (20:12)
--- NOTE | 2019-04-01 21:45 | PDOC ---
Exam Note: Johny Note: Please also refer to the separate dictated note~for this date of service dictated separately.~Patient seen individually. Discussed the patient with Nursing staff reviewed the chart.~Reviewed interim history and current functioning. Reviewed vital signs,~Labs/ Radiology~and current medications noted below. Continue current treatment with the changes noted in the dictated addendum note Assessment: Vital Signs/I&O: Vital Signs Date Time Temp Pulse Resp B/P (MAP) Pulse Ox O2 Delivery O2 Flow Rate FiO2 04/01/19 17:07 97.1 78 16 125/77 (93) 96 I & O 03/31/19 03/31/19 04/01/19 15:00 23:00 07:00 Intake Total 720 ml 560 ml Balance 720 ml 560 ml Current Medications: I have reviewed the current psychotropics carefully including drug interactions. Risk benefit ratio favors no change other than as noted in my dictated progress note. Diagnosis: Problems: (1) Anxiety disorder (2) Bipolar affective disorder, mixed (3) Bipolar affective, mixed, sev w/ psych (4) Major depressive disorder, recurrent episode (5) Impulse control disorder (6) Mild cognitive impairment (7) Schizoaffective disorder, bipolar type QIANA MARTEL MD Apr 01, 2019 21:45
--- NOTE | 2019-04-02 00:33 | PN ---
DATE: 03/31/2019 This late entry 03/31/2019 covers elements not covered in my initial note. SUBJECTIVE: I met with the patient in the evening of 03/31/2019. The patient slept 9-3/4 hours previous night. I met with her in her room at length. The patient has been somewhat withdrawn. REVIEW OF SYSTEMS: No CV, , pulmonary, eye, ENT system symptoms on review. Often verbal responses monosyllabic. MENTAL STATUS EXAM: Reasonably oriented. Speech has often verbal monosyllabic. Abstraction fair, computation impaired, language function intact. Mood and affect withdrawn, but no clear psychotic symptoms. No suicidal ideation. LABORATORY DATA: Reviewed. IMPRESSION: Unchanged from initial note. PLAN: No change from initial note. MAN Suri MARTEL MD DR: KOSTA/kuldip JOB#: [id number] / [id number]
[2019-04-02 06:29] VITALS: BP 122/79
[2019-04-02] MEDS ORDERED: FLU VAX QS 2019-20 (36MOS+)/PF 0.5 ML SYRINGE. VAX IM ONE (14:00)
[2019-04-02 15:41] VITALS: BP 125/78
[2019-04-02] MEDS: VALPROATE ACID 250 MG/5 ML ORAL SOLUTION PO SCH (20:22)
--- NOTE | 2019-04-02 21:52 | PDOC ---
Exam Note: Johny Note: Please also refer to the separate dictated note~for this date of service dictated separately.~Patient seen individually. Discussed the patient with Nursing staff reviewed the chart.~Reviewed interim history and current functioning. Reviewed vital signs,~Labs/ Radiology~and current medications noted below. Continue current treatment with the changes noted in the dictated addendum note Assessment: Vital Signs/I&O: Vital Signs Date Time Temp Pulse Resp B/P (MAP) Pulse Ox O2 Delivery O2 Flow Rate FiO2 04/02/19 15:41 98.9 89 18 125/78 (94) 98 I & O 04/01/19 04/01/19 04/02/19 15:00 23:00 07:00 Intake Total 840 ml 480 ml Balance 840 ml 480 ml Current Medications: I have reviewed the current psychotropics carefully including drug interactions. Risk benefit ratio favors no change other than as noted in my dictated progress note. Diagnosis: Problems: (1) Anxiety disorder (2) Bipolar affective disorder, mixed (3) Bipolar affective, mixed, sev w/ psych (4) Major depressive disorder, recurrent episode (5) Impulse control disorder (6) Mild cognitive impairment (7) Schizoaffective disorder, bipolar type QIANA MARTEL MD Apr 02, 2019 21:52
[2019-04-03 05:06] VITALS: BP 111/70
[2019-04-03] MEDS: risperiDONE MICROSPHERES 25 MG/2 ML DISP.SYRIN. IM SCH (09:27)
[2019-04-03 16:25] VITALS: BP 117/75
--- NOTE | 2019-04-03 19:25 | PN ---
DATE: 04/01/2019 PSYCHIATRIC PROGRESS NOTE This late entry April 01 covers elements not covered in my initial note. SUBJECTIVE: I met with the patient evening of April 01. The patient slept 9 hours previous night per nursing report by HARSHA Brandt. The patient has been withdrawn, but denies any hallucinations. I met with her at length in her room in the evening. REVIEW OF SYSTEMS: No CV, , pulmonary, eye, ENT system symptoms on review. Reliability is fair. MENTAL STATUS EXAMINATION: The patient is reasonably oriented. Speech is coherent, has some latency. Abstraction fair. Computation impaired. Language function intact. Attention span fair. Mood and affect somewhat withdrawn, but improved. LABORATORY DATA: Reviewed. IMPRESSION: Unchanged from initial note. PLAN: No change from initial note. MAN Suri MARTEL MD DR: KOSTA/kuldip JOB#: [id number] / [id number]
[2019-04-03] MEDS: VALPROATE ACID 250 MG/5 ML ORAL SOLUTION PO SCH (19:48)
--- NOTE | 2019-04-03 21:43 | PDOC ---
Exam Note: Johny Note: Please also refer to the separate dictated note~for this date of service dictated separately.~Patient seen individually. Discussed the patient with Nursing staff reviewed the chart.~Reviewed interim history and current functioning. Reviewed vital signs,~Labs/ Radiology~and current medications noted below. Continue current treatment with the changes noted in the dictated addendum note Assessment: Vital Signs/I&O: Vital Signs Date Time Temp Pulse Resp B/P (MAP) Pulse Ox O2 Delivery O2 Flow Rate FiO2 04/03/19 16:25 97.5 90 18 117/75 (89) 96 I & O 04/02/19 04/02/19 04/03/19 15:00 23:00 07:00 Intake Total 960 ml 480 ml 240 ml Balance 960 ml 480 ml 240 ml Current Medications: I have reviewed the current psychotropics carefully including drug interactions. Risk benefit ratio favors no change other than as noted in my dictated progress note. Diagnosis: Problems: (1) Anxiety disorder (2) Bipolar affective disorder, mixed (3) Bipolar affective, mixed, sev w/ psych (4) Major depressive disorder, recurrent episode (5) Impulse control disorder (6) Mild cognitive impairment (7) Schizoaffective disorder, bipolar type QIANA MARTEL MD Apr 03, 2019 21:43
--- NOTE | 2019-04-03 22:37 | PN ---
DATE: 04/02/2019 PSYCHIATRIC PROGRESS NOTE This late entry 04/02/2019 covers elements not covered in my initial note. SUBJECTIVE: I met with the patient in the evening and staffed at a treatment team meeting with the entire team in the morning. The patient's level 2 screen is back. Social service staff is actively looking at transitioning her to a lower level of care. Appetite 75-100%. She sleeps well and then withdrawn to her room during the day, alert, oriented x 4. She has been drinking milk, tolerating it well, compliant with meds and cares and shower. I met with her in her room. REVIEW OF SYSTEMS: No CV, , pulmonary, eye, ENT system symptoms on review. MENTAL STATUS EXAM: Reasonably oriented. Speech is coherent, has some latency. Abstraction fair, computation impaired, language function intact. Mood and affect somewhat withdrawn, but improved. LABORATORY DATA: Reviewed. IMPRESSION: Schizoaffective disorder, bipolar type, mixed with psychotic features, in partial remission. Rest unchanged. PLAN: No change from initial note, arrange placement as soon as arranged. QIANA MARTEL MD DR: KOSTA/kuldip JOB#: [id number] / [id number]
[2019-04-04 05:12] VITALS: BP 113/73
[2019-04-04 08:28] LABS: BASO % 1 % (0-3); EOS # 0.1 x10^3/uL (0.0-0.7); EOS % 1 % (0-3); HEMATOCRIT 42.1 % (36.0-47.0); HEMOGLOBIN 14.2 g/dL (12.0-15.5); LYMPH # 2.5 x10^3/uL (1.0-4.8); LYMPH % 40 % (24-48); MEAN CORPUSCULAR HEMOGLOBIN 32 pg (25-35); MEAN CORPUSCULAR HGB CONC 34 g/dL (31-37); MEAN CORPUSCULAR VOLUME 93 fL (79-100); MONO # 0.5 x10^3/uL (0.0-1.1); MONO % 8 % (0-9); NEUT # 3.2 x10^3uL (1.8-7.7); NEUT % 51 % (31-73); PLATELET COUNT 202 x10^3/uL (140-400); RED CELL DISTRIBUTION WIDTH 14.1 % (11.5-14.5); WHITE BLOOD COUNT 6.4 x10^3/uL (4.0-11.0)
[2019-04-04 08:44] LABS: ALBUMIN 2.9 g/dL (3.4-5.0); ALBUMIN/GLOBULIN RATIO 0.8 (1.0-1.7); CREATININE 0.8 mg/dL (0.6-1.0); GFR 72.7; POTASSIUM 4.5 mmol/L (3.5-5.1); TOTAL BILIRUBIN 0.3 mg/dL (0.2-1.0); TOTAL PROTEIN 6.6 g/dL (6.4-8.2)
[2019-04-04 15:29] VITALS: BP 116/75
[2019-04-04] MEDS: VALPROATE ACID 250 MG/5 ML ORAL SOLUTION PO SCH (20:37)
--- NOTE | 2019-04-04 22:15 | PDOC ---
Exam Note: Johny Note: Please also refer to the separate dictated note~for this date of service dictated separately.~Patient seen individually. Discussed the patient with Nursing staff reviewed the chart.~Reviewed interim history and current functioning. Reviewed vital signs,~Labs/ Radiology~and current medications noted below. Continue current treatment with the changes noted in the dictated addendum note Assessment: Vital Signs/I&O: Vital Signs Date Time Temp Pulse Resp B/P (MAP) Pulse Ox O2 Delivery O2 Flow Rate FiO2 04/04/19 15:29 98.4 98 18 116/75 (89) 97 I & O 04/03/19 04/03/19 04/04/19 15:00 23:00 07:00 Intake Total 1200 ml 480 ml Balance 1200 ml 480 ml Labs: Laboratory Tests Test 04/04/19 07:30 White Blood Count 6.4 x10^3/uL (4.0-11.0) Red Blood Count 4.50 x10^6/uL (3.50-5.40) Hemoglobin 14.2 g/dL (12.0-15.5) Hematocrit 42.1 % (36.0-47.0) Mean Corpuscular Volume 93 fL (79-100) Mean Corpuscular Hemoglobin 32 pg (25-35) Mean Corpuscular Hemoglobin Concent 34 g/dL (31-37) Red Cell Distribution Width 14.1 % (11.5-14.5) Platelet Count 202 x10^3/uL (140-400) Neutrophils (%) (Auto) 51 % (31-73) Lymphocytes (%) (Auto) 40 % (24-48) Monocytes (%) (Auto) 8 % (0-9) Eosinophils (%) (Auto) 1 % (0-3) Basophils (%) (Auto) 1 % (0-3) Neutrophils # (Auto) 3.2 x10^3uL (1.8-7.7) Lymphocytes # (Auto) 2.5 x10^3/uL (1.0-4.8) Monocytes # (Auto) 0.5 x10^3/uL (0.0-1.1) Eosinophils # (Auto) 0.1 x10^3/uL (0.0-0.7) Basophils # (Auto) 0.0 x10^3/uL (0.0-0.2) Sodium Level 138 mmol/L (136-145) Potassium Level 4.5 mmol/L (3.5-5.1) Chloride Level 102 mmol/L (98-107) Carbon Dioxide Level 27 mmol/L (21-32) Anion Gap 9 (6-14) Blood Urea Nitrogen 13 mg/dL (7-20) Creatinine 0.8 mg/dL (0.6-1.0) Estimated GFR (Cockcroft-Gault) 72.7 BUN/Creatinine Ratio 16 (6-20) Glucose Level 83 mg/dL (70-99) Calcium Level 9.0 mg/dL (8.5-10.1) Total Bilirubin 0.3 mg/dL (0.2-1.0) Aspartate Amino Transferase (AST) 7 U/L (15-37) L Alanine Aminotransferase (ALT) 9 U/L (14-59) L Alkaline Phosphatase 70 U/L (46-116) Total Protein 6.6 g/dL (6.4-8.2) Albumin 2.9 g/dL (3.4-5.0) L Albumin/Globulin Ratio 0.8 (1.0-1.7) L Current Medications: I have reviewed the current psychotropics carefully including drug interactions. Risk benefit ratio favors no change other than as noted in my dictated progress note. Diagnosis: Problems: (1) Anxiety disorder (2) Bipolar affective disorder, mixed (3) Bipolar affective, mixed, sev w/ psych (4) Major depressive disorder, recurrent episode (5) Impulse control disorder (6) Mild cognitive impairment (7) Schizoaffective disorder, bipolar type QIANA MARTEL MD Apr 04, 2019 22:15
[2019-04-05 05:39] VITALS: BP 114/74
[2019-04-05 16:01] VITALS: BP 128/81
[2019-04-05] MEDS: VALPROATE ACID 250 MG/5 ML ORAL SOLUTION PO SCH (20:20)
--- NOTE | 2019-04-05 21:30 | PDOC ---
Exam Note: Johny Note: Please also refer to the separate dictated note~for this date of service dictated separately.~Patient seen individually. Discussed the patient with Nursing staff reviewed the chart.~Reviewed interim history and current functioning. Reviewed vital signs,~Labs/ Radiology~and current medications noted below. Continue current treatment with the changes noted in the dictated addendum note Assessment: Vital Signs/I&O: Vital Signs Date Time Temp Pulse Resp B/P (MAP) Pulse Ox O2 Delivery O2 Flow Rate FiO2 04/05/19 16:01 97.4 84 18 128/81 (97) 94 I & O 04/04/19 04/04/19 04/05/19 15:00 23:00 07:00 Intake Total 840 ml 360 ml 240 ml Balance 840 ml 360 ml 240 ml Current Medications: I have reviewed the current psychotropics carefully including drug interactions. Risk benefit ratio favors no change other than as noted in my dictated progress note. Diagnosis: Problems: (1) Anxiety disorder (2) Bipolar affective disorder, mixed (3) Bipolar affective, mixed, sev w/ psych (4) Major depressive disorder, recurrent episode (5) Impulse control disorder (6) Mild cognitive impairment (7) Schizoaffective disorder, bipolar type QIANA MARTEL MD Apr 05, 2019 21:29
--- NOTE | 2019-04-06 00:12 | PN ---
DATE: 04/03/2019 PSYCHIATRIC PROGRESS NOTE This late entry 04/03/2019 covers elements not covered in my initial note. SUBJECTIVE: I met with the patient evening of 04/03/2019. The patient slept 8-3/4 hours previous night. The patient remains somewhat withdrawn to her room, but denies overt psychotic symptoms as I met with her. Per HARSHA López, the patient does come out for her meals and interacts during those visits. REVIEW OF SYSTEMS: No CV, , pulmonary, eye, ENT system symptoms on review. MENTAL STATUS EXAM: The patient is reasonably oriented. Speech is coherent, has some latency. Abstraction fair, computation impaired, language function intact, attention span short. Mood and affect somewhat withdrawn. LABORATORY DATA: Reviewed. IMPRESSION: Unchanged from initial note. PLAN: No change from initial note. MAN Suri MARTEL MD DR: KOSTA/kuldip JOB#: [id number] / [id number]
[2019-04-06 05:19] VITALS: BP 101/68
[2019-04-06] MEDS: CHOLECALCIFEROL (VITAMIN D3) 50,000 UNIT CAPSULE PO SCH (07:40)
[2019-04-06 16:01] VITALS: BP 107/68
[2019-04-06] MEDS: VALPROATE ACID 250 MG/5 ML ORAL SOLUTION PO SCH (19:35)
--- NOTE | 2019-04-06 21:40 | PDOC ---
Exam Note: Johny Note: Please also refer to the separate dictated note~for this date of service dictated separately.~Patient seen individually. Discussed the patient with Nursing staff reviewed the chart.~Reviewed interim history and current functioning. Reviewed vital signs,~Labs/ Radiology~and current medications noted below. Continue current treatment with the changes noted in the dictated addendum note Assessment: Vital Signs/I&O: Vital Signs Date Time Temp Pulse Resp B/P (MAP) Pulse Ox O2 Delivery O2 Flow Rate FiO2 04/06/19 16:01 97.3 98 20 107/68 (81) 99 I & O 04/05/19 04/05/19 04/06/19 15:00 23:00 07:00 Intake Total 960 ml 580 ml Balance 960 ml 580 ml Current Medications: I have reviewed the current psychotropics carefully including drug interactions. Risk benefit ratio favors no change other than as noted in my dictated progress note. Diagnosis: Problems: (1) Anxiety disorder (2) Bipolar affective disorder, mixed (3) Bipolar affective, mixed, sev w/ psych (4) Major depressive disorder, recurrent episode (5) Impulse control disorder (6) Mild cognitive impairment (7) Schizoaffective disorder, bipolar type QIANA MARTEL MD Apr 06, 2019 21:40
--- NOTE | 2019-04-06 23:41 | PN ---
DATE: 04/04/2019 This late entry 04/04/2019 covers elements not covered in my initial note. Per Karly RN, patient slept 8-1/4 hours previous night. She has been isolative, met with her in her room. REVIEW OF SYSTEMS: No CV, , pulmonary, eye, ENT system symptoms on review. Reliability fair. MENTAL STATUS EXAM: Reasonably oriented. Speech is coherent, often responses monosyllabic. Abstraction fair, computation impaired, language function intact. Mood and affect withdrawn. LABORATORY DATA: Reviewed. IMPRESSION: Unchanged from initial note. PLAN: No change from initial note. MAN Suri MARTEL MD DR: KOSTA/kuldip JOB#: [id number] / [id number]
--- NOTE | 2019-04-06 23:49 | PN ---
DATE: 04/05/2019 PSYCHIATRIC PROGRESS NOTE This late entry 04/05/2019 covers elements not covered in my initial note. SUBJECTIVE: I met with the patient in her room. She slept 6-3/4 hours previous night. Somewhat withdrawn, but otherwise appropriate. REVIEW OF SYSTEMS: No CV, , pulmonary, eye, ENT system symptoms on review. MENTAL STATUS EXAM: Reasonably oriented. Speech is coherent, often responses monosyllabic. Abstraction fair, computation impaired, language function intact, attention span short. Mood and affect withdrawn. LABORATORY DATA: Reviewed. IMPRESSION: Unchanged from initial note. PLAN: No change from initial note. MAN Suri MARTEL MD DR: KOSTA/kuldip JOB#: [id number] / [id number]
[2019-04-07 05:49] VITALS: BP 112/75
[2019-04-07 16:29] VITALS: BP 130/81
[2019-04-07] MEDS: VALPROATE ACID 250 MG/5 ML ORAL SOLUTION PO SCH (19:25)
--- NOTE | 2019-04-07 22:11 | PDOC ---
Exam Note: Johny Note: Please also refer to the separate dictated note~for this date of service dictated separately.~Patient seen individually. Discussed the patient with Nursing staff reviewed the chart.~Reviewed interim history and current functioning. Reviewed vital signs,~Labs/ Radiology~and current medications noted below. Continue current treatment with the changes noted in the dictated addendum note Assessment: Vital Signs/I&O: Vital Signs Date Time Temp Pulse Resp B/P (MAP) Pulse Ox O2 Delivery O2 Flow Rate FiO2 04/07/19 16:29 97.8 80 16 130/81 (97) 97 I & O 04/06/19 04/06/19 04/07/19 15:00 23:00 07:00 Intake Total 960 ml 240 ml 80 ml Balance 960 ml 240 ml 80 ml Current Medications: I have reviewed the current psychotropics carefully including drug interactions. Risk benefit ratio favors no change other than as noted in my dictated progress note. Diagnosis: Problems: (1) Anxiety disorder (2) Bipolar affective disorder, mixed (3) Bipolar affective, mixed, sev w/ psych (4) Major depressive disorder, recurrent episode (5) Impulse control disorder (6) Mild cognitive impairment (7) Schizoaffective disorder, bipolar type QIANA MARTEL MD Apr 07, 2019 22:11
[2019-04-08 05:51] VITALS: BP 117/76
--- NOTE | 2019-04-08 06:28 | PN ---
DATE: 04/06/2019 PSYCHIATRIC PROGRESS NOTE This late entry 04/06/2019 covers elements not covered in my initial note. SUBJECTIVE: I met with the patient evening of 04/06/2019. Per HARSHA Joe, the patient slept 9-3/4 hours previous night. She spends much time in her room, but did come out to the day room a little more during the day today. I met with her in her room. REVIEW OF SYSTEMS: No CV, , PULMONARY, EYE, ENT system symptoms on review. MENTAL STATUS EXAMINATION: The patient is reasonably oriented. Speech is coherent, has some latency. Abstraction fair, computation impaired, language function intact, attention span fair. Mood and affect is improved, still withdrawn. No suicidal or homicidal ideation. No clear psychotic symptoms. LABORATORY DATA: Reviewed. IMPRESSION: Unchanged from initial note. PLAN: No change from initial note. MAN Suri MARTEL MD DR: KOSTA/kuldip JOB#: [id number] / [id number]
[2019-04-08 16:03] VITALS: BP 117/65
[2019-04-08] MEDS: VALPROATE ACID 250 MG/5 ML ORAL SOLUTION PO SCH (20:05)
--- NOTE | 2019-04-08 21:27 | PDOC ---
Exam Note: Johny Note: Please also refer to the separate dictated note~for this date of service dictated separately.~Patient seen individually. Discussed the patient with Nursing staff reviewed the chart.~Reviewed interim history and current functioning. Reviewed vital signs,~Labs/ Radiology~and current medications noted below. Continue current treatment with the changes noted in the dictated addendum note Assessment: Vital Signs/I&O: Vital Signs Date Time Temp Pulse Resp B/P (MAP) Pulse Ox O2 Delivery O2 Flow Rate FiO2 04/08/19 16:03 97.3 78 18 117/65 (82) 97 I & O 04/07/19 04/07/19 04/08/19 14:59 22:59 06:59 Intake Total 720 ml 240 ml 200 ml Balance 720 ml 240 ml 200 ml Current Medications: I have reviewed the current psychotropics carefully including drug interactions. Risk benefit ratio favors no change other than as noted in my dictated progress note. Diagnosis: Problems: (1) Anxiety disorder (2) Bipolar affective disorder, mixed (3) Bipolar affective, mixed, sev w/ psych (4) Major depressive disorder, recurrent episode (5) Impulse control disorder (6) Mild cognitive impairment (7) Schizoaffective disorder, bipolar type QIANA MARTEL MD Apr 08, 2019 21:26
[2019-04-09 05:39] VITALS: BP 102/67
--- NOTE | 2019-04-09 06:16 | PN ---
DATE: 04/07/2019 PSYCHIATRIC PROGRESS NOTE This late entry, 04/07, covers elements not covered in my initial note. SUBJECTIVE: I met with the patient evening of 04/07. Per HARSHA Peña, the patient has been calm, somewhat withdrawn, but cooperative. One of the other demented patient walked into her room and she got a little disturbed by it, but not unreasonably so. REVIEW OF SYSTEMS: No CV, , pulmonary, eye, ENT system symptoms on review. MENTAL STATUS EXAM: Reasonably oriented. Speech is coherent, abstraction fair, computation somewhat impaired, language function intact. Mood and affect withdrawn. Most of her verbal responses are monosyllabic. LABORATORY DATA: Reviewed. IMPRESSION: Unchanged from initial note. PLAN: No change from initial note. Awaiting placement and she can be discharged as soon as placement arranged and that has been true for the last several days. MAN Suri MARTEL MD DR: KOSTA/kuldip JOB#: [id number] / [id number]
[2019-04-09] MEDS: VALPROATE ACID 250 MG/5 ML ORAL SOLUTION PO SCH (21:38)
--- NOTE | 2019-04-09 21:45 | PDOC ---
Exam Note: Ojhny Note: Please also refer to the separate dictated note~for this date of service dictated separately.~Patient seen individually. Discussed the patient with Nursing staff reviewed the chart.~Reviewed interim history and current functioning. Reviewed vital signs,~Labs/ Radiology~and current medications noted below. Continue current treatment with the changes noted in the dictated addendum note Assessment: Vital Signs/I&O: Vital Signs Date Time Temp Pulse Resp B/P (MAP) Pulse Ox O2 Delivery O2 Flow Rate FiO2 04/09/19 05:39 97.3 79 18 102/67 (79) 95 I & O 04/08/19 04/08/19 04/09/19 15:00 23:00 07:00 Intake Total 1080 ml 240 ml Balance 1080 ml 240 ml Current Medications: I have reviewed the current psychotropics carefully including drug interactions. Risk benefit ratio favors no change other than as noted in my dictated progress note. Diagnosis: Problems: (1) Anxiety disorder (2) Bipolar affective disorder, mixed (3) Bipolar affective, mixed, sev w/ psych (4) Major depressive disorder, recurrent episode (5) Impulse control disorder (6) Mild cognitive impairment (7) Schizoaffective disorder, bipolar type QIANA MARTEL MD Apr 09, 2019 21:45
[2019-04-10 06:01] VITALS: BP 120/75
[2019-04-10 16:19] VITALS: BP 138/82
--- NOTE | 2019-04-10 19:44 | PN ---
DATE: 04/08/2019 PSYCHIATRIC PROGRESS NOTE This late entry 04/08/2019 covers elements not covered in my initial note. SUBJECTIVE: I met with the patient evening of 04/08/2019. Per HARSHA Brandt, patient slept 7-1/2 hours previous night. She remains a little withdrawn to her room, but did come out for groups on 04/08/2019. REVIEW OF SYSTEMS: No CV, , pulmonary, eye, ENT system symptoms on review. MENTAL STATUS EXAM: Reasonably oriented. Speech has some latency. Abstraction fair, computation impaired, language function intact. Mood and affect withdrawn, but less so than before. LABORATORY DATA: Reviewed. IMPRESSION: Unchanged from initial note. PLAN: No change from initial note. MAN Suri MARTEL MD DR: KOSTA/kuldip JOB#: [id number] / [id number]
--- NOTE | 2019-04-10 19:46 | PN ---
DATE: 04/09/2019 PSYCHIATRIC PROGRESS NOTE This late entry 04/09/2019 covers elements not covered in my initial note. SUBJECTIVE: I met with the patient in the evening and staffed at a treatment team meeting with the entire team in the morning. The patient is sleeping 8-9 hours, appetite 75%. She has been calm, compliant, little more interactive over the last day or so. REVIEW OF SYSTEMS: No CV, , pulmonary, eye, ENT system symptoms on review. MENTAL STATUS EXAM: Reasonably oriented. Speech is coherent, often responses monosyllabic. Abstraction fair, computation impaired, language function intact, attention span short. Mood and affect less withdrawn. LABORATORY DATA: Reviewed. IMPRESSION: Unchanged from initial note. PLAN: No change from initial note. MAN Suri MARTEL MD DR: KOSTA/kuldip JOB#: [id number] / [id number]
[2019-04-10] MEDS: VALPROATE ACID 250 MG/5 ML ORAL SOLUTION PO SCH (20:45)
--- NOTE | 2019-04-10 21:35 | PDOC ---
Exam Note: Johny Note: Please also refer to the separate dictated note~for this date of service dictated separately.~Patient seen individually. Discussed the patient with Nursing staff reviewed the chart.~Reviewed interim history and current functioning. Reviewed vital signs,~Labs/ Radiology~and current medications noted below. Continue current treatment with the changes noted in the dictated addendum note Assessment: Vital Signs/I&O: Vital Signs Date Time Temp Pulse Resp B/P (MAP) Pulse Ox O2 Delivery O2 Flow Rate FiO2 04/10/19 16:19 97.8 83 18 138/82 (100) 95 I & O 04/09/19 04/09/19 04/10/19 15:00 23:00 07:00 Intake Total 960 ml 240 ml 120 ml Balance 960 ml 240 ml 120 ml Current Medications: I have reviewed the current psychotropics carefully including drug interactions. Risk benefit ratio favors no change other than as noted in my dictated progress note. Diagnosis: Problems: (1) Anxiety disorder (2) Bipolar affective disorder, mixed (3) Bipolar affective, mixed, sev w/ psych (4) Major depressive disorder, recurrent episode (5) Impulse control disorder (6) Mild cognitive impairment (7) Schizoaffective disorder, bipolar type QIANA MARTEL MD Apr 10, 2019 21:35
[2019-04-11 05:43] VITALS: BP 115/77
[2019-04-11 09:31] LABS: BASO % 1 % (0-3); EOS # 0.1 x10^3/uL (0.0-0.7); EOS % 1 % (0-3); HEMATOCRIT 44.8 % (36.0-47.0); HEMOGLOBIN 14.9 g/dL (12.0-15.5); LYMPH # 2.6 x10^3/uL (1.0-4.8); LYMPH % 36 % (24-48); MEAN CORPUSCULAR HEMOGLOBIN 31 pg (25-35); MEAN CORPUSCULAR HGB CONC 33 g/dL (31-37); MEAN CORPUSCULAR VOLUME 94 fL (79-100); MONO # 0.6 x10^3/uL (0.0-1.1); MONO % 8 % (0-9); NEUT # 3.9 x10^3uL (1.8-7.7); NEUT % 54 % (31-73); PLATELET COUNT 236 x10^3/uL (140-400); RED BLOOD COUNT 4.77 x10^6/uL (3.50-5.40); WHITE BLOOD COUNT 7.2 x10^3/uL (4.0-11.0)
[2019-04-11 09:52] LABS: ALBUMIN 3.2 g/dL (3.4-5.0); ALBUMIN/GLOBULIN RATIO 0.8 (1.0-1.7); CALCIUM 9.5 mg/dL (8.5-10.1); CREATININE 0.8 mg/dL (0.6-1.0); GFR 72.7; POTASSIUM 4.3 mmol/L (3.5-5.1); TOTAL BILIRUBIN 0.2 mg/dL (0.2-1.0); TOTAL PROTEIN 7.1 g/dL (6.4-8.2)
[2019-04-11 15:40] VITALS: BP 123/77
[2019-04-11] MEDS: VALPROATE ACID 250 MG/5 ML ORAL SOLUTION PO SCH (19:44)
--- NOTE | 2019-04-11 20:09 | PN ---
DATE: 04/10/2019 PSYCHIATRIC PROGRESS NOTE This late entry of 04/10/2019 covers elements not covered in my initial note. SUBJECTIVE: I met with the patient in the evening of 04/10/2019. Per HARSHA Barajas, the patient does come out more to the day room, slept 7-1/2 hours previous night. REVIEW OF SYSTEMS: No PRNs noted. Less withdrawn than before. No psychotic symptoms as I met with her at length in the evening in her room. MENTAL STATUS EXAM: Reasonably oriented. Speech is coherent, has some latency, often responses monosyllabic. Abstraction fair, computation impaired, language function intact. Mood and affect withdrawn, but improved. She states she was visited by another facility from [place] and feels this visit went well. She is looking forward to her transition. DIAGNOSIS: No change from initial note. PLAN: No change from initial note. MAN Suri MARTEL MD DR: KOSTA/kuldip JOB#: [id number] / [id number]
--- NOTE | 2019-04-11 21:51 | PDOC ---
Exam Note: Johny Note: Please also refer to the separate dictated note~for this date of service dictated separately.~Patient seen individually. Discussed the patient with Nursing staff reviewed the chart.~Reviewed interim history and current functioning. Reviewed vital signs,~Labs/ Radiology~and current medications noted below. Continue current treatment with the changes noted in the dictated addendum note Assessment: Vital Signs/I&O: Vital Signs Date Time Temp Pulse Resp B/P (MAP) Pulse Ox O2 Delivery O2 Flow Rate FiO2 04/11/19 15:40 98.3 78 20 123/77 (92) 97 Room Air I & O 04/10/19 04/10/19 04/11/19 15:00 23:00 07:00 Intake Total 480 ml 600 ml Balance 480 ml 600 ml Labs: Laboratory Tests Test 04/11/19 07:45 White Blood Count 7.2 x10^3/uL (4.0-11.0) Red Blood Count 4.77 x10^6/uL (3.50-5.40) Hemoglobin 14.9 g/dL (12.0-15.5) Hematocrit 44.8 % (36.0-47.0) Mean Corpuscular Volume 94 fL (79-100) Mean Corpuscular Hemoglobin 31 pg (25-35) Mean Corpuscular Hemoglobin Concent 33 g/dL (31-37) Red Cell Distribution Width 14.0 % (11.5-14.5) Platelet Count 236 x10^3/uL (140-400) Neutrophils (%) (Auto) 54 % (31-73) Lymphocytes (%) (Auto) 36 % (24-48) Monocytes (%) (Auto) 8 % (0-9) Eosinophils (%) (Auto) 1 % (0-3) Basophils (%) (Auto) 1 % (0-3) Neutrophils # (Auto) 3.9 x10^3uL (1.8-7.7) Lymphocytes # (Auto) 2.6 x10^3/uL (1.0-4.8) Monocytes # (Auto) 0.6 x10^3/uL (0.0-1.1) Eosinophils # (Auto) 0.1 x10^3/uL (0.0-0.7) Basophils # (Auto) 0.0 x10^3/uL (0.0-0.2) Sodium Level 138 mmol/L (136-145) Potassium Level 4.3 mmol/L (3.5-5.1) Chloride Level 102 mmol/L (98-107) Carbon Dioxide Level 27 mmol/L (21-32) Anion Gap 9 (6-14) Blood Urea Nitrogen 12 mg/dL (7-20) Creatinine 0.8 mg/dL (0.6-1.0) Estimated GFR (Cockcroft-Gault) 72.7 BUN/Creatinine Ratio 15 (6-20) Glucose Level 94 mg/dL (70-99) Calcium Level 9.5 mg/dL (8.5-10.1) Total Bilirubin 0.2 mg/dL (0.2-1.0) Aspartate Amino Transferase (AST) 11 U/L (15-37) L Alanine Aminotransferase (ALT) 10 U/L (14-59) L Alkaline Phosphatase 80 U/L (46-116) Total Protein 7.1 g/dL (6.4-8.2) Albumin 3.2 g/dL (3.4-5.0) L Albumin/Globulin Ratio 0.8 (1.0-1.7) L Current Medications: I have reviewed the current psychotropics carefully including drug interactions. Risk benefit ratio favors no change other than as noted in my dictated progress note. Diagnosis: Problems: (1) Anxiety disorder (2) Bipolar affective disorder, mixed (3) Bipolar affective, mixed, sev w/ psych (4) Major depressive disorder, recurrent episode (5) Impulse control disorder (6) Mild cognitive impairment (7) Schizoaffective disorder, bipolar type QIANA MARTEL MD Apr 11, 2019 21:51
[2019-04-12 06:21] VITALS: BP 98/65
[2019-04-12 16:17] VITALS: BP 128/79
[2019-04-12] MEDS: VALPROATE ACID 250 MG/5 ML ORAL SOLUTION PO SCH (20:09)
--- NOTE | 2019-04-13 02:51 | PN ---
DATE: 04/12/2019 SUBJECTIVE: The patient was seen today, met with the staff, chart reviewed and also covering for Dr. Madsen. The patient was pleasant, denies of having any problems at this time. The patient also stated she was at [facility] several years ago for her psychiatric illness. Staff reports the patient's behavior has improved and no longer having any psychotic symptoms that she had when she came in. OBSERVATION VITAL SIGNS: Temperature is 97.8, blood pressure 98/65, pulse 85, respirations 16, O2 sat 96%. Slept about 10 hours last night. MEDICATIONS: Reviewed. Currently on Depakote 1000 mg at night, Risperdal 25 mg IM q. 2 weeks. The patient's lab reviewed, which were all within the normal range. The patient's Depakote level was 88. ASSESSMENT: 1. Schizoaffective disorder, bipolar type, mixed with psychotic features. 2. Generalized anxiety disorder. PLAN: To continue with the treatment. EM MONTANEZ MD DR: MIRNA/kuldip JOB#: [id number] / [id number]
[2019-04-13 05:31] VITALS: BP 105/70
[2019-04-13] MEDS: CHOLECALCIFEROL (VITAMIN D3) 50,000 UNIT CAPSULE PO SCH (08:00)
[2019-04-13 16:05] VITALS: BP 110/65
[2019-04-13] MEDS: VALPROATE ACID 250 MG/5 ML ORAL SOLUTION PO SCH (20:18)
[2019-04-14 05:26] VITALS: BP 103/69
--- NOTE | 2019-04-14 06:32 | PN ---
DATE: 02/11/2019 SUBJECTIVE: The patient was seen today, met with the staff, chart reviewed. Staff reports no major problems except being withdrawn at times. The patient also able to interact with the staff. OBSERVATION: VITAL SIGNS: Temperature 98.4, blood pressure 105/70, pulse 86, respirations 20, O2 sat 95%. Slept about 9 hours last night. The patient is not having any physical complaints. MEDICATIONS: The patient's current medications include Depakote 1000 mg at night, Risperdal 25 mg IM q. 2 weeks. The patient is not having any side effects. The patient's last Depakote level was 88. ASSESSMENT: 1. Schizoaffective disorder, bipolar type, mixed with psychotic features. 2. Generalized anxiety disorder. PLAN: To continue with the treatment. EM MONTANEZ MD DR: MIRNA/kuldip JOB#: [id number] / [id number]
[2019-04-14 16:20] VITALS: BP 124/81
[2019-04-14] MEDS: VALPROATE ACID 250 MG/5 ML ORAL SOLUTION PO SCH (21:08)
--- NOTE | 2019-04-14 21:47 | PDOC ---
Exam Note: Johny Note: Please also refer to the separate dictated note~for this date of service dictated separately.~Patient seen individually. Discussed the patient with Nursing staff reviewed the chart.~Reviewed interim history and current functioning. Reviewed vital signs,~Labs/ Radiology~and current medications noted below. Continue current treatment with the changes noted in the dictated addendum note Assessment: Vital Signs/I&O: Vital Signs Date Time Temp Pulse Resp B/P (MAP) Pulse Ox O2 Delivery O2 Flow Rate FiO2 04/14/19 16:20 98.2 72 16 124/81 (95) 96 04/14/19 05:26 Room Air I & O 04/13/19 04/13/19 04/14/19 15:00 23:00 07:00 Intake Total 840 ml 480 ml Balance 840 ml 480 ml Current Medications: I have reviewed the current psychotropics carefully including drug interactions. Risk benefit ratio favors no change other than as noted in my dictated progress note. Diagnosis: Problems: (1) Anxiety disorder (2) Bipolar affective disorder, mixed (3) Bipolar affective, mixed, sev w/ psych (4) Major depressive disorder, recurrent episode (5) Impulse control disorder (6) Mild cognitive impairment (7) Schizoaffective disorder, bipolar type QIANA MARTEL MD Apr 14, 2019 21:47
--- NOTE | 2019-04-15 01:42 | PN ---
DATE: 04/11/2019 PSYCHIATRIC PROGRESS NOTE This late entry 04/11/2019 covers elements not covered in my initial note. SUBJECTIVE: I met with the patient in her room on morning of 04/11/2019. The patient slept 8-1/2 hours per HARSHA Joe. She did well previous night and during the day, other than being withdrawn. REVIEW OF SYSTEMS: No CV, , PULMONARY, EYE, ENT system symptoms on review. Reliability fair. MENTAL STATUS EXAM: Reasonably oriented. Speech is coherent, often responses monosyllabic, typical for her. Abstraction fair, computation impaired, language function intact, attention span short. Mood and affect withdrawn, but improved. LABORATORY DATA: Reviewed. IMPRESSION: Unchanged from initial note. PLAN: No change from initial note. MAN Suri MARTEL MD DR: KOSTA/kuldip JOB#: [id number] / [id number]
[2019-04-15 05:39] VITALS: BP 102/68
[2019-04-15 16:16] VITALS: BP 114/76
[2019-04-15] MEDS: VALPROATE ACID 250 MG/5 ML ORAL SOLUTION PO SCH (20:21)
--- NOTE | 2019-04-15 21:52 | PDOC ---
Exam Note: Johny Note: Please also refer to the separate dictated note~for this date of service dictated separately.~Patient seen individually. Discussed the patient with Nursing staff reviewed the chart.~Reviewed interim history and current functioning. Reviewed vital signs,~Labs/ Radiology~and current medications noted below. Continue current treatment with the changes noted in the dictated addendum note Assessment: Vital Signs/I&O: Vital Signs Date Time Temp Pulse Resp B/P (MAP) Pulse Ox O2 Delivery O2 Flow Rate FiO2 04/15/19 16:16 97.1 93 18 114/76 (89) 97 04/15/19 05:39 Room Air I & O 04/14/19 04/14/19 04/15/19 15:00 23:00 07:00 Intake Total 840 ml 720 ml Balance 840 ml 720 ml Current Medications: I have reviewed the current psychotropics carefully including drug interactions. Risk benefit ratio favors no change other than as noted in my dictated progress note. Diagnosis: Problems: (1) Anxiety disorder (2) Bipolar affective disorder, mixed (3) Bipolar affective, mixed, sev w/ psych (4) Major depressive disorder, recurrent episode (5) Impulse control disorder (6) Mild cognitive impairment (7) Schizoaffective disorder, bipolar type QIANA MARTEL MD Apr 15, 2019 21:51
[2019-04-15] MEDS ORDERED: ACET325T9 PO (23:50)
[2019-04-15] MEDS ORDERED: CHOL500021 PO (23:52)
[2019-04-15] MEDS ORDERED: MAG30ORA2 PO (23:54)
[2019-04-15] MEDS ORDERED: MAGN2400 PO (23:54)
[2019-04-15] MEDS ORDERED: METH28OI2 TP (23:55)
[2019-04-15] MEDS ORDERED: OLAN5TAB5 PO (23:56)
[2019-04-16] MEDS ORDERED: VALP250S3 PO
[2019-04-16] MEDS ORDERED: RISP25DI IM (00:01)
--- NOTE | 2019-04-16 01:54 | PN ---
DATE: 04/14/2019 PSYCHIATRIC PROGRESS NOTE This late entry 04/14/2019 covers elements not covered in my initial note. SUBJECTIVE: I met with the patient evening of 04/14/2019. Reviewed information with Dr. Murillo since Dr. Murillo covered for me for the prior 2 days. The patient slept 8-1/2 hours previous night, somewhat withdrawn. Someone wandered into her room who was demented and the patient did not get agitated, just came out and told the nursing staff. Very appropriate in her interactions with staff. Paranoia appears to have subsided significantly. REVIEW OF SYSTEMS: No CV, , pulmonary, eye system symptoms on review. MENTAL STATUS EXAM: Reasonably oriented. Speech is coherent, has some latency, often responses monosyllabic. Abstraction fair, computation impaired, language function intact, attention span fair. Mood and affect are somewhat withdrawn, but improved. LABORATORY DATA: Reviewed. IMPRESSION: Unchanged from initial note. PLAN: No change from initial note. MAN Suri MARTEL MD DR: KOSTA/kuldip JOB#: [id number] / [id number]
[2019-04-16 06:21] VITALS: BP 116/73
--- NOTE | 2019-04-16 21:48 | PDOC ---
Exam Note: Johny Note: Please also refer to the separate dictated note~for this date of service dictated separately.~Patient seen individually. Discussed the patient with Nursing staff reviewed the chart.~Reviewed interim history and current functioning. Reviewed vital signs,~Labs/ Radiology~and current medications noted below. Continue current treatment with the changes noted in the dictated addendum note Assessment: Vital Signs/I&O: Vital Signs Date Time Temp Pulse Resp B/P (MAP) Pulse Ox O2 Delivery O2 Flow Rate FiO2 04/16/19 06:21 97.3 89 18 116/73 (87) 97 04/15/19 05:39 Room Air I & O 04/15/19 04/15/19 04/16/19 15:00 23:00 07:00 Intake Total 720 ml 360 ml Balance 720 ml 360 ml Current Medications: I have reviewed the current psychotropics carefully including drug interactions. Risk benefit ratio favors no change other than as noted in my dictated progress note. Diagnosis: Problems: (1) Anxiety disorder (2) Bipolar affective disorder, mixed (3) Bipolar affective, mixed, sev w/ psych (4) Major depressive disorder, recurrent episode (5) Impulse control disorder (6) Mild cognitive impairment (7) Schizoaffective disorder, bipolar type QIANA MARTEL MD Apr 16, 2019 21:48
--- NOTE | 2019-04-17 18:05 | DS ---
DATE OF DISCHARGE: 04/16/2019 This is a late entry 04/16/2019 covers elements not covered in my initial note. REASON FOR ADMISSION: Please refer to the admission history for details. Briefly, the patient is a 63-year-old female referred to us from the Emergency Room at [facility] where she presented from home after having stopped taking her psychotropics for the bipolar disorder for the past several months. She was at home with her parents taking care of them and gradually getting more psychotic, paranoid. She was withholding medications from her elderly mother, would not allow home health to enter the house, was found to have a large quantity of matches at the bottom of the stairs and the family were unsure of the intent and there was consideration that she could have been a danger due to fire hazard. She was delusional, paranoid, making sexually inappropriate behaviors in the ER in ambulance on the way to the ER and then to us. She has established diagnosis of schizoaffective disorder, bipolar type versus bipolar disorder, mixed with psychotic features and had acute exacerbation of this, was almost catatonic, extremely psychotic when she presented to us. SIGNIFICANT FINDINGS AND CLINICAL COURSE: Following admission, the patient was seen daily individually by myself from a psychiatric standpoint, medical followup with Dr. Ramírez. The patient was refusing all treatments and family were pursuing guardianship. She was started on Depakene and this was adjusted to 1000 mg p.o. at bedtime with a therapeutic level at 88 and she was started on Risperdal Consta 25 mg IM every 2 weeks and in addition to that oral Risperdal increasing up to 1.5 mg at bedtime. Gradually, her psychotic symptoms appeared to subside. She was much more interactive, pleasant, cognitively very intact. At this stage, she was having some extrapyramidal symptoms and the oral Risperdal was discontinued and she was maintained very well just on the Risperdal Consta. Prior to discharge on 04/16/2019, no CV, , pulmonary, eye, ENT system symptoms on review. MENTAL STATUS EXAM: Reasonably oriented. Speech is often responses monosyllabic. Abstraction fair, computation impaired, language function intact. Mood and affect withdrawn, but much improved. Psychotic symptoms had subsided. FINAL DIAGNOSES: Bipolar 1 disorder, mixed with psychotic features, in partial remission; anxiety disorder, unspecified; impulse control disorder, unspecified. DISCHARGE MEDICATIONS: Please refer to the MRAD. I would suggest that starting in 1 month. If the patient is still entirely stable with no psychotic symptoms, the Risperdal Consta could be reduced down from 25 mg IM every 2 weeks to 12.5 mg IM every 2 weeks for 2-3 months and then discontinue. I will leave the final decision of this to her outpatient psychiatrist. Outpatient psychiatric and medical followup at the nursing facility. Time for discharge day management greater than 30 minutes. MAN Suri MARTEL MD DR: KOSTA/kuldip JOB#: [id number] / [id number]
--- NOTE | 2019-04-18 01:10 | PN ---
DATE: 04/15/2019 PSYCHIATRIC PROGRESS NOTE This late entry 04/15/2019 covers the elements not covered in my initial note. SUBJECTIVE: I met with the patient in the evening of 04/15/2019. According to HARSHA Brandt, the patient slept 8-1/2 hours previous night. She has been accepted at [facility] for transition on 04/16/2019. Overall, she is tolerating her psychotropics. No CV, , pulmonary, eye system symptoms on review, somewhat withdrawn to her room, typical for her, but not psychotic. MENTAL STATUS EXAM: Oriented to herself. Insight, judgment, recent memory is impaired, remote is fair. Language function intact. Attention span short. Often verbal responses monosyllabic. No suicidal or homicidal ideation. LABORATORY DATA: Reviewed. IMPRESSION: Unchanged from initial note. PLAN: No change from initial note. At the time of discharge, we would make a notation that Risperdal Consta could be reduced down from 25 mg IM q. 2 weeks down to 12.5 mg IM q. 2 weeks, starting in about one month. She may ultimately be able to get off the Risperdal Consta and hopefully, her bipolar manic symptoms would be adequately controlled just on the Depakote. We will reassess this prior to her discharge. QIANA MARTEL MD DR: KOSTA/kuldip JOB#: [id number] / [id number]
--- NOTE | 2019-04-18 01:35 | PN ---
DATE: 04/15/2019 PSYCHIATRIC PROGRESS NOTE This late entry, 04/15, covers elements not covered in my initial note. SUBJECTIVE: I met with the patient evening of 04/15 in her room. According to HARSHA Brandt, patient slept 8-1/2 hours previous night. She has been accepted at [facility] for discharge on 04/16. DICTATION ENDS HERE. QIANA MARTEL MD DR: KOSTA/kuldip JOB#: [id number] / [id number]
== END 2019-04-16 12:15 | DRG 885 ==
LOC: GEROPSY 23:35
PROVIDERS: ADMIT Psychiatry & Neurology Psychiatry; ATTEND Psychiatry & Neurology Psychiatry
DX: F25.0 Schizoaffective disorder, bipolar type (principal); F03.91 Unspecified dementia, unspecified severity, with behavioral disturbance; F41.9 Anxiety disorder, unspecified; Z91.19 Patient's noncompliance with other medical treatment and regimen; F63.9 Impulse disorder, unspecified; G47.00 Insomnia, unspecified; F41.1 Generalized anxiety disorder; Z79.899 Other long term (current) drug therapy; Z88.8 Allergy status to other drugs, medicaments and biological substances; Z91.011 Allergy to milk products
CPT/HCPCS: 36415; 70486; 80053; 80061; 80164; 81001; 82140; 82306; 83036; 83540; 83550; 83735; 84436; 84443; 84480; 85025; 86592; J1630; J2060; J2794; 99285-25